=== PATIENT | male | born 1955 | race Caucasian/White ===

== ENCOUNTER → 2019-07-24 14:52 | Outpatient (BNVA) | payer OTHER, SELFPAY | PROVIDERS: Family Provider Nurse Practitioner; PCP Nurse Practitioner; Visit Provider Nurse Practitioner | DX: I10 Essential (primary) hypertension (principal); K29.60 Other gastritis without bleeding; E78.2 Mixed hyperlipidemia; R39.11 Hesitancy of micturition; E11.9 Type 2 diabetes mellitus without complications; R31.9 Hematuria, unspecified; Z12.5 Encounter for screening for malignant neoplasm of prostate; N48.9 Disorder of penis, unspecified | CPT/HCPCS: 80053; 80061; 81000; 81001; 85025; G0103 ==

== ENCOUNTER → 2019-07-26 13:51 | Outpatient (BNVA) | payer OTHER, SELFPAY | PROVIDERS: Family Provider Nurse Practitioner; PCP Nurse Practitioner; Visit Provider Urology | DX: R39.11 Hesitancy of micturition (principal); N48.9 Disorder of penis, unspecified; N40.1 Benign prostatic hyperplasia with lower urinary tract symptoms; R97.20 Elevated prostate specific antigen [PSA] | CPT/HCPCS: 81001 ==

== ENCOUNTER → 2019-07-31 12:04 | Outpatient (BNVA) | payer OTHER, SELFPAY | PROVIDERS: Family Provider Nurse Practitioner; PCP Nurse Practitioner; Visit Provider Urology | DX: N48.9 Disorder of penis, unspecified (principal) | CPT/HCPCS: 88305 ==

== ENCOUNTER → 2019-08-07 10:10 | Outpatient (BNVA) | payer OTHER, SELFPAY | PROVIDERS: Family Provider Nurse Practitioner; PCP Nurse Practitioner; Visit Provider Urology | DX: N48.9 Disorder of penis, unspecified (principal); C60.9 Malignant neoplasm of penis, unspecified; N40.1 Benign prostatic hyperplasia with lower urinary tract symptoms; R97.20 Elevated prostate specific antigen [PSA] | CPT/HCPCS: 81001 ==

== ENCOUNTER 2019-08-11 14:39 | Observation (INO) | payer OTHER, SELFPAY ==
[2019-08-09 10:34] VITALS: BMI 26.5
--- NOTE | 2019-08-10 13:12 | SUR.PREOP ---
pt insurance hasnt approved surgery yet, will be rescheduled to tomorrow.
[2019-08-11] VITALS (13 sets, daily range): BP systolic 105–148; BP diastolic 48–83; PULSE 66–96; RESP 13–20; TEMP 36.3–37; O2SAT 94–99
[2019-08-11] MEDS: sodium chloride 0.9% 1,000 ML 30 ML IV (11:24)
--- NOTE | 2019-08-11 12:03 | P.ANESASSM_ITS ---
Pre-Anesthetic Assessment Pre-Anesthetic Assessment: Height/Weight: Height 1.83 m Weight 88.677 kg Temp Pulse Resp BP Pulse Ox 98.1 F 79 18 141/83 99 08/11/19 11:02 08/11/19 11:02 08/11/19 11:02 08/11/19 11:02 08/11/19 11:02 Preop Diagnosis: Invasive penile cancer Proposed Procedure: Operation Date: 08/11/19 12:30 Proposed Procedures p PARTIAL VERSUS TOTAL PENECTOMY [id number] C60.9(Not Applicable) - Shaggy Gray MD s poss Cystoscopy(Not Applicable) - Shaggy Gray MD Familial anesthetic complications: None Was Beta Leo taken within 24 hours: N/A Last intake: Intake Last Liquid Date 08/10/19 Last Liquid Time 20:00 Last Solid Date 08/11/19 Last Solid Time 19:30 Social: Social History: No alcohol and No tobacco Exam: Pre-Anes Outpt Exam: alert, oriented x 3, clear to auscultation bilaterally and regular rate & rhythm Airway: Cervical ROM: WNL MP: 3 Dentition: False Pulmonary: Pulmonary: None reported CV/HEM: CV/HEM: HTN GI: GI: GERD Metabolic: Metabolic: DM (Diet controlled) and Hyperlipidemia Neuropsych: Neuropsych: None reported Anesthetic Plan: ASA status: 2 Anesthesia: General Risk of > 500 ml blood loss (7ml/kg in children): No Meds/Allergies Current Medications: Current Medications Generic Name Dose Route Start Last Admin Trade Name Freq PRN Reason Stop Dose Admin Sodium Chloride 1,000 mls @ 30 ml s/hr 08/11/19 11:00 08/11/19 11:24 Sodium Chloride 0.9% IV 08/12/19 10:59 30 mls/hr .Q24H FARTUN Administration PFSH Anesthesia PFSH: Medical History BPH NOS w ur obs/LUTS Controlled diabetes mellitus without complication Elevated PSA HTN, goal below 130/80 Mixed hyperlipidemia Reflux gastritis Squamous cell skin cancer, penis: glans Surgical History History of appendectomy Family History Other Diabetes Hypertension Social History (Reviewed 08/09/19 @ 10:32 by Tayler Marquis Smoking and tobacco status: light tobacco smoker smokeless tobacco Smokeless tobacco user: chewing tobacco Second hand smoke exposure: No Smoking risk assessment/counseling performed?: No Alcohol intake: never Desire information about alcohol rehabilitation?: No Counseling given: No Desire information about substance/drug rehabilitation?: No Counseling given: No Adopted: No Caregiver/support person: No Lives independently: Yes Household members: spouse Housing: House Marital status: Number of children: 2 service: No Current occupational status: retired Pets and animals: No History of recent travel: No Current gender identity: Male Data Anesthesia Cardiac Studies: No Data to Display
--- NOTE | 2019-08-11 12:41 | P.HPUD_ITS ---
Surgery/Procedure H&P Update DATE OF PROCEDURE: August 11, 2019 DATE H&P PERFORMED: 08/07/19 H&P UPDATE INFORMATION: I have reviewed H&P completed within last 30 days, I have examined patient prior to procedure, No changes to prior documentation and H&P is in [facility] EMR on date indicated PREOP DIAGNOSIS: Invasive penile cancer PLANNED PROCEDURE: Operation Date: 08/11/19 12:30 Proposed Procedures p PARTIAL VERSUS TOTAL PENECTOMY [id number] C60.9(Not Applicable) - Shaggy Gray MD s poss Cystoscopy(Not Applicable) - Shaggy Gray MD
[2019-08-11] MEDS: neomycin-poly-bacitracin oint 28 gm 1 APPLIC TOPICAL (14:14)
--- NOTE | 2019-08-11 14:23 | P.OP_ITS ---
Operative Report Date of procedure: August 11, 2019 Pre-op Diagnosis: Invasive penile cancer Post-op diagnosis: same Procedure Done: Partial penectomy Specimens removed/disposition: Distal penis including glans Surgeon: Isaac Anesthesia: General (Nahid NAV) Estimated blood loss: Less than 50 cc Tourniquet time: Less than 30 minutes Urine output: Not measured Complications: None Findings: Clear margins grossly with approximately 2 cm measured between the lockwood and the proximal division point. Good urethral spatulation with neomeatus No significant bleeding. Condition: stable Disposition: PACU Brief History: Aiden is a very pleasant 64-year-old white male who recently presented to the office with a fungating mass on his penis which was biopsied and shown to have squamous cell carcinoma with invasion. There was some mild enlargement of his ilioinguinal lymph nodes he was placed on antibiotics. Originally was scheduled for partial penectomy yesterday but due to delay in pr ior authorization by his insurance company he was postponed until today. Informed consent was obtained after very prolonged multiple conversations regarding the appropriateness of surgical excision, implications of change of lifestyle etc. He and his both consented. Procedure: After routine preoperative evaluation examination and obtaining of i nformed consent he was taken to the operating suite on 08/11/2019 where general anesthesia was administered without difficulty after appropriate timeout was performed, SCDs confirmed to be functioning, preoperative antibiotics administered, beta-marta protocol confirmed. Positioned on the table in supine position pain careful attention to avoiding pressure points. Prior to prepping and draping the foreskin was retracted landmarks ascertained. He had good penile length which would allow for what appeared to be at least a 2 cm margin and 4 cm plus residual shaft. He was then prepped and draped in the usual sterile fashion A skin incision was made circumferentially at the appropriate level based on the above measurements. Incision was taken down to the fasting tissues of the phallus and was bluntly retracted back to the base. With electrocautery the incision was further deepened down to the corpora cavernosa and the 12:00 neurovascular bundles were multiply ligated for hemostatic control. Scoring with electro cautery circumferentially was used to delineate the landmarks for transection. The urethra was easily definable and length to almost 2 cm was marked for transection. A tourniquet with 1/2 inch Javan drain was then placed at the base and double wrapped with tight hemostat applied. The transection of the penis was begun at the marked area at 12 o'clock position taken down through both corpora cavernosa and laterally and posteriorly to the corporal spongiosum which was sharply dissected off of the distal specimen for a length as marked above and then transected at that point. The corporal cavernosal was closed with interrupted 2-0 Vicryl's utilizing the outer corporal sheath, interseptum, and contralateral outer corporal sheath sequentially and then closed down to close to the level of the corporal spongiosum. The urethra was then spatulated dorsally. Stay sutures were placed at the apex and at the distal wings. A 16 Icelandic catheter was passed to confirm the patency of the urethra proximal to the corporal cavernosal sutures. The tourniquet was then removed. A couple small bleeding sites along the corporal spongiosum were carefully cauterized. There was no bleeding from the corporal cavernosus. The skin was then brought to the distal aspect of the narinder-phallus and the previously placed stay sutures of 3-0 chromic were used to secure the skin ventrally to the urethral neomeatus in corresponding positions running the most ventral horizontal surface. This was performed bilaterally from the lateral wings to the apex where the previous stay suture had been placed. Closure of the skin dorsally covering the corporal cavernosum closure was then conducted with a running 4-0 chromic. 16 Icelandic Hernandez catheter was then placed through the narinder-urethral meatus into the bladder without difficulty and the balloon was inflated and urine drained. Sterile fluff dressing was applied over the incisions and maternity briefs were placed for light compression. He tolerated the procedure well without complications and was awakened in the operating room and returned to the recovery in stable condition. PLANS: 1. Monitor overnight to assure no significant bleeding and good catheter function with anticipation of discharge tomorrow
[2019-08-11] MEDS: lactated ringers 1,000 ML 50 ML IV (16:59)
[2019-08-11] MEDS: doxycycline 100 mg Tablet PO (19:36)
[2019-08-12] MEDS: HYDROcodone-acetaminophen 5-325 mg Tablet 1 TAB PO (02:56)
[2019-08-12 04:00] VITALS: BP 126/69; PULSE 75; RESP 18; TEMP 36.8; O2SAT 94
[2019-08-12 07:42] VITALS: BP 126/90
[2019-08-12] MEDS: losartan 50 mg Tablet 100 MG PO (07:42)
[2019-08-12] MEDS: amlodipine 10 mg Tablet PO (07:42)
[2019-08-12] MEDS: tamsulosin 0.4 mg Capsule PO (07:43)
[2019-08-12] MEDS: atorvastatin 40 mg Tablet 20 MG PO (07:43)
[2019-08-12] MEDS: doxycycline 100 mg Tablet PO (07:44)
[2019-08-12] MEDS: FUROsemide 20 mg Tablet PO (07:44)
[2019-08-12] MEDS: lactated ringers 1,000 ML 50 ML IV (07:45)
[2019-08-12 08:00] VITALS: BP 120/66; PULSE 68; RESP 16; TEMP 36.8; O2SAT 96
--- NOTE | 2019-08-12 08:31 | PM.DCS ---
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 Partial penectomy 08/11/2019. (2) BPH NOS w ur obs/LUTS: Status: Acute (3) HTN, goal below 130/80: Status: Chronic Reason for Visit Reason for Visit: partial versus total penectomy Hospital Course Hospital Course: Admitted on the day of the procedure which went well. Thankfully there was enough shaft length to perform a partial penectomy. Shaft length remaining measured at 4 cm. 1.5 to 2 cm margins were obtained. Hernandez catheter was left indwelling at the completion of the procedure. He was observed overnight with no complications related to bleeding or uncontrolled pain. Was deemed a good candidate for further convalescence at home on postoperative day #1 and was discharged in the care of his family. Catheter was remaining in place at discharge and he was trained in bag management between the leg bag and night bag. A StatLock was used to secure the catheter. Was to continue the doxycycline and reassessment of his inguinal lymph node chains after at least a month. Voiding trial on Wednesday week after discharge. Discharged on 08/11/2019 in stable condition. Physical Exam Const: COMMON NORMALS: no acute distress, alert and well nourished GENERAL APPEARANCE: well kempt and well developed ORIENTATION/CONSCIOUSNESS: not confused Resp: COMMON NORMALS: normal respiratory effort EFFORT & INSPECTION: No labored and No Actively coughing : OTHER: No active bleeding. Catheter functioning well. Clear urine draining. Wounds look healthy. Dressings will be changed prior to discharge. Neuro: SENSORIUM/ORIENTATION: Yes alert Psych: COMMON NORMALS: mental status grossly normal APPEARANCE: Yes grossly normal and Yes well kempt ATTITUDE: Yes calm and Yes engaged Urinary Catheter Management^: Hernandez: Cath Placed During This Visit: yes Reason for Continuing Indwelling Catheter: Perioperative Use in Selected Surgeries Urinary Catheter Date of Insertion: 08/11/19 Urinary Catheter Time of Insertion: 14:00 Discharge Data Data Completed and Pending: Pending at discharge Category Date Time Status Pathology: Surgic al [PTH] Routine Pth 08/11/19 14:16 Ordered Vitals: Last Vital Signs Temp 98.3 F 08/12/19 08:00 Pulse 68 08/12/19 08:00 Resp 16 08/12/19 08:00 BP 120/66 08/12/19 08:00 Pulse Ox 96 08/12/19 08:00 Discharge Plan Discharge Patient Disposition: Home, Self-Care Condition: Stable Prescriptions: [place] 5-325 mg tablet 1 tab PO Q8H PRN (Reason: pain) Qty: 10 RF: 0 Continued sucralfate [Carafate] 1 gram tablet 1 gm PO BID Qty: 60 RF: 5 pravastatin 40 mg tablet 40 mg PO DAILY Qty: 30 RF: 5 olmesartan 40 mg tablet 40 mg PO DAILY Qty: 30 RF: 5 amlodipine 10 mg tablet 10 mg PO DAILY Qty: 30 RF: 5 furosemide [Lasix] 20 mg tablet 20 mg PO DAILY Qty: 30 RF: 5 tamsulosin [Flomax] 0.4 mg capsule 0.4 mg PO DAILY Qty: 30 RF: 5 doxycycline hyclate 100 mg capsule 100 mg PO BID Qty: 60 RF: 1 Discharge Orders: Discharge Order (Routine); Ordered 08/12/19 Ordered By: Shaggy Gray Referrals: Shaggy Gray MD [Physician] - 08/15/19 (Voiding trial) Discharge Diet: Usual diet Discharge Activity: Limit activity as instructed Patient Instructions: Hydrocodone/Acetaminophen (By mouth), Hernandez Catheter Placement and Care (GEN), Urinary Leg Bag (GEN) Activity Restrictions/Additional Instructions: 1. No lifting >10 pounds x 3 to 4 weeks. 2. We will remove the catheter on follow-up visit in my office next Wednesday. 3. Can change dressings as needed. 4. Please call for any concerns or questions. Discharge Attestations Time Spent in Discharge Care*: greater than 30 min Quality Metrics Clinical Quality Measures During this hospital stay, did patient experience: None Coding Level of Care Code Acute Wound/Ostomy Nurse for Chg Fwd Diagnoses Squamous cell skin cancer, penis: glans C60.9 BPH NOS w ur obs/LUTS N40.1 HTN, goal below 130/80 I10
[2019-08-12 08:34] VITALS: BP 120/66; PULSE 68; RESP 16; TEMP 36.8; O2SAT 96
== END 2019-08-12 10:24 | disposition home or self-care (01) ==
LOC: MEDSURG 14:39
PROVIDERS: Admitting Provider Urology; PCP Nurse Practitioner; Visit Provider Urology
PROC: (CPT 54125; principal; 2019-08-11 12:30)
DX: C60.9 Malignant neoplasm of penis, unspecified (principal); N40.1 Benign prostatic hyperplasia with lower urinary tract symptoms; N13.8 Other obstructive and reflux uropathy; I10 Essential (primary) hypertension; K21.9 Gastro-esophageal reflux disease without esophagitis; E11.9 Type 2 diabetes mellitus without complications; E78.2 Mixed hyperlipidemia; Z82.49 Family history of ischemic heart disease and other diseases of the circulatory system; Z83.3 Family history of diabetes mellitus; F17.220 Nicotine dependence, chewing tobacco, uncomplicated
CPT/HCPCS: 54120; 12345; 88305; G0378; J0690; J2001; J2370; J2405; J2704; J3010; J3490; J7030

== ENCOUNTER 2019-09-28 06:34 | Outpatient (CLI) | payer OTHER, SELFPAY ==
--- NOTE | 2019-09-28 06:46 | CT_ITS ---
WS: [id number] CT ABDOMEN PELVIS TECHNIQUE: Noncontrast CT of the abdomen and contrast-enhanced CT of the abdomen and pelvis with jean nal and sagittal reformatted images. CLINICAL INFORMATION: Penile Cancer COMPARISON: None. DLP: 1889.[address] scans at [facility] use at least one of these dose optimization techniques: automat ed exposure control; mA and/or kV adjustment per patient size (includes targeted exams where dose is matched to clinical indication); or iterative reconstruction. FINDINGS: Mild diffuse fatty infiltration liver. Portal vein and splenic vein are patent. Normal gallbladder. N ormal spleen. Normal GE junction. Lung bases are well aerated. Adrenal glands are normal. Normal elle l parenchymal enhancement. No hydronephrosis. 10 mm left renal cyst. No obstructing renal or ureteral calculi. Normal caliber abdominal aorta. Mild diffuse bladder wall thickening. Prostate measures 3.2 x 4.2 CM. Correlation PSA. Normal sigmoid colon. Sigmoid diverticulosis. No evidence of acute diverticulitis. Enlarged bilateral inguinal lymph nodes. Right inguinal lymph node measuring 2.7 x 1.4 cm. Left inguinal lymph node adonay suring 1.9 x 1.2 CM. No pelvic sidewall lymphadenopathy. No iliac chain lymphadenopathy. No periaorti c lymphadenopathy. CT/CT abdomen pelvis wo/w [id number] IMPRESSION: 1. Slightly enlarged bilateral inguinal lymph nodes right greater than left no nspecific may be reactive versus less likely metastatic. Largest lymph node on the right 2.7 x 1.4 cm 2. Prostate measures 4.2 x 3.2 CM. Recommend correlation PSA. Mild diffuse jose dder wall thickening likely due to bladder outlet obstruction. 3. Mild diffuse fatty infiltration liver. 4. 10 mm left renal cyst. 5. Sigmoid diverticulosis. No evidence of acute diverticulitis 6. Bilateral hydroceles with diffuse scrotal skin thickening.
[2019-09-28 07:35] LABS: Blood Urea Nitrogen 20 mg/dL (8-23); Glomerular Filtration Rate 55.6 mL/min (90-130)
[2019-09-28] MEDS: iodixanol 320 mg/mL 100mL Btl 95 ML IV (07:57)
== END 2019-09-28 06:35 | disposition home or self-care (01) ==
PROVIDERS: PCP Nurse Practitioner; Visit Provider Urology
DX: C60.9 Malignant neoplasm of penis, unspecified (principal); N40.0 Benign prostatic hyperplasia without lower urinary tract symptoms; K76.0 Fatty (change of) liver, not elsewhere classified; N28.1 Cyst of kidney, acquired; K57.30 Diverticulosis of large intestine without perforation or abscess without bleeding; N43.3 Hydrocele, unspecified
CPT/HCPCS: 74178; 81001; 82565; 84520

== ENCOUNTER 2019-11-10 08:01 | Outpatient (CLI) | payer OTHER, SELFPAY ==
--- NOTE | 2019-11-10 14:56 | ONC CON_ITS ---
Dr. Lemons New Patient Note Patient: Aiden Simon Unit #: [id number]: 1955 Dicatated By: Henry Lemons M.D.Date of Visit: Nov 10, 2019 Onc MED New Patient/Consult Referring Physician: Dr. Shaggy Gray M.D. Chief Complaint: Penile cancer. 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 By clinical evaluation his disease is stage IV (T1b, N2, M1). He has been in good general health. He had presented to Dr. Gray in July 2019 with a 6-month history of worsening skin changes in head of the penis. His exam showed invasive appearing lesions on the glans penis which were grossly suspicious for squamous cell carcinoma. 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 He then underwent partial penectomy on 08/11/2019. 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 It measured 4.0 x 3.0 cm. The tumor was 4 cm from the skin margin. It was noted to invade into the lamina propria for a depth of 10 mm. There was vascular invasion identified. There was no invasion in the corpus cavernosum, corpus spongiosum, or Appiah's fascia. Pathologic staging was T1b. Following the surgery he had complications with scrotal swelling and erythema, requiring prolonged antibiotic therapy. His CT abdomen/pelvis on 09/28/2019 showed slightly enlarged bilateral inguinal lymph nodes, right greater than left, with the largest node measuring 2.7 x 1.4 cm. There was mild diffuse fatty infiltration of the liver. There was evidence of bilateral hydroceles with diffuse scrotal skin thickening. He was then referred to Dr. Tk Yao at the [facility]. His staging PET/CT on 11/01/2019 showed multiple retroperitoneal, bilateral iliac, bilateral inguinal, and right retrocrural FDG avid enlarged lymph nodes with maximum SUV 23. Focal FDG avid soft tissue nodule at the penile root had maximum SUV 23.6. This was all consistent with metastatic involvement. A left level 3 cervical lymph node was FDG avid with maximum SUV 8.4, felt to be nonspecific. Additional findings included mildly enlarged calcified and noncalcified mediastinal and bilateral hilar lymph nodes without associated FDG activity, felt to be likely reactive. Given the PET/CT findings, he is being seen here now for neoadjuvant chemotherapy. He has not been feeling very good generally. He says he is tired all the time and he sleeps a lot, but he is still doing light work. ECOG score is 1. He has good appetite. He has had no weight loss. He does not have fever or night sweats. He is hard of hearing. He does not complain of shortness of breath, cough, or chest pain. He currently has no GI complaints. He typically has nocturia 2 or 3 times, but he otherwise is not having difficulty voiding. He does have pain in the groin area on both sides. He has no significant joint or bone pain. He does not complain of headache or dizziness, and he has no focal neurologic symptoms. Past Medical History: His medical history consists of benign prostatic hypertrophy, gastroesophageal reflux disease, hyperlipidemia, hypertension, and type II diabetes, diet controlled. Past Surgical History: He underwent biopsy of the penis on 07/27/2019 and he underwent partial penectomy on 08/11/2019. His only other surgery was an appendectomy. Medications: amLODIPine Besylate 1 Tablet (of 10 mg) Oral daily, Ciprofloxacin HCl 1 Tablet (of 500 mg) Oral b.i.d., Furosemide 1 Tablet (of 20 mg) Oral daily, Olmesartan Medoxomil 1 Tablet (of 40 mg) Oral daily, Pravastatin Sodium 1 Tablet (of 40 mg) Oral daily, Sucralfate 1 Tablet (of 1 g) Oral b.i.d., Tamsulosin HCl 1 Capsule (of 0.4 mg) Oral daily Allergies: No Known Allergies. Social History: Mr. Simon is . He is retired. 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 He is a non-smoker, but he chews tobacco 3 times a day. He drinks of beer once a week. Family History: Father with heart attack at age 70. Mother at 69 and a sister at age 62 with cancer, type unknown to the patient. Four brothers are in good health. Review Of Symptoms: Constitutional - His energy has not been very good. He feels tired all the time and he sleeps a lot, but he is still doing light work. He has good appetite. He has not lost weight. He does not have fever or night sweats. ECOG score is 1, Eyes - No change in vision, ENMT - He is hard of hearing. No sinus congestion/drainage. No mouth sores. No sore throat or difficulty swallowing, Hematologic/Lymphatic - No abnormal bruising or bleeding, Respiratory - No shortness of breath. No cough. No pleuritic pain or hemoptysis, Cardiovascular - No angina pain. No palpitations, Gastrointestinal - No nausea or vomiting. He has heartburn/acid reflux, but it is managed adequately with medication. No diarrhea or constipation. No blood in the stool or black stools, Genitourinary (M) - No dysuria or hematuria. No urinary frequency, but he has nocturia up to 2 times. No urgency or incontinence. He has been on antibiotic therapy for scrotal swelling/lymphedema. He has having discomfort in the groin area on both sides, Musculoskeletal - No joint or bone pain, Integumentary - He has no other skin problems, Neurologic - No headache or dizziness. No numbness or tingling. No other focal neurologic symptoms, Psychiatric - No anxiety or depression. No insomnia. Vital Signs: Performed on Nov 10, 2019 08:35: 0, 26.34, 2.10 sq.m, 72.00 in, 99 %, 88 /min, 22 /min, 161/85 mm(hg) (HIGH), 98.3 F (LOW), and 194.2 lbs (HIGH). Physical Examination: Constitutional - He appears to be in good general health, Eyes - Sclerae nonicteric. Conjunctivae clear, ENMT - No lesions noted in the oral cavity, Neck - No mass or thyromegaly, Hematologic/Lymphatic - No cervical, clavicular, or axillary adenopathy, Respiratory - Lungs are clear with good air movement bilaterally, Cardiovascular - Heart rhythm is regular. There is no murmur, gallop, or rub noted, Abdomen - Soft and non-tender. Liver and spleen are not enlarged. There is no abdominal mass or ascites noted. There are palpable inguinal lymph nodes bilaterally, in the range of 2 cm, Genitalia/Groin/Buttock (M) - He has had a partial penectomy. There is residual scrotal swelling with mild erythema. There is a small nodule palpable just superior to the origin of the penile shaft and just to the left of the midline, Back/Spine - No spine or CVA tenderness noted, Extremities - No lower extremity edema. Posterior tibial pulses are palpable bilaterally, Integumentary - No rashes. No suspicious skin lesions noted, Neurologic - No focal neurologic deficits noted. Impression: 1. 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 By clinical evaluation his disease is stage IV (T1b, N. 2, M1) with PET/CT evidence of bilateral inguinal, iliac, retroperitoneal, and retrocrural lymphadenopathy as well as a small metastatic nodule at the penile root. There is additional FDG avid left cervical level 3 lymph node felt to be indeterminate. 2. He underwent partial penectomy on 08/11/2019. 3. He has required prolonged antibiotic therapy for postoperative lymphedema/scrotal swelling. His other medical illnesses include: 4. Hypertension. 5. Hyperlipidemia. 6. Type 2 diabetes, diet controlled. 7. GERD. 8. Benign prostatic hypertrophy. Plan: The surgical/pathology results and the PET/CT findings were reviewed with the patient and his . We discussed the clinical implications. He has advanced penile cancer, and he has been recommended to initially undergo neoadjuvant chemotherapy. The standard regimen for this is a combination of paclitaxel, ifosfamide, and cisplatin given daily for 3 days with cycles repeated every 3 to 4 weeks for a total of 4 cycles. I reviewed anticipated side effects with the chemotherapy including the potential for nausea/vomiting, fatigue, alopecia, low blood counts, bladder irritation, and neuropathy, among others. We also discussed the fact that the neuropathy can include hearing loss. The plan will be to restage with PET/CT after 4 cycles. He will need a Port-A-Cath venous access device and I will go ahead and arrange for him to see one of the surgeons here. He will then return to begin his first cycle of chemotherapy. In the meantime, I also am going to request a next generation sequencing on his tumor, as he will almost certainly require transitioning to second line treatment somewhere down the line. Signed By: Henry Lemons M.D. <<Signature on File>>
== END 2019-11-10 08:02 | disposition home or self-care (01) ==
LOC: ONCMED 08:04
PROVIDERS: PCP Nurse Practitioner; Referring Provider Urology; Visit Provider Internal Medicine Medical Oncology
DX: C60.1 Malignant neoplasm of glans penis (principal); C79.89 Secondary malignant neoplasm of other specified sites; I10 Essential (primary) hypertension; E78.5 Hyperlipidemia, unspecified; E11.9 Type 2 diabetes mellitus without complications; K21.9 Gastro-esophageal reflux disease without esophagitis; N40.0 Benign prostatic hyperplasia without lower urinary tract symptoms
CPT/HCPCS: 99205

== ENCOUNTER → 2019-11-21 15:06 | Outpatient (BNVA) | payer OTHER, SELFPAY | PROVIDERS: PCP Nurse Practitioner; Visit Provider Surgery | DX: Z11.59 Encounter for screening for other viral diseases (principal); R59.1 Generalized enlarged lymph nodes | CPT/HCPCS: 87635 ==

== ENCOUNTER 2019-11-24 05:56 | Day surgery (SDC) | payer OTHER, SELFPAY ==
[2019-11-22 09:27] VITALS: BMI 23.6
--- NOTE | 2019-11-24 | SCC_ITS ---
Procedure Done: Placement of PowerPort in the left subclavian vein 30.2 seconds of fluoroscopic guidance, for a cumulative dose of 6.48 mGy, was provided to Dr. Li by the radiology department. C-arm images of the chest were saved for the patient's permanent record. [facility]
[2019-11-24 06:17] VITALS: BP 132/84; PULSE 65; RESP 18; TEMP 36.2; O2SAT 98
--- NOTE | 2019-11-24 06:35 | SC_ITS ---
WS: [id number] C-arm fluoroscopy of the left chest for Port-A-Cath placement, 11/24/2019 Clinical Data: port placement Comparison: None. Findings: The left Port-A-Cath has been inserted. It appears to end in the superior vena cava. SC/C-arm FL for CVA [id number] Impression: Left Port-A-Cath insertion.
[2019-11-24] MEDS: sodium chloride 0.9% 1,000 ML 30 ML IV (06:39)
--- NOTE | 2019-11-24 06:53 | W.PM.OPSUD ---
Surgery/Procedure H&P Update DATE OF PROCEDURE: November 24, 2019 DATE H&P PERFORMED: 11/21/19 H&P UPDATE INFORMATION: I have reviewed H&P completed within last 30 days, I have examined patient prior to procedure and No changes to prior documentation PREOP DIAGNOSIS: penile ca PLANNED PROCEDURE: Operation Date: 11/24/19 07:00 Proposed Procedures p Portacath Placement 44283 R59.1(Not Applicable) - Linwood Li MD
--- NOTE | 2019-11-24 07:01 | ANES.PREANE2 ---
Pre-Anesthetic Assessment Pre-Anesthetic Assessment: Height/Weight: Height 1.78 m Weight 74.843 kg Temp Pulse Resp BP Pulse Ox 97.2 F L 65 18 132/84 98 11/24/19 06:17 11/24/19 06:17 11/24/19 06:17 11/24/19 06:17 11/24/19 06:17 Preop Diagnosis: penile ca Proposed Procedure: Operation Date: 11/24/19 07:00 Proposed Procedures p Portacath Placement 10646 R59.1(Not Applicable) - Linwood Li MD Was Beta Leo taken within 24 hours: N/A Last intake: Intake Last Liquid Date 11/23/19 Last Liquid Time 20:30 Last Solid Date 11/23/19 Last Solid Time 20:30 Social: Social History: No alcohol and No tobacco Exam: Pre-Anes Outpt Exam: alert, oriented x 3, clear to auscultation bilaterally and regular rate & rhythm Airway: Submandibular: WNL Cervical ROM: WNL Dentition: Chipped History/ROS: No significant complaints Pulmonary: Pulmonary: None reported CV/HEM: CV/HEM: HTN : Comments: BPH Hepatic: Hepatic: None reported GI: GI: None reported Metabolic: Metabolic: None reported Musc/skel: Musc/skel: None reported Neuropsych: Neuropsych: None reported Anesthetic Plan: ASA status: 3 Anesthesia: MAC Meds/Allergies Current Medications: Current Medications Generic Name Dose Route Start Last Admin Trade Name Freq PRN Reason Stop Dose Admin Sodium Chloride 1,000 mls @ 30 ml s/hr 11/24/19 06:30 11/24/19 06:39 Sodium Chloride 0.9% IV 30 mls/hr .Q24H FARTUN Administration PFSH Anesthesia PFSH: Medical History BPH NOS w ur obs/LUTS Controlled diabetes mellitus without complication Elevated PSA HTN, goal below 130/80 Mixed hyperlipidemia Reflux gastritis Scrotal swelling Squamous cell skin cancer, 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 Partial penectomy 08/11/2019. Surgical History (Updated 11/24/19 @ 07:03 by Linwood Li MD) History of appendectomy Port-A-Cath in place (11/24/19) Family History Father CAD (coronary artery disease) Sister Cancer Mother Cancer Other Diabetes Hypertension Denies family history of Anesthesia complication Bleeding disorder Social History Smoking and tobacco status: light tobacco smoker smokeless tobacco Smokeless tobacco user: chewing tobacco Second hand smoke exposure: No Smoking risk assessment/counseling performed?: No Alcohol intake: never Desire information about alcohol rehabilitation?: No Counseling given: No Desire information about substance/drug rehabilitation?: No Counseling given: No Adopted: No Caregiver/support person: No Lives independently: Yes Household members: spouse Housing: House Marital status: Number of children: 2 service: No Current occupational status: retired Pets and animals: No History of recent travel: No Current gender identity: Male Data Anesthesia Cardiac Studies: No Data to Display
[2019-11-24] MEDS: lidocaine 1% INJ 20 mL IM (07:21)
[2019-11-24] MEDS: heparin, porcine 1,000 unit/mL INJ 10 mL 10000 UNIT INJECTION (07:22)
[2019-11-24 07:53] VITALS: BP 108/71; PULSE 64; RESP 18; TEMP 36.6; O2SAT 95
[2019-11-24 08:11] VITALS: BP 112/72; PULSE 59; RESP 18; TEMP 36.6; O2SAT 97
--- NOTE | 2019-11-24 08:12 | PM.OP ---
Operative Report Date of procedure: November 24, 2019 Pre-op Diagnosis: penile ca Post-op diagnosis: same Procedure Done: Placement of PowerPort in the left subclavian vein Fluoroscopic guidance and interpretation for placement of catheter Pathology: none sent Surgeon: Linwood Li Anesthesia: MAC Estimated blood loss (mL): 5 Condition: stable Disposition: PACU Procedure: The patient was taken to the Operating Room and the chest and neck bilaterally were prepped and draped in a sterile manner after the antibiotic had been administered and shoulder rolls had been placed. A total of 10 mL of 1% lidocaine with 0.5% Marcaine was infiltrated under the clavicle on the left side at the site of the planned entry into the subclavian vein. An introducer needle was then used to access the subclavian vein under the clavicle and after withdrawing blood syringe was removed and a guidewire passed under fluoroscopy into the superior vena cava. The site of the planned port was then marked on the chest and a 15 blade was used to make a 3 cm skin incision this was extended into the subcutaneous tissue using electrocautery and a subcutaneous pocket over the pectoralis fascia was created 2-0 Vicryl suture was used to suture the port to the pectoral fascia in the pocket on 3 sides. The catheter, after having been flushed with hep saline, was attached to the tunneler and a tunnel created between the port site and the subclavian vein entry site. Under fluoroscopy the dilator sheath was passed over the guidewire into the proximal superior vena cava. The inner dilator was removed and the sheath left behind and~ the catheter was introduced through the peel-away sheath with the tip in the superior vena cava. The peel-away sheath was removed. The proximal end of the catheter was cut to the right size and was attached to the port. Using a Murrell needle the port was accessed, it withdrew blood easily and flushed easily. A final 5cc of heparin was used to flush the PowerPort. The subcutaneous tissue was approximated using interrupted 3-0 Vicryl sutures and the skin at the introducer site and the port site was closed using subcuticular running 4-0 Monocryl sutures. Surgical glue was applied and the patient was stable throughout the procedure. Fluoroscopic guidance and interpretation was performed for introduction of the guidewire in the left subclavian vein, passage of dilator and placement of catheter tip in the distal superior vena cava.
== END 2019-11-24 08:40 | disposition home or self-care (01) ==
PROVIDERS: PCP Nurse Practitioner; Visit Provider Surgery
PROC: (CPT 36561; principal; 2019-11-24 07:00)
DX: C60.9 Malignant neoplasm of penis, unspecified (principal); N40.1 Benign prostatic hyperplasia with lower urinary tract symptoms; N13.8 Other obstructive and reflux uropathy; I10 Essential (primary) hypertension; E78.2 Mixed hyperlipidemia; Z82.49 Family history of ischemic heart disease and other diseases of the circulatory system; Z80.9 Family history of malignant neoplasm, unspecified; Z87.891 Personal history of nicotine dependence
CPT/HCPCS: 36561; 12345; 76000; 77001; C1788; J0690; J1644; J2250; J2704; J2765; J3010; J3490; J7030

== ENCOUNTER 2019-12-15 05:39 | Outpatient (RCR) | payer OTHER, SELFPAY ==
[2019-11-29 08:32] LABS: Basophils % 0.1 %; Hematocrit 36.4 % (42.0-52.0); Hemoglobin 11.3 g/dL (11.7-16.6); Lymphocytes # 0.6 10^3/uL (0.8-4.8); Lymphocytes % 5.6 %; Mean Corpuscular Volume 87.1 fL (80-94); Mean Platelet Volume 9.1 fL (7.4-10.4); Monocytes # 0.1 10^3/uL (0.2-0.9); Monocytes % 1.2 %; Neutrophils # 9.55 10^3/uL (1.8-7.7); Neutrophils % 92.5 %; Nucleated Red Blood Cells % 0 %; Platelet Count 350 10^3/cmm (130-400); Red Blood Count 4.18 10^6/uL (4.1-5.3); Red Cell Distribution Width 13.3 % (12.1-15.1); White Blood Count 10.3 10^3/uL (4.0-10.0)
[2019-11-29 08:57] LABS: Alanine Aminotransferase 22 U/L (0-41); Albumin Level 4.3 g/dL (3.5-5.2); Alkaline Phosphatase 88 IU/L (40-130); Anion Gap 16.9 (5-19); Aspartate Amino Transferase 23 U/L (0-40); Blood Urea Nitrogen 15 mg/dL (8-23); Carbon Dioxide 22 mmol/L (22-29); Chloride 102 mmol/L (98-107); Globulin 2.9 g/dL (1.3-4.6); Glucose 289 mg/dL (65-115); Osmolality Calculated 295 mOsm/kg (285-295); Potassium 3.9 mmol/L (3.5-5.1); Sodium 137 mmol/L (136-145); Total Bilirubin 0.3 mg/dL (0.15-1.2); Total Protein 7.2 g/dL (6.6-8.7)
[2019-11-29] MEDS: sodium chloride 0.9% 250 ML 75 ML IV ×2 (09:41)
[2019-12-04] MEDS: sodium chloride 0.9% 250 ML 75 ML IV (08:43)
[2019-12-04] MEDS: acetaminophen 325 mg Tablet 650 MG PO (10:55)
--- NOTE | 2019-12-04 13:39 | ONC FU_ITS ---
[facility] Patient Note Patient: Aiden Simon Unit #: [id number]: 1955 Dictated By: Kathia SharpDate of Visit: Dec 04, 2019 Onc MED Follow-Up/Prog Note Chief Complaint: Penile cancer. 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 By clinical evaluation his disease is stage IV (T1b, N2, M1). He has been in good general health. He had presented to Dr. Gray in July 2019 with a 6-month history of worsening skin changes in head of the penis. His exam showed invasive appearing lesions on the glans penis which were grossly suspicious for squamous cell carcinoma. 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 He then underwent partial penectomy on 08/11/2019. 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 It measured 4.0 x 3.0 cm. The tumor was 4 cm from the skin margin. It was noted to invade into the lamina propria for a depth of 10 mm. There was vascular invasion identified. There was no invasion in the corpus cavernosum, corpus spongiosum, or Appiah's fascia. Pathologic staging was T1b. Following the surgery he had complications with scrotal swelling and erythema, requiring prolonged antibiotic therapy. His CT abdomen/pelvis on 09/28/2019 showed slightly enlarged bilateral inguinal lymph nodes, right greater than left, with the largest node measuring 2.7 x 1.4 cm. There was mild diffuse fatty infiltration of the liver. There was evidence of bilateral hydroceles with diffuse scrotal skin thickening. He was then referred to Dr. Tk Yao at the [facility]. His staging PET/CT on 11/01/2019 showed multiple retroperitoneal, bilateral iliac, bilateral inguinal, and right retrocrural FDG avid enlarged lymph nodes with maximum SUV 23. Focal FDG avid soft tissue nodule at the penile root had maximum SUV 23.6. This was all consistent with metastatic involvement. A left level 3 cervical lymph node was FDG avid with maximum SUV 8.4, felt to be nonspecific. Additional findings included mildly enlarged calcified and noncalcified mediastinal and bilateral hilar lymph nodes without associated FDG activity, felt to be likely reactive. Given the PET/CT findings, he is being seen here now for neoadjuvant chemotherapy. He had left subclavian PowerPort placed by Dr. Li on 11/24/2019 Mr. Simon is here today to start his first cycle of Taxol/ifosfamide/cisplatin. He actually presented last week but only took 1 tablet of his steroids. Steroid compliance was confirmed today. He states he took 5 at 11:00 last night and again 5 tablets again at 4 AM. He has no new concerns. He denies any fever or chills. He has had no known Covid exposure or symptoms. He has had no Covid testing recently. He denies any pain. He states his breathing is good. He is very active working in his shop. 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 He states he does not watch TV and he does not sit still very long. He states his appetite is good. He has no neuropathy symptoms. He denies any bowel or bladder concerns. His ECOG is 0. Past Medical History: Benign prostatic hypertrophy Gastroesophageal reflux disease Hyperlipidemia Hypertension Type II diabetes Past Surgical History: Appendectomy Left subclavian PowerPort by Dr. Li???[facility] in 2019 Partial penectomy in 2020 Allergies: No Known Allergies. Medications: amLODIPine Besylate 1 Tablet (of 10 mg) Oral daily Furosemide 1 Tablet (of 20 mg) Oral daily Olmesartan Medoxomil 1 Tablet (of 40 mg) Oral daily Pravastatin Sodium 1 Tablet (of 40 mg) Oral daily Sucralfate 1 Tablet (of 1 g) Oral b.i.d. Tamsulosin HCl 1 Capsule (of 0.4 mg) Oral daily Family History: Mr. Simon's mother at age 62. Mr. Simon's father at age 70: heart attack. Mr. Simon has 1 sister who is . Father with heart attack at age 70. Mother at 69 and a sister at age 62 with cancer, type unknown to the patient. Four brothers are in good health. Social History: Mr. Simon is . He is a light tobacco smoker. He has no history of drinking. He has indicated exposure to the following products: cigarettes and chewing tobacco. He is retired. He restores [employer] for a hobby. He is a non-smoker, but he chews tobacco 3 times a day. He drinks of beer once a week. Review Of Symptoms: Constitutional Denies fevers, chills, night sweats, excessive fatigue or weight loss. Allergic/Immunologic No reactions. Eyes Denies significant visual changes. No diplopia. No amaurosis. ENMT Denies changes in hearing, sore throat, mouth sores, difficulty or changes in swallowing ability, and/or sinus drainage. Endocrine No diabetes, thyroid disease or hormone replacement. Denies hot flashes or night sweats. Hematologic/Lymphatic Denies easy bruising or bleeding. The patient denies any tender or palpable lymph nodes. Respiratory Denies dyspnea on exertion, chest pain, cough or hemoptysis. Denies orthopnea. Cardiovascular Denies anginal chest pain, palpitations or orthopnea. Gastrointestinal Denies nausea, vomiting, diarrhea, GI bleeding, or constipation. Denies change in bowel habits and/or stool color, no heartburn or early satiety. Genitourinary (M) Denies hematuria, dysuria, increased frequency, urgency, hesitancy or incontinence. Musculoskeletal Denies joint pain, swelling or redness. No decreased range of motion. Integumentary Denies chronic rashes, inflammation, ulcerations or skin changes. Neurologic Denies headache, blurred vision, and no areas of focal weakness or numbness. Normal gait. No sensory problems. Psychiatric Denies insomnia, depression, shanelle or mood swings. Vital Signs: Performed on Dec 04, 2019 08:33 Height - 72.00 in Weight - 195.2 lbs (HIGH) BSA - 2.11 sq.m BMI - 26.47 Temperature - 98.7 F Pulse - 98 /min Respiration - 18 /min BP - 146/84 mm(hg) (HIGH) O2 Sat - 98 % Pain - 0,0 - Fully active, able to carry on all predisease activities without restrictions. (ECOG) Physical Examination: Constitutional Alert, oriented, no acute distress. Skin pink, warm and dry. Head Normocephalic; atraumatic. Eyes Conjunctivae and sclerae are clear and without icterus. Pupils are reactive and equal. ENMT No oral exudates, ulcers, masses, thrush or mucositis. Oropharynx clear. Tongue normal. Neck Supple without masses or thyromegaly. No jugular venous distension. Hematologic/Lymphatic No petechiae or purpura. No tender or palpable lymph nodes in the cervical or supraclavicular areas. Respiratory Lungs are clear to auscultation without rhonchi or wheezing. Cardiovascular Regular rate and rhythm of heart without murmurs,clicks, gallops or rubs. Chest Chest is symmetric without chest wall deformities. Left chest wall Port-A-Cath site is healing well. It is unremarkable. Abdomen Non-tender, non-distended, no masses or ascites. Good bowel sounds noted in all quads. No guarding or rebound tenderness. No pulsatile masses. Back/Spine Non-tender to palpation. Extremities No visible deformities, no cyanosis, clubbing or edema. Musculoskeletal No tenderness or swelling, normal range of motion without obvious weakness. Integumentary No rashes or lesions. Neurologic No sensory or motor deficits, normal cerebellar function, normal gait. Psychiatric Alert and oriented times three. Coherent speech. Verbalizes understanding of our discussions today. Laboratory: Impression: 1. 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 By clinical evaluation his disease is stage IV (T1b, N2, M1) with PET/CT evidence of bilateral inguinal, iliac, retroperitoneal, and retrocrural lymphadenopathy as well as a small metastatic nodule at the penile root. There is additional FDG avid left cervical level 3 lymph node felt to be indeterminate. 2. He underwent partial penectomy on 08/11/2019. 3. He has required prolonged antibiotic therapy for postoperative lymphedema/scrotal swelling. His other medical illnesses include: 4. Hypertension. 5. Hyperlipidemia. 6. GERD. 7. Benign prostatic hypertrophy. The surgical/pathology results and the PET/CT findings were reviewed with the patient and his per Dr Lemons. He discussed the clinical implications. He has advanced penile cancer, and he has been recommended to initially undergo neoadjuvant chemotherapy. The standard regimen for this is a combination of paclitaxel, ifosfamide, and cisplatin given daily for 3 days with cycles repeated every 3 to 4 weeks for a total of 4 cycles. The plan will be to restage with PET/CT after [address] Lemons has requested a next generation sequencing on his tumor, as he will almost certainly require transitioning to second line treatment somewhere down the line. Mr Simon had Power port placement by Dr. Li on 11/24/2019. He tolerated that well. Mr. Ham presented last week to start his first cycle of Taxol/ifosfamide/cisplatin but had not taking his premed steroids correctly and was rescheduled for today. I did verify that he did take 20 mg of dexamethasone 6 and 12 hours prior to his appointment today. Plan: 1. Proceed with cycle 1 Taxol/ifosfamide/cisplatin. 2. Aggressive antiemetics due to high risk regimen. He will have Compazine and lorazepam as needed at home. We did discuss that he could use lorazepam to help him sleep with the steroids keep him awake. 3. Labs from 11/29/2019 were reviewed in detail and discussed with Mr. Simon and a copy was given to him. WBC 10.3, hemoglobin 11.3, platelets 250,000 ANC was 9550. Potassium 3.9 creatinine 0.9 LFTs were normal. It was noted that his glucose at that time was 289. 4. He will have weekly interim counts via his port with port flushes. 5. We will plan to see him back in 3 weeks with CBC CMP and plan for cycle 2 chemotherapy. I have asked for a day 8 follow-up as well. 6. The patient was informed of chemotherapy plan and specific drugs were discussed. We also discussed how chemotherapy works and identified common side effects including alopecia; myelosuppression-including neutropenia, anemia, thrombocytopenia; peripheral neuropathy; fatigue; nausea; diarrhea; constipation; bleeding or bruising; skin changes; mouth sores; drug hypersensitivity/allergic reactions or anaphylaxis and extravasation. They have also been informed how to contact the clinic with side effects or symptoms, including but not limited to fever greater than 100.4???, chills, sore throat, bleeding or bruising that is not explained or mouth sores, cough, nasal discharge, diarrhea, constipation, nausea and/or vomiting not relieved with medications on hand at home, as well as any other concern or question they may have. Our hours are 8:00 a.m. to 4:30 p.m. on Wednesday through and 8-12:00 on Wednesday. However, someone is computer system validation specialist 24 hours per day and they have been advised to contact the [facility] at if it is after hours. We have also discussed potential long-term side effects of chemotherapy including secondary cancers, infertility, pulmonary complications, cardiac complications, and again peripheral neuropathy. We have discussed that they certainly need to let us know before taking any antioxidants or herbal or further dietary supplements, as we are unsure of how these agents react with chemotherapy and we request that they avoid these products for now. They were informed that it is okay to take multivitamins at normal doses. They verbally state that they understand to take all medications as directed by their healthcare provider unless otherwise indicated. They also verbalized understanding to leave the pressure dressing on the intravenous administration site for at least two hours after treatment. Instructions for oral care with baking soda and salt water rinses as well as a guide for use of [id number] medication were provided with the treatment plan. They have been given a written patient treatment plan, of which a copy is in the chart, as well as specific drug information. They have no questions and verbalized understanding and are willing to proceed with chemotherapy at this time. The majority of this visit (greater than 30 minutes) was spent in face to face communication with this patient in regards to the plan of care, side effect identification and management. Signed By: Kathia Sharp-, [facility] Henry Lemons MD <<Signature on File>>
[2019-12-04] MEDS: FUROsemide 10 mg/mL SDV 2mL 20 MG IV (16:00)
[2019-12-04] MEDS: sodium chlor 0.9% + KCl 20 mEq 20 MEQ/1,000 ML BAG 500 MEQ IV (16:00)
[2019-12-05] MEDS: acetaminophen 325 mg Tablet 650 MG PO (10:05)
[2019-12-05] MEDS: loperamide 2 mg Capsule 4 MG PO (13:20)
[2019-12-05] MEDS: FUROsemide 10 mg/mL SDV 2mL 20 MG IV (13:35)
[2019-12-05] MEDS: sodium chlor 0.9% + KCl 20 mEq 20 MEQ/1,000 ML BAG 500 MEQ IV (13:37)
[2019-12-06] MEDS: acetaminophen 325 mg Tablet 650 MG PO (09:30)
[2019-12-06] MEDS: FUROsemide 10 mg/mL SDV 2mL 20 MG IV (13:05)
[2019-12-06] MEDS: sodium chlor 0.9% + KCl 20 mEq 20 MEQ/1,000 ML BAG 500 MEQ IV (13:07)
[2019-12-13 12:38] LABS: Eosinophils % 3.1 %; Hematocrit 32.9 % (42.0-52.0); Hemoglobin 10.3 g/dL (11.7-16.6); Lymphocytes # 0.6 10^3/uL (0.8-4.8); Lymphocytes % 60.4 %; Mean Corpuscular HGB Conc 31.3 g/dL (30.0-36.0); Mean Corpuscular Hemoglobin 26.6 pg (28.0-34.0); Mean Platelet Volume 9.1 fL (7.4-10.4); Monocytes # 0.1 10^3/uL (0.2-0.9); Monocytes % 13.5 %; Nucleated Red Blood Cells % 0 %; Platelet Count 209 10^3/cmm (130-400); Red Blood Count 3.87 10^6/uL (4.1-5.3); Red Cell Distribution Width 13.4 % (12.1-15.1)
[2019-12-13 12:50] LABS: Alanine Aminotransferase 25 U/L (0-41); Albumin Level 3.9 g/dL (3.5-5.2); Alkaline Phosphatase 90 IU/L (40-130); Anion Gap 12.7 (5-19); Aspartate Amino Transferase 27 U/L (0-40); Blood Urea Nitrogen 11 mg/dL (8-23); Calcium 8.2 mg/dL (8.5-10.5); Carbon Dioxide 25 mmol/L (22-29); Chloride 99 mmol/L (98-107); Globulin 2.8 g/dL (1.3-4.6); Glucose 193 mg/dL (65-115); Osmolality Calculated 283 mOsm/kg (285-295); Sodium 134 mmol/L (136-145); Total Bilirubin 0.2 mg/dL (0.15-1.2); Total Protein 6.7 g/dL (6.6-8.7)
[2019-12-13 12:54] LABS: Potassium 2.7 mmol/L (3.5-5.1)
[2019-12-13] MEDS: potassium chloride 20 MEQ in sodium chloride 0.9% 500 ML 250 MEQ IV (14:08)
--- NOTE | 2019-12-13 23:54 | ONC FU_ITS ---
[facility] Patient Note Patient: Aiden Simon Unit #: [id number]: 1955 Dictated By: Kathia SharpDate of Visit: Dec 13, 2019 Onc MED Follow-Up/Prog Note Chief Complaint: Penile cancer. 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 By clinical evaluation his disease is stage IV (T1b, N2, M1). He has been in good general health. He had presented to Dr. Gray in July 2019 with a 6-month history of worsening skin changes in head of the penis. His exam showed invasive appearing lesions on the glans penis which were grossly suspicious for squamous cell carcinoma. 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 He then underwent partial penectomy on 08/11/2019. 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 It measured 4.0 x 3.0 cm. The tumor was 4 cm from the skin margin. It was noted to invade into the lamina propria for a depth of 10 mm. There was vascular invasion identified. There was no invasion in the corpus cavernosum, corpus spongiosum, or Appiah's fascia. Pathologic staging was T1b. Following the surgery he had complications with scrotal swelling and erythema, requiring prolonged antibiotic therapy. His CT abdomen/pelvis on 09/28/2019 showed slightly enlarged bilateral inguinal lymph nodes, right greater than left, with the largest node measuring 2.7 x 1.4 cm. There was mild diffuse fatty infiltration of the liver. There was evidence of bilateral hydroceles with diffuse scrotal skin thickening. He was then referred to Dr. Tk Yao at the [facility]. His staging PET/CT on 11/01/2019 showed multiple retroperitoneal, bilateral iliac, bilateral inguinal, and right retrocrural FDG avid enlarged lymph nodes with maximum SUV 23. Focal FDG avid soft tissue nodule at the penile root had maximum SUV 23.6. This was all consistent with metastatic involvement. A left level 3 cervical lymph node was FDG avid with maximum SUV 8.4, felt to be nonspecific. Additional findings included mildly enlarged calcified and noncalcified mediastinal and bilateral hilar lymph nodes without associated FDG activity, felt to be likely reactive. Given the PET/CT findings, he is being seen here now for neoadjuvant chemotherapy. He had left subclavian PowerPort placed by Dr. Li on 11/24/2019 Mr. Simon is here today for followup after starting his first cycle of Taxol/ifosfamide/cisplatin on 12/04/2019. He states overall he feels really good. He states that he tolerated the first round well. He states only taken 2 nausea pills and that was for mild to moderate nausea. He denies any emesis. He states that he tires pretty easily but if he rests and takes a nap in the afternoon he recovers well. He is able to do all of his chores without assistance although it does take him a little bit longer than his normal. But he is able to do things that he wants to be doing within reason. He states that he has had diarrhea that started after the chemotherapy that was persistent for 5 to 6 days. He states it is of brown liquid. He states he stopped for couple days and then a high now has resumed. He has had up to 3 loose stools already today. He has not been taking any Imodium or antidiarrheal [id number]. It is noted that he has been on antibiotics for scrotal swelling which is responding to the antibiotics. He will have C. difficile testing today if he can produce a stool sample. He denies any neuropathy. He has had no mouth sores sore throat or difficulty swallowing. He denies any palpitations. He denies any chest pain. He states that his urinary patterns are normal for him. He denies any lower extremity edema at this point. He states the scrotal swelling is much better. He states he is eating good. He has been try to drink fluids but has had a lot of diarrhea as well. His ECOG is 1. Past Medical History: Benign prostatic hypertrophy Gastroesophageal reflux disease Hyperlipidemia Hypertension Type II diabetes Past Surgical History: Appendectomy [place] subclavian [place]. [place] [place] in 2020 Allergies: No Known Allergies. Medications: amLODIPine Besylate 1 Tablet (of 10 mg) Oral daily Furosemide 1 Tablet (of 20 mg) Oral daily Olmesartan Medoxomil 1 Tablet (of 40 mg) Oral daily Pravastatin Sodium 1 Tablet (of 40 mg) Oral daily Sucralfate 1 Tablet (of 1 g) Oral b.i.d. Tamsulosin HCl 1 Capsule (of 0.4 mg) Oral daily Family History: Mr. Simon's mother at age 62. Mr. Simon's father at age 70: heart attack. Mr. Simon has 1 sister who is . Father with heart attack at age 70. Mother at 69 and a sister at age 62 with cancer, type unknown to the patient. Four brothers are in good health. Social History: Mr. Simon is . He is a light tobacco smoker. He has no history of drinking. He has indicated exposure to the following products: cigarettes and chewing tobacco. He is retired. He restores [employer] for a hobby. He is a non-smoker, but he chews tobacco 3 times a day. He drinks of beer once a week. Review Of Symptoms: Constitutional Denies fevers, chills, night sweats, excessive fatigue or weight loss. Has fatigue but recovers well with rest. Allergic/Immunologic No reactions. Eyes Denies significant visual changes. No diplopia. No amaurosis. ENMT Denies changes in hearing, sore throat, mouth sores, difficulty or changes in swallowing ability, and/or sinus drainage. Hematologic/Lymphatic Denies easy bruising or bleeding. The patient denies any tender or palpable lymph nodes. Respiratory Denies dyspnea on exertion, chest pain, cough or hemoptysis. Denies orthopnea. Cardiovascular Denies anginal chest pain, palpitations or orthopnea. Gastrointestinal Denies persistent or uncontrolled nausea, vomiting, GI bleeding, or constipation. Denies change in bowel habits and/or stool color, no heartburn or early satiety. Having diarrhea-see above. Genitourinary (M) Denies hematuria, dysuria, increased frequency, urgency, hesitancy or incontinence. Musculoskeletal Denies joint pain, swelling or redness. No decreased range of motion. Integumentary Denies chronic rashes, inflammation, ulcerations or skin changes. Neurologic Denies headache, blurred vision, and no areas of focal weakness or numbness. Normal gait. No sensory problems. Psychiatric Denies insomnia, depression, shanelle or mood swings. Vital Signs: Performed on Dec 13, 2019 13:20 Height - 72.00 in Weight - 196.1 lbs (HIGH) BSA - 2.11 sq.m BMI - 26.60 Temperature - 98.4 F Pulse - 81 /min Respiration - 18 /min BP - 111/61 mm(hg) O2 Sat - 95 % (LOW) Pain - 0,1 - No physically strenuous activity, but ambulatory and able to carry out light or sedentary work (e.g. office work, light house work). (ECOG) Physical Examination: Constitutional Alert, oriented, no acute distress. Skin pink, warm and dry. Head Normocephalic; atraumatic. Eyes Conjunctivae and sclerae are clear and without icterus. Pupils are reactive and equal. Neck Supple without masses or thyromegaly. No jugular venous distension. Hematologic/Lymphatic No petechiae or purpura. No tender or palpable lymph nodes in the cervical or supraclavicular areas. Respiratory Lungs are clear to auscultation without rhonchi or wheezing. Cardiovascular Regular rate and rhythm of heart without murmurs,clicks, gallops or rubs. Chest Chest is symmetric without chest wall deformities. Left chest wall Port-A-Cath site is healing well. It is unremarkable. Abdomen Non-tender, non-distended, no masses or ascites. Good bowel sounds noted in all quads. No guarding or rebound tenderness. No pulsatile masses. Back/Spine Non-tender to palpation. Extremities No visible deformities, no cyanosis, clubbing or edema. Musculoskeletal No tenderness or swelling, normal range of motion without obvious weakness. Integumentary No rashes or lesions. Neurologic No sensory or motor deficits, normal cerebellar function, normal gait. Psychiatric Alert and oriented times three. Coherent speech. Verbalizes understanding of our discussions today. Laboratory:Test performed on Dec 13, 2019 12:21 Magnesium 2.0 mg/dL Sodium 134 mmol/L Potassium 2.7 mmol/L Chloride 99 mmol/L CO2 25 mmol/L Anion Gap 12.7 BUN 11 mg/dL Creatinine 0.9 mg/dL Cr Clearance (Est) 103.3100 mL/min eGFR 85.0 mL/min Glucose 193 mg/dL Osmolality - Calculated 283 mOsm/kg Calcium 8.2 mg/dL Protein, Total 6.7 g/dL Albumin 3.9 g/dL Globulin 2.8 g/dL Bilirubin, Total 0.2 mg/dL ALT (SGPT) 25 U/L AST (SGOT) 27 U/L Alkaline Phosphatase 90 IU/L WBC 1.0 10 3/uL RBC 3.87 10 6/uL HGB 10.3 g/dL HCT 32.9 % MCV 85.0 fL MCH 26.6 pg MCHC 31.3 g/dL RDW 13.4 % Platelet Count 209 10 3/cmm MPV 9.1 fL Neutrophils 0.20 10 3/uL Lymphocytes 0.6 10 3/uL Monocytes 0.1 10 3/uL Eosinophils 0.0 10 3/uL Basophils 0.0 10 3/uL Neutrophil % 21.0 % Lymphocyte % 60.4 % Monocyte % 13.5 % Eosinophil % 3.1 % Basophils % 1.0 % NRBC % 0 % Impression: 1. 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 By clinical evaluation his disease is stage IV (T1b, N2, M1) with PET/CT evidence of bilateral inguinal, iliac, retroperitoneal, and retrocrural lymphadenopathy as well as a small metastatic nodule at the penile root. There is additional FDG avid left cervical level 3 lymph node felt to be indeterminate. 2. He underwent partial penectomy on 08/11/2019. 3. He has required prolonged antibiotic therapy for postoperative lymphedema/scrotal swelling. His other medical illnesses include: 4. Hypertension. 5. Hyperlipidemia. 6. GERD. 7. Benign prostatic hypertrophy. The surgical/pathology results and the PET/CT findings were reviewed with the patient and his per Dr Lemons. He discussed the clinical implications. He has advanced penile cancer, and he has been recommended to initially undergo neoadjuvant chemotherapy. The standard regimen for this is a combination of paclitaxel, ifosfamide, and cisplatin given daily for 3 days with cycles repeated every 3 to 4 weeks for a total of 4 cycles. The plan will be to restage with PET/CT after [address] Lemons has requested a next generation sequencing on his tumor, as he will almost certainly require transitioning to second line treatment somewhere down the line. Mr Simon had Power port placement by Dr. Li on 11/24/2019. He tolerated that well. Mr. Ham started his first cycle of Taxol/ifosfamide/cisplatin on 12/04/2019. He has tolerated it well overall. However he is having persistent diarrhea which could be related to the chemotherapy or antibiotic use as he is having to use antibiotics often for scrotal swelling. He has been tested for C. difficile today as well. He has also hypokalemic due to the diarrhea and that will be placed today as well. Plan: 1. Proceed with cycle 1 Taxol/ifosfamide/cisplatin-this is day 10. 2. Aggressive antiemetics due to high risk regimen. He will have Compazine and lorazepam as needed at home. We did discuss that he could use lorazepam to help him sleep with the steroids keep him awake. 3. Labs from 12/13/2019 were reviewed in detail and discussed with Mr. Simon and a copy was given to him. WBC 1.0, hemoglobin 10.3, platelets 209,000 ANC is 200. He did not receive growth factors. Potassium 2.7 magnesium is pending BUN is 11 creatinine 0.9 albumin 3.9 his LFTs are normal. 4. He may have Lomotil here in the clinic today for continuous diarrhea. 5. He will have potassium replacement with 20 mEq IV today and then start on oral 20 mEq daily until we tell him to stop. 6. We will request C. difficile on stool sample if he is able to produce that while he is here today otherwise he can bring it in. 7. He will be supported with Neupogen 480 mcg daily for 3 days for an ANC of 200. We will recheck his blood counts and potassium on Wednesday to determine if he needs further interventions. I have requested a prior authorization for Neulasta with cycle 2. His day 1 ANC was 9550 and on day 10 it is 200. He has extensive disease and is on a high risk regimen. 8. He will need to continue his antibiotic as he is neutropenic with an ANC of 200. Thus far he is afebrile and asymptomatic. We discussed that this could be making his diarrhea worse the diarrhea could also be caused from his chemotherapy as well of C. difficile if he is positive. 9. He will return in 1 week for CBC, CMP with port maintenance. 10. We will plan to see him back in 2 weeks with CBC CMP, port maintenance and consideration for cycle 2 cisplatin ifosfamide paclitaxel. We do plan to request Neulasta support with that cycle given his severe drop in his neutrophil count. His day 1 ANC was 9550 and today it was 200. He has extensive disease and is on a high risk regimen. 11. Mr. Ham was instructed to contact us in the interim should questions or problems arise. 12. His magnesium was reported after his visit and was normal at 2.0. Signed By: Kathia Sharp-, [facility] Henry Lemons MD <<Signature on File>>
[2019-12-15 09:04] LABS: Basophils % 1.2 %; Eosinophils # 0.1 10^3/uL (0.0-0.8); Eosinophils % 3.5 %; Hematocrit 32.6 % (42.0-52.0); Hemoglobin 10.2 g/dL (11.7-16.6); Lymphocytes # 0.8 10^3/uL (0.8-4.8); Lymphocytes % 47.4 %; Mean Corpuscular HGB Conc 31.3 g/dL (30.0-36.0); Mean Corpuscular Hemoglobin 26.8 pg (28.0-34.0); Mean Corpuscular Volume 85.8 fL (80-94); Mean Platelet Volume 8.7 fL (7.4-10.4); Monocytes # 0.6 10^3/uL (0.2-0.9); Monocytes % 33.5 %; Neutrophils % 13.8 %; Nucleated Red Blood Cells % 0 %; Platelet Count 208 10^3/cmm (130-400); Red Cell Distribution Width 13.6 % (12.1-15.1); White Blood Count 1.7 10^3/uL (4.0-10.0)
[2019-12-15 09:32] LABS: Anion Gap 12.2 (5-19); Blood Urea Nitrogen 5 mg/dL (8-23); Calcium 8.4 mg/dL (8.5-10.5); Carbon Dioxide 26 mmol/L (22-29); Chloride 104 mmol/L (98-107); Glomerular Filtration Rate 75.2 mL/min (90-130); Glucose 137 mg/dL (65-115); Osmolality Calculated 287 mOsm/kg (285-295); Potassium 3.2 mmol/L (3.5-5.1); Sodium 139 mmol/L (136-145)
[2019-12-15 10:15] LABS: Neutrophils # 0.24 10^3/uL (1.8-7.7)
[2019-12-15 10:16] LABS: Slide Review Slide Review Perform
== END 2019-12-16 23:59 | disposition home or self-care (01) ==
LOC: ONCMED 05:39
PROVIDERS: Nurse Practitioner; PCP Nurse Practitioner; Visit Provider Internal Medicine Medical Oncology
DX: Z51.11 Encounter for antineoplastic chemotherapy (principal); C60.1 Malignant neoplasm of glans penis; C77.8 Secondary and unspecified malignant neoplasm of lymph nodes of multiple regions; D70.1 Agranulocytosis secondary to cancer chemotherapy; T45.1X5A Adverse effect of antineoplastic and immunosuppressive drugs, initial encounter; K76.0 Fatty (change of) liver, not elsewhere classified; R19.7 Diarrhea, unspecified; N50.89 Other specified disorders of the male genital organs; N40.0 Benign prostatic hyperplasia without lower urinary tract symptoms; K21.9 Gastro-esophageal reflux disease without esophagitis; E78.5 Hyperlipidemia, unspecified; I10 Essential (primary) hypertension; E11.9 Type 2 diabetes mellitus without complications; F17.220 Nicotine dependence, chewing tobacco, uncomplicated; Z95.828 Presence of other vascular implants and grafts; Z86.19 Personal history of other infectious and parasitic diseases; Z90.79 Acquired absence of other genital organ(s)
CPT/HCPCS: 36591; 80048; 80053; 83735; 85025; 87493; 96365; 96366; 96367; 96372; 96375; 96413; 96415; 96417; 99214; J1100; J1200; J1442; J1453; J1940; J2405; J2469; J3475; J3480; J3490; J7030; J7040; J7050; J9060; J9208; J9209; J9267

== ENCOUNTER 2019-12-16 09:04 | Outpatient (CLI) | payer OTHER, SELFPAY ==
[2019-12-16 09:41] VITALS: BP 153/81; PULSE 82; RESP 18; TEMP 36.9; O2SAT 98
== END 2019-12-16 09:05 | disposition home or self-care (01) ==
LOC: OPS 09:06
PROVIDERS: PCP Nurse Practitioner; Visit Provider Internal Medicine Medical Oncology
DX: C60.1 Malignant neoplasm of glans penis (principal)
CPT/HCPCS: 96372; J1442

== ENCOUNTER 2020-01-15 05:12 | Outpatient (RCR) | payer OTHER, SELFPAY ==
[2019-12-17 09:28] VITALS: BMI 27.8
[2019-12-18 10:21] LABS: Hematocrit 33.2 % (42.0-52.0); Hemoglobin 10.3 g/dL (11.7-16.6); Mean Corpuscular Hemoglobin 26.5 pg (28.0-34.0); Mean Corpuscular Volume 85.6 fL (80-94); Mean Platelet Volume 8.5 fL (7.4-10.4); Platelet Count 255 10^3/cmm (130-400); Red Blood Count 3.88 10^6/uL (4.1-5.3); Red Cell Distribution Width 14.6 % (12.1-15.1)
[2019-12-18 10:41] LABS: Alanine Aminotransferase 18 U/L (0-41); Albumin Level 3.7 g/dL (3.5-5.2); Alkaline Phosphatase 172 IU/L (40-130); Anion Gap 12.5 (5-19); Aspartate Amino Transferase 28 U/L (0-40); Blood Urea Nitrogen 8 mg/dL (8-23); Calcium 8.4 mg/dL (8.5-10.5); Carbon Dioxide 27 mmol/L (22-29); Chloride 102 mmol/L (98-107); Globulin 2.8 g/dL (1.3-4.6); Glomerular Filtration Rate 67.4 mL/min (90-130); Glucose 189 mg/dL (65-115); Osmolality Calculated 289 mOsm/kg (285-295); Potassium 3.5 mmol/L (3.5-5.1); Sodium 138 mmol/L (136-145); Total Bilirubin 0.2 mg/dL (0.15-1.2); Total Protein 6.5 g/dL (6.6-8.7)
[2019-12-18 11:04] LABS: Slide Review Slide Review Perform
[2019-12-18 11:07] LABS: Total Cells Counted 100 (0-100); White Blood Count 30.6 10^3/uL (4.0-10.0)
[2019-12-18 11:08] LABS: Band Neutrophils Absolute 1.8 10^3/cmm (0.0-1.2); Eosinophils 0 %; Lymphocytes 9 %; Monocytes Absolute 1.2 10^3/cmm (0.1-0.6); Segmented Neutrophils 75 %
[2019-12-18 11:09] LABS: Absolute Neutrophil 24.8 10^3/cmm (1.4-6.5); Platelet Estimate Normal (Normal)
[2019-12-18 11:10] LABS: Smudge Cells Trace
[2019-12-25] MEDS: sodium chloride 0.9% 250 ML 75 ML IV (08:26)
[2019-12-25 08:39] LABS: Basophils % 0.3 %; Eosinophils % 0.3 %; Hematocrit 35.1 % (42.0-52.0); Hemoglobin 10.6 g/dL (11.7-16.6); Lymphocytes # 1.2 10^3/uL (0.8-4.8); Lymphocytes % 16.4 %; Mean Corpuscular HGB Conc 30.2 g/dL (30.0-36.0); Mean Corpuscular Hemoglobin 26.7 pg (28.0-34.0); Mean Corpuscular Volume 88.4 fL (80-94); Mean Platelet Volume 8.7 fL (7.4-10.4); Monocytes # 0.6 10^3/uL (0.2-0.9); Monocytes % 8.5 %; Neutrophils # 5.26 10^3/uL (1.8-7.7); Neutrophils % 73.7 %; Nucleated Red Blood Cells % 0 %; Platelet Count 399 10^3/cmm (130-400); Red Blood Count 3.97 10^6/uL (4.1-5.3); Red Cell Distribution Width 15.9 % (12.1-15.1); White Blood Count 7.1 10^3/uL (4.0-10.0)
[2019-12-25 09:12] LABS: Alanine Aminotransferase 20 U/L (0-41); Albumin Level 3.8 g/dL (3.5-5.2); Alkaline Phosphatase 90 IU/L (40-130); Anion Gap 11.4 (5-19); Aspartate Amino Transferase 22 U/L (0-40); Blood Urea Nitrogen 12 mg/dL (8-23); Calcium 8.9 mg/dL (8.5-10.5); Carbon Dioxide 25 mmol/L (22-29); Chloride 104 mmol/L (98-107); Creatinine Clr Calc Pharmacy 83.3876; Globulin 3.1 g/dL (1.3-4.6); Glomerular Filtration Rate 75.2 mL/min (90-130); Potassium 4.4 mmol/L (3.5-5.1); Sodium 136 mmol/L (136-145); Total Bilirubin 0.2 mg/dL (0.15-1.2); Total Protein 6.9 g/dL (6.6-8.7)
[2019-12-25 09:32] LABS: Glucose 150 mg/dL (65-115); Osmolality Calculated 285 mOsm/kg (285-295)
[2019-12-25] MEDS: acetaminophen 325 mg Tablet 650 MG PO (10:23)
--- NOTE | 2019-12-25 10:35 | ONC FU_ITS ---
Dr. Lemons Patient Follow-Up Note Patient: Aiden Simon Unit #: [id number]: 1955 Dicatated By: Henry Lemons M.D.Date of Visit:Dec 25, 2019 Onc Med Follow-up/Prog Note Chief Complaint: Penile cancer. 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 By clinical evaluation his disease is stage IV (T1b, N2, M1). He has been in good general health. He had presented to Dr. Gray in July 2019 with a 6-month history of worsening skin changes in head of the penis. His exam showed invasive appearing lesions on the glans penis which were grossly suspicious for squamous cell carcinoma. 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 He then underwent partial penectomy on 08/11/2019. 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 It measured 4.0 x 3.0 cm. The tumor was 4 cm from the skin margin. It was noted to invade into the lamina propria for a depth of 10 mm. There was vascular invasion identified. There was no invasion in the corpus cavernosum, corpus spongiosum, or Appiah's fascia. Pathologic staging was T1b. Following the surgery he had complications with scrotal swelling and erythema, requiring prolonged antibiotic therapy. His CT abdomen/pelvis on 09/28/2019 showed slightly enlarged bilateral inguinal lymph nodes, right greater than left, with the largest node measuring 2.7 x 1.4 cm. There was mild diffuse fatty infiltration of the liver. There was evidence of bilateral hydroceles with diffuse scrotal skin thickening. He was then referred to Dr. Tk Yao at the [facility]. His staging PET/CT on 11/01/2019 showed multiple retroperitoneal, bilateral iliac, bilateral inguinal, and right retrocrural FDG avid enlarged lymph nodes with maximum SUV 23. Focal FDG avid soft tissue nodule at the penile root had maximum SUV 23.6. This was all consistent with metastatic involvement. A left level 3 cervical lymph node was FDG avid with maximum SUV 8.4, felt to be nonspecific. Additional findings included mildly enlarged calcified and noncalcified mediastinal and bilateral hilar lymph nodes without associated FDG activity, felt to be likely reactive. Given the PET/CT findings, he was recommended to undergo neoadjuvant chemotherapy. His other medical illnesses include hypertension, hyperlipidemia, GERD, and benign prostatic hypertrophy. He has type 2 diabetes, but it has been diet controlled. He is a non-smoker, but he does chew tobacco. INTERIM HISTORY: On 12/04/2019 he began cycle 1 of neoadjuvant chemotherapy with cisplatin, ifosfamide, and paclitaxel. It was administered over 3 days. He tolerated it without acute toxicity. He is seen now for a scheduled visit. He has been feeling good generally. His energy was down for a few days after treatment, but it is since then been good. He says he has been real active. His ECOG score is 0. He also had some nausea at first, but no vomiting. He had bad diarrhea for 4 days, but that resolved. He was neutropenic at day 8, but that resolved after 3 days of Neupogen. He has good appetite. He has not had fever or night sweats. He had no mouth sores. He has no shortness of breath, cough, or chest pain. He reports no difficulty with bladder function. He has no significant joint or bone pain. He does not complain of headache or dizziness. He developed tingling in his fingers after the treatment. It has since then improved, but not completely resolved. Medications: amLODIPine Besylate 1 Tablet (of 10 mg) Oral daily, Furosemide 1 Tablet (of 20 mg) Oral daily, Olmesartan Medoxomil 1 Tablet (of 40 mg) Oral daily, Pravastatin Sodium 1 Tablet (of 40 mg) Oral daily, Sucralfate 1 Tablet (of 1 g) Oral b.i.d., Tamsulosin HCl 1 Capsule (of 0.4 mg) Oral daily Allergies: No Known Allergies. Review of Systems: Constitutional - His energy was down for a few days after treatment, but otherwise has been good. He has been very active. Appetite is good. He has not had fever or night sweats. ECOG score is 0, ENMT - No sinus congestion/drainage. No mouth sores. No sore throat or difficulty swallowing, Hematologic/Lymphatic - No abnormal bruising or bleeding, Respiratory - No shortness of breath. No cough. No pleuritic pain or hemoptysis, Cardiovascular - No angina pain. No palpitations, Gastrointestinal - He had some nausea at first, but no vomiting. He sometimes has acid reflux. He had bad diarrhea which lasted about 4 days, Genitourinary (M) - Bladder function has been okay, Musculoskeletal - No joint or bone pain, Integumentary - He has had hair loss, but no skin eruption, Neurologic - No headache or dizziness. He developed tingling in his fingers after the treatment. It has improved, not completely resolved. No other focal neurologic symptoms, Psychiatric - No anxiety or depression. No insomnia. Vital Signs: Performed on Dec 25, 2019 09:31 Height - 72.00 in Weight - 191.8 lbs (LOW) BSA - 2.09 sq.m BMI - 26.01 Temperature - 97.8 F (LOW) Pulse - 67 /min Respiration - 18 /min BP - 134/78 mm(hg) O2 Sat - 98 % Pain - 0 Physical Examination: Constitutional - He looks good generally, Eyes - Sclerae nonicteric. Conjunctivae clear, ENMT - No lesions noted in the oral cavity, Hematologic/Lymphatic - No cervical, clavicular, or axillary adenopathy, Respiratory - Lungs are clear with good air movement bilaterally, Cardiovascular - Heart rhythm is regular. There is no murmur, gallop, or rub noted, Abdomen - Soft. Liver and spleen are not enlarged. There is no abdominal mass or ascites noted. There are still palpable inguinal lymph nodes bilaterally, Genitalia/Groin/Buttock (M) - There is persistent scrotal swelling with mild erythema. The nodule palpable superior to the origin of the penile shaft appears to have resolved, Extremities - No edema, Integumentary - There is an irregular skin lesion on the upper chest wall which is appears consistent with basal cell carcinoma, Neurologic - No focal neurologic deficits noted. Lab/Imaging: Test performed on Dec 25, 2019 08:08 Sodium 136 mmol/L Potassium 4.4 mmol/L Chloride 104 mmol/L CO2 25 mmol/L Anion Gap 11.4 BUN 12 mg/dL Creatinine 1.0 mg/dL Cr Clearance (Est) 92.9800 mL/min eGFR 75.2 mL/min Glucose 150 mg/dL Osmolality - Calculated 285 mOsm/kg Calcium 8.9 mg/dL Protein, Total 6.9 g/dL Albumin 3.8 g/dL Globulin 3.1 g/dL Bilirubin, Total 0.2 mg/dL ALT (SGPT) 20 U/L AST (SGOT) 22 U/L Alkaline Phosphatase 90 IU/L WBC 7.1 10 3/uL RBC 3.97 10 6/uL HGB 10.6 g/dL HCT 35.1 % MCV 88.4 fL MCH 26.7 pg MCHC 30.2 g/dL RDW 15.9 % Platelet Count 399 10 3/cmm MPV 8.7 fL Neutrophils 5.26 10 3/uL Lymphocytes 1.2 10 3/uL Monocytes 0.6 10 3/uL Eosinophils 0.0 10 3/uL Basophils 0.0 10 3/uL Neutrophil % 73.7 % Lymphocyte % 16.4 % Monocyte % 8.5 % Eosinophil % 0.3 % Basophils % 0.3 % NRBC % 0 % Impression: 1. 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 By clinical evaluation his disease is stage IV (T1b, N2, M1) with PET/CT evidence of bilateral inguinal, iliac, retroperitoneal, and retrocrural lymphadenopathy as well as a small metastatic nodule at the penile root. There is additional FDG avid left cervical level 3 lymph node felt to be indeterminate. 2. He underwent partial penectomy on 08/11/2019. 3. He has required prolonged antibiotic therapy for postoperative lymphedema/scrotal swelling. His other medical illnesses include: 4. Hypertension. 5. Hyperlipidemia. 6. GERD. 7. Benign prostatic hypertrophy. 8. Type II diabetes, diet controlled. He began cycle 1 of neoadjuvant chemotherapy with cisplatin, ifosfamide, and paclitaxel on 12/04/2019. He was severely neutropenic at day 8, but he recovered uneventfully with Neupogen. Other side effects included mild nausea, diarrhea for 4 days, and mild neuropathy. Overall, he tolerated treatment well. He does have additional finding of a suspicious skin lesion in his upper chest wall. Plan: He will proceed with cycle 2 of cisplatin, ifosfamide, and paclitaxel. I will reduce the paclitaxel dosage by 20% because of the neuropathy. I will add Neulasta prophylactically. Blood counts will be monitored weekly. He returns in 3 weeks. In the meantime, I will talk to Dr. Li about removing the chest wall lesion. Signed By: Henry Lemons M.D. <<Signature on File>>
[2019-12-25] MEDS: FUROsemide 10 mg/mL SDV 2mL 20 MG IV (16:50)
[2019-12-25] MEDS: sodium chlor 0.9% + KCl 20 mEq 20 MEQ/1,000 ML BAG 500 MEQ IV (16:52)
[2019-12-26] MEDS: acetaminophen 325 mg Tablet 650 MG PO (10:29)
[2019-12-26] MEDS: FUROsemide 10 mg/mL SDV 2mL 20 MG IV (13:23)
[2019-12-26] MEDS: sodium chlor 0.9% + KCl 20 mEq 20 MEQ/1,000 ML BAG 500 MEQ IV (13:25)
[2019-12-27] MEDS: acetaminophen 325 mg Tablet 650 MG PO (09:50)
[2019-12-27] MEDS: sodium chlor 0.9% + KCl 20 mEq 20 MEQ/1,000 ML BAG 500 MEQ IV (12:58)
[2019-12-27] MEDS: FUROsemide 10 mg/mL SDV 2mL 20 MG IV (13:57)
[2019-12-27] MEDS: pegfilgrastim 6 mg/0.6 mL Kit (onpro) SUBCUT (14:00)
[2020-01-01 13:11] LABS: Basophils # 0.1 10^3/uL (0.0-0.1); Eosinophils % 0.2 %; Hematocrit 31.2 % (42.0-52.0); Lymphocytes # 0.8 10^3/uL (0.8-4.8); Lymphocytes % 13.2 %; Mean Corpuscular HGB Conc 32.1 g/dL (30.0-36.0); Mean Corpuscular Volume 84.1 fL (80-94); Mean Platelet Volume 8.9 fL (7.4-10.4); Monocytes # 0.6 10^3/uL (0.2-0.9); Neutrophils # 3.98 10^3/uL (1.8-7.7); Neutrophils % 67.5 %; Nucleated Red Blood Cells % 0 %; Platelet Count 246 10^3/cmm (130-400); Red Blood Count 3.71 10^6/uL (4.1-5.3); Red Cell Distribution Width 15.6 % (12.1-15.1); White Blood Count 5.9 10^3/uL (4.0-10.0)
[2020-01-01 13:40] LABS: Slide Review Slide Review Perform
[2020-01-08 13:04] LABS: Basophils % 0.3 %; Eosinophils # 0.1 10^3/uL (0.0-0.8); Eosinophils % 0.4 %; Hematocrit 34.7 % (42.0-52.0); Hemoglobin 10.9 g/dL (11.7-16.6); Lymphocytes # 1.5 10^3/uL (0.8-4.8); Lymphocytes % 12.5 %; Mean Corpuscular HGB Conc 31.4 g/dL (30.0-36.0); Mean Corpuscular Hemoglobin 27.4 pg (28.0-34.0); Mean Corpuscular Volume 87.2 fL (80-94); Monocytes # 0.8 10^3/uL (0.2-0.9); Monocytes % 6.5 %; Neutrophils # 9.41 10^3/uL (1.8-7.7); Neutrophils % 78.7 %; Nucleated Red Blood Cells % 0 %; Platelet Count 69 10^3/cmm (130-400); Red Blood Count 3.98 10^6/uL (4.1-5.3); Red Cell Distribution Width 17.8 % (12.1-15.1)
[2020-01-15] MEDS: sodium chloride 0.9% 250 ML 75 ML IV ×2 (08:37)
[2020-01-15 08:42] LABS: Basophils % 0.1 %; Hematocrit 36.9 % (42.0-52.0); Hemoglobin 11.7 g/dL (11.7-16.6); Lymphocytes # 0.3 10^3/uL (0.8-4.8); Lymphocytes % 2.2 %; Mean Corpuscular HGB Conc 31.7 g/dL (30.0-36.0); Mean Corpuscular Hemoglobin 27.2 pg (28.0-34.0); Mean Corpuscular Volume 85.8 fL (80-94); Mean Platelet Volume 8.6 fL (7.4-10.4); Monocytes % 0.2 %; Neutrophils # 14.16 10^3/uL (1.8-7.7); Neutrophils % 96.8 %; Nucleated Red Blood Cells % 0 %; Platelet Count 363 10^3/cmm (130-400); Red Cell Distribution Width 18.5 % (12.1-15.1); White Blood Count 14.6 10^3/uL (4.0-10.0)
[2020-01-15 09:01] LABS: Alanine Aminotransferase 20 U/L (0-41); Albumin Level 4.6 g/dL (3.5-5.2); Alkaline Phosphatase 115 IU/L (40-130); Aspartate Amino Transferase 15 U/L (0-40); Blood Urea Nitrogen 18 mg/dL (8-23); Carbon Dioxide 21 mmol/L (22-29); Chloride 99 mmol/L (98-107); Creatinine Clr Calc Pharmacy 83.3876; Globulin 2.8 g/dL (1.3-4.6); Glomerular Filtration Rate 75.2 mL/min (90-130); Glucose 326 mg/dL (65-115); Osmolality Calculated 293 mOsm/kg (285-295); Sodium 134 mmol/L (136-145); Total Bilirubin 0.3 mg/dL (0.15-1.2); Total Protein 7.4 g/dL (6.6-8.7)
[2020-01-15] MEDS: acetaminophen 325 mg Tablet 650 MG PO (10:20)
[2020-01-15] MEDS: ondansetron 2 mg/ML SDV 2 mL 8 MG IV (10:24)
[2020-01-15] MEDS: famotidine 20 mg/2 mL INJ IVP (10:27)
[2020-01-15] MEDS: diphenhydrAMINE 50 mg/mL SDV 1mL 25 MG IV (10:28)
[2020-01-15] MEDS: FUROsemide 10 mg/mL SDV 2mL 20 MG IV (16:20)
[2020-01-15] MEDS: sodium chlor 0.9% + KCl 20 mEq 20 MEQ/1,000 ML BAG 500 MEQ IV (16:22)
--- NOTE | 2020-01-19 10:17 | ONC FU_ITS ---
Dr. Lemons Patient Follow-Up Note Patient: Aiden Simon Unit #: [id number]: 1955 Dicatated By: Henry Lemons M.D.Date of Visit:Jan 15, 2020 Onc Med Follow-up/Prog Note Chief Complaint: Penile cancer. 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 By clinical evaluation his disease is stage IV (T1b, N2, M1). He has been in good general health. He had presented to Dr. Gray in July 2019 with a 6-month history of worsening skin changes in head of the penis. His exam showed invasive appearing lesions on the glans penis which were grossly suspicious for squamous cell carcinoma. 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 He then underwent partial penectomy on 08/11/2019. 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 It measured 4.0 x 3.0 cm. The tumor was 4 cm from the skin margin. It was noted to invade into the lamina propria for a depth of 10 mm. There was vascular invasion identified. There was no invasion in the corpus cavernosum, corpus spongiosum, or Appiah's fascia. Pathologic staging was T1b. Following the surgery he had complications with scrotal swelling and erythema, requiring prolonged antibiotic therapy. His CT abdomen/pelvis on 09/28/2019 showed slightly enlarged bilateral inguinal lymph nodes, right greater than left, with the largest node measuring 2.7 x 1.4 cm. There was mild diffuse fatty infiltration of the liver. There was evidence of bilateral hydroceles with diffuse scrotal skin thickening. He was then referred to Dr. Tk Yao at the [facility]. His staging PET/CT on 11/01/2019 showed multiple retroperitoneal, bilateral iliac, bilateral inguinal, and right retrocrural FDG avid enlarged lymph nodes with maximum SUV 23. Focal FDG avid soft tissue nodule at the penile root had maximum SUV 23.6. This was all consistent with metastatic involvement. A left level 3 cervical lymph node was FDG avid with maximum SUV 8.4, felt to be nonspecific. Additional findings included mildly enlarged calcified and noncalcified mediastinal and bilateral hilar lymph nodes without associated FDG activity, felt to be likely reactive. Given the PET/CT findings, he was recommended to undergo neoadjuvant chemotherapy. His other medical illnesses include hypertension, hyperlipidemia, GERD, and benign prostatic hypertrophy. He has type 2 diabetes, but it has been diet controlled. He is a non-smoker, but he does chew tobacco. INTERIM HISTORY: On 12/04/2019 he began cycle 1 of neoadjuvant chemotherapy with cisplatin, ifosfamide, and paclitaxel. It was administered over 3 days. He tolerated it without acute toxicity. He had subsequently experienced some fatigue for several days after the treatment and reported having bad diarrhea for 4 days. At age 80 he was neutropenic, but it resolved with Neupogen. He also had some mild neuropathy symptoms. Overall, he tolerated the treatment reasonably well and by clinical evaluation he did appear to be showing some response. He continued with cycle 2 on 12/25/2019 with a dose reduction in the paclitaxel and with addition of Neulasta. He is seen for a scheduled visit. He said he felt rough for 3 days after his 2nd cycle, mainly just weakness/fatigue. He is still working, though. ECOG score is 1. Appetite has been down a little due to altered taste. He has not had fever. He has a little bit of sweating. He has had no mouth sores. He has no shortness of breath, cough, or chest pain. He has not been having nausea, but he sometimes has heartburn. Bowels have been okay. He has had no further diarrhea. Bladder function has been okay. He has no significant joint or bone pain. He has a little tingling in his fingers, but not bad. Medications: amLODIPine Besylate 1 Tablet (of 10 mg) Oral daily, Furosemide 1 Tablet (of 20 mg) Oral daily, Olmesartan Medoxomil 1 Tablet (of 40 mg) Oral daily, Pravastatin Sodium 1 Tablet (of 40 mg) Oral daily, Sucralfate 1 Tablet (of 1 g) Oral b.i.d., Tamsulosin HCl 1 Capsule (of 0.4 mg) Oral daily Allergies: No Known Allergies. Review of Systems: Constitutional - He felt very rough for 3 days after his last treatment, mainly due to weakness/fatigue. His energy since then has been better, and he is working. Appetite has been down a little, mainly due to altered taste sensation. His weight is stable. No fever. He has a little bit of sweating at night. ECOG score is 1, ENMT - No sinus congestion/drainage. No mouth sores. No sore throat or difficulty swallowing, Hematologic/Lymphatic - No abnormal bruising or bleeding, Respiratory - No shortness of breath. No cough. No pleuritic pain or hemoptysis, Cardiovascular - No angina pain. No palpitations, Gastrointestinal - No nausea or vomiting. He sometimes has heartburn. No diarrhea or constipation. No blood in the stool or black stools, Genitourinary (M) - No dysuria or hematuria. He has frequent urination. No urgency or incontinence, Musculoskeletal - No joint or bone pain, Integumentary - No skin rash, Neurologic - No headache. He sometimes has dizziness. He has a little tingling in his fingers, but not bad. No other focal neurologic symptoms, Psychiatric - No anxiety or depression. No insomnia. Vital Signs: Performed on Jan 15, 2020 09:29 Height - 72.00 in Weight - 190.2 lbs (LOW) BSA - 2.09 sq.m BMI - 25.80 Temperature - 97.6 F (LOW) Pulse - 98 /min Respiration - 16 /min BP - 153/78 mm(hg) (HIGH) O2 Sat - 97 % Pain - 0 Physical Examination: Constitutional - He looks good generally, Eyes - Sclerae nonicteric. Conjunctivae clear, ENMT - No lesions noted in the oral cavity, Hematologic/Lymphatic - No cervical, clavicular, or axillary adenopathy, Respiratory - Lungs are clear with good air movement bilaterally, Cardiovascular - Heart rhythm is regular. There is no murmur, gallop, or rub noted, Abdomen - Soft. Liver and spleen are not enlarged. There is no abdominal mass or ascites noted. I do not feel any inguinal adenopathy, Genitalia/Groin/Buttock (M) - There is mild residual scrotal swelling and erythema. The subcutaneous nodule in the area of the base of the penile shaft is no longer palpable, Extremities - No edema, Neurologic - No focal neurologic deficits noted. Lab/Imaging: Test performed on Jan 15, 2020 08:26 Sodium 134 mmol/L Potassium 4.0 mmol/L Chloride 99 mmol/L CO2 21 mmol/L Anion Gap 18.0 BUN 18 mg/dL Creatinine 1.0 mg/dL Cr Clearance (Est) 92.9800 mL/min eGFR 75.2 mL/min Glucose 326 mg/dL Osmolality - Calculated 293 mOsm/kg Calcium 9.0 mg/dL Protein, Total 7.4 g/dL Albumin 4.6 g/dL Globulin 2.8 g/dL Bilirubin, Total 0.3 mg/dL ALT (SGPT) 20 U/L AST (SGOT) 15 U/L Alkaline Phosphatase 115 IU/L WBC 14.6 10 3/uL RBC 4.30 10 6/uL HGB 11.7 g/dL HCT 36.9 % MCV 85.8 fL MCH 27.2 pg MCHC 31.7 g/dL RDW 18.5 % Platelet Count 363 10 3/cmm MPV 8.6 fL Neutrophils 14.16 10 3/uL Lymphocytes 0.3 10 3/uL Monocytes 0.0 10 3/uL Eosinophils 0.0 10 3/uL Basophils 0.0 10 3/uL Neutrophil % 96.8 % Lymphocyte % 2.2 % Monocyte % 0.2 % Eosinophil % 0.0 % Basophils % 0.1 % NRBC % 0 % Impression: 1. 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 By clinical evaluation his disease is stage IV (T1b, N2, M1) with PET/CT evidence of bilateral inguinal, iliac, retroperitoneal, and retrocrural lymphadenopathy as well as a small metastatic nodule at the penile root. There is additional FDG avid left cervical level 3 lymph node felt to be indeterminate. 2. He underwent partial penectomy on 08/11/2019. 3. He has required prolonged antibiotic therapy for postoperative lymphedema/scrotal swelling. His other medical illnesses include: 4. Hypertension. 5. Hyperlipidemia. 6. GERD. 7. Benign prostatic hypertrophy. 8. Type II diabetes, diet controlled. He began cycle 1 of neoadjuvant chemotherapy with cisplatin, ifosfamide, and paclitaxel on 12/04/2019. He was severely neutropenic at day 8, but he recovered uneventfully with Neupogen. Other side effects included mild nausea, diarrhea for 4 days, and mild neuropathy. Overall, he tolerated treatment well. He continued with cycle 2 on 12/25/2019 with a dose reduction in the paclitaxel and with addition of Neulasta. He had significant weakness/fatigue lasting about 3 days after the treatment, but he otherwise tolerated it well. Plan: He will proceed with cycle 3 of cisplatin, ifosfamide, and paclitaxel. The dosages remain the same. He will be given Neulasta prophylactically. He returns in 3 weeks for his 4th and cycle of treatment, following which he will undergo restaging at the [facility]. Signed By: Henry Lemons M.D. <<Signature on File>>
== END 2020-01-15 23:59 | disposition home or self-care (01) ==
LOC: ONCMED 05:12
PROVIDERS: Nurse Practitioner; PCP Nurse Practitioner; Visit Provider Internal Medicine Medical Oncology
DX: Z51.11 Encounter for antineoplastic chemotherapy (principal); C60.1 Malignant neoplasm of glans penis; I10 Essential (primary) hypertension; E78.5 Hyperlipidemia, unspecified; K21.9 Gastro-esophageal reflux disease without esophagitis; N40.0 Benign prostatic hyperplasia without lower urinary tract symptoms; E11.9 Type 2 diabetes mellitus without complications; Z79.899 Other long term (current) drug therapy
CPT/HCPCS: 36591; 80053; 85007; 85025; 96366; 96367; 96372; 96375; 96413; 96415; 96417; 99214; J1100; J1200; J1442; J1453; J1940; J2405; J2469; J2505; J3475; J3480; J3490; J7030; J7040; J7050; J9060; J9208; J9209; J9267

== ENCOUNTER 2020-02-12 05:20 | Outpatient (RCR) | payer OTHER, SELFPAY ==
[2020-01-16] MEDS: sodium chloride 0.9% 250 ML 75 ML IV (08:33)
[2020-01-16] MEDS: acetaminophen 325 mg Tablet 650 MG PO (09:40)
[2020-01-16] MEDS: famotidine 20 mg/2 mL INJ IVP (09:45)
[2020-01-16] MEDS: FUROsemide 10 mg/mL SDV 2mL 20 MG IV (13:16)
[2020-01-16] MEDS: sodium chlor 0.9% + KCl 20 mEq 20 MEQ/1,000 ML BAG 500 MEQ IV (13:18)
[2020-01-17] MEDS: famotidine 20 mg/2 mL INJ IVP (09:52)
[2020-01-17] MEDS: acetaminophen 325 mg Tablet 650 MG PO (09:55)
[2020-01-17] MEDS: palonosetron 0.25 mg/5 mL SDV IV (09:55)
[2020-01-17] MEDS: FUROsemide 10 mg/mL SDV 2mL 20 MG IV (13:08)
[2020-01-17] MEDS: sodium chlor 0.9% + KCl 20 mEq 20 MEQ/1,000 ML BAG 500 MEQ IV (13:10)
[2020-01-17] MEDS: pegfilgrastim 6 mg/0.6 mL Kit (onpro) SUBCUT (14:27)
[2020-01-22 08:32] LABS: Basophils # 0.1 10^3/uL (0.0-0.1); Basophils % 0.9 %; Eosinophils % 0.3 %; Hematocrit 31.8 % (42.0-52.0); Hemoglobin 10.2 g/dL (11.7-16.6); Lymphocytes # 0.9 10^3/uL (0.8-4.8); Lymphocytes % 9.8 %; Mean Corpuscular HGB Conc 32.1 g/dL (30.0-36.0); Mean Corpuscular Hemoglobin 27.1 pg (28.0-34.0); Mean Corpuscular Volume 84.4 fL (80-94); Mean Platelet Volume 9.1 fL (7.4-10.4); Monocytes # 0.8 10^3/uL (0.2-0.9); Monocytes % 9.1 %; Neutrophils # 6.19 10^3/uL (1.8-7.7); Nucleated Red Blood Cells % 0 %; Platelet Count 237 10^3/cmm (130-400); Red Blood Count 3.77 10^6/uL (4.1-5.3); Red Cell Distribution Width 18.7 % (12.1-15.1); White Blood Count 8.9 10^3/uL (4.0-10.0)
[2020-01-22 08:58] LABS: Slide Review Slide Review Perform
[2020-01-29 10:00] LABS: Basophils % 0.3 %; Eosinophils % 0.2 %; Hematocrit 33.4 % (42.0-52.0); Hemoglobin 10.1 g/dL (11.7-16.6); Lymphocytes # 1.2 10^3/uL (0.8-4.8); Lymphocytes % 12.6 %; Mean Corpuscular HGB Conc 30.2 g/dL (30.0-36.0); Mean Corpuscular Hemoglobin 27.2 pg (28.0-34.0); Mean Corpuscular Volume 89.8 fL (80-94); Mean Platelet Volume 8.7 fL (7.4-10.4); Monocytes # 0.6 10^3/uL (0.2-0.9); Monocytes % 6.9 %; Nucleated Red Blood Cells % 0 %; Platelet Count 119 10^3/cmm (130-400); Red Blood Count 3.72 10^6/uL (4.1-5.3); Red Cell Distribution Width 20.8 % (12.1-15.1); White Blood Count 9.1 10^3/uL (4.0-10.0)
[2020-02-05] MEDS: sodium chloride 0.9% 250 ML IV (08:45)
[2020-02-05 09:00] LABS: Basophils % 0.2 %; Hematocrit 35.2 % (42.0-52.0); Hemoglobin 11.3 g/dL (11.7-16.6); Lymphocytes # 0.2 10^3/uL (0.8-4.8); Lymphocytes % 1.7 %; Mean Corpuscular HGB Conc 32.1 g/dL (30.0-36.0); Mean Corpuscular Hemoglobin 27.7 pg (28.0-34.0); Mean Corpuscular Volume 86.3 fL (80-94); Mean Platelet Volume 8.7 fL (7.4-10.4); Monocytes % 0.3 %; Neutrophils # 12.63 10^3/uL (1.8-7.7); Neutrophils % 97.2 %; Nucleated Red Blood Cells % 0 %; Platelet Count 331 10^3/cmm (130-400); Red Blood Count 4.08 10^6/uL (4.1-5.3)
[2020-02-05 09:21] LABS: Alanine Aminotransferase 18 U/L (0-41); Albumin Level 4.5 g/dL (3.5-5.2); Alkaline Phosphatase 98 IU/L (40-130); Anion Gap 16.9 (5-19); Aspartate Amino Transferase 14 U/L (0-40); Blood Urea Nitrogen 17 mg/dL (8-23); Calcium 9.3 mg/dL (8.5-10.5); Carbon Dioxide 22 mmol/L (22-29); Chloride 100 mmol/L (98-107); Globulin 2.4 g/dL (1.3-4.6); Glucose 264 mg/dL (65-115); Osmolality Calculated 291 mOsm/kg (285-295); Potassium 3.9 mmol/L (3.5-5.1); Sodium 135 mmol/L (136-145); Total Bilirubin 0.4 mg/dL (0.15-1.2); Total Protein 6.9 g/dL (6.6-8.7)
[2020-02-05] MEDS: acetaminophen 325 mg Tablet 650 MG PO (10:53)
[2020-02-05] MEDS: famotidine 20 mg/2 mL INJ IVP (10:54)
[2020-02-05] MEDS: ondansetron 2 mg/ML SDV 2 mL 8 MG IV (10:56)
[2020-02-05] MEDS: diphenhydrAMINE 50 mg/mL SDV 1mL 25 MG IV (11:20)
[2020-02-05] MEDS: sodium chloride 0.9% (100 ml) 100 ML 400 ML (11:20)
[2020-02-05] MEDS: sodium chlor 0.9% + KCl 20 mEq 20 MEQ/1,000 ML BAG 500 MEQ IV (16:26)
[2020-02-05] MEDS: FUROsemide 10 mg/mL SDV 2mL 20 MG IV (16:27)
--- NOTE | 2020-02-05 22:10 | ONC FU_ITS ---
[facility]ll[facility] Patient Note Patient: Aiden Simon Unit #: [id number]: 1955 Dictated By: Kathia SharpDate of Visit: Feb 05, 2020 Onc MED Follow-Up/Prog Note Chief Complaint: Penile cancer. 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 By clinical evaluation his disease is stage IV (T1b, N2, M1). He has been in good general health. He had presented to Dr. Gray in July 2019 with a 6-month history of worsening skin changes in head of the penis. His exam showed invasive appearing lesions on the glans penis which were grossly suspicious for squamous cell carcinoma. 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 He then underwent partial penectomy on 08/11/2019. 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 It measured 4.0 x 3.0 cm. The tumor was 4 cm from the skin margin. It was noted to invade into the lamina propria for a depth of 10 mm. There was vascular invasion identified. There was no invasion in the corpus cavernosum, corpus spongiosum, or Appiah's fascia. Pathologic staging was T1b. Following the surgery he had complications with scrotal swelling and erythema, requiring prolonged antibiotic therapy. His CT abdomen/pelvis on 09/28/2019 showed slightly enlarged bilateral inguinal lymph nodes, right greater than left, with the largest node measuring 2.7 x 1.4 cm. There was mild diffuse fatty infiltration of the liver. There was evidence of bilateral hydroceles with diffuse scrotal skin thickening. He was then referred to Dr. Tk Yao at the [facility]. His staging PET/CT on 11/01/2019 showed multiple retroperitoneal, bilateral iliac, bilateral inguinal, and right retrocrural FDG avid enlarged lymph nodes with maximum SUV 23. Focal FDG avid soft tissue nodule at the penile root had maximum SUV 23.6. This was all consistent with metastatic involvement. A left level 3 cervical lymph node was FDG avid with maximum SUV 8.4, felt to be nonspecific. Additional findings included mildly enlarged calcified and noncalcified mediastinal and bilateral hilar lymph nodes without associated FDG activity, felt to be likely reactive. Given the PET/CT findings, he was recommended to undergo neoadjuvant chemotherapy. His other medical illnesses include hypertension, hyperlipidemia, GERD, and benign prostatic hypertrophy. He has type 2 diabetes, but it has been diet controlled. He is a non-smoker, but he does chew tobacco. INTERIM HISTORY: On 12/04/2019 he began cycle 1 of neoadjuvant chemotherapy with cisplatin, ifosfamide, and paclitaxel. It was administered over 3 days. He tolerated it without acute toxicity. He had subsequently experienced some fatigue for several days after the treatment and reported having bad diarrhea for 4 days. At day 8 he was neutropenic, but it resolved with Neupogen. He also had some mild neuropathy symptoms. Overall, he tolerated the treatment reasonably well and by clinical evaluation he did appear to be showing some response. He continued with cycle 2 on 12/25/2019 with a dose reduction in the paclitaxel and with addition of Neulasta. He completed cycle 3 on January 17, 2020. He is tolerating it well overall. He states that he does have about 4 days after chemo he is disconnected blah and washed out. He really does not have nausea or diarrhea he states he just cannot washed out. He states after 4 days now he feels fine and is able to do all of his ADLs without any assistance. He states in general he feels great . He states his been out cutting wood. He states that he had a tractor for a neighbor. 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 He denies any fever or chills. He has had no known Covid exposure or symptoms. He denies any pending test. He states he does have some knee pain with the Neulasta but states IcyHot relieves it without any problem. He denies any other pain. He states that he has not had any persistent diarrhea. He states he has occasional but it resolves well with Imodium if even needs to take that. He does have occasional nausea but states it is relieved with antiemetics and is not a problem . He states overall he feels he has done well. He has had slight neuropathy in his fingers but states that that is not bothersome either. He denies any new concerns. His ECOG is 0. Past Medical History: Benign prostatic hypertrophy Gastroesophageal reflux disease Hyperlipidemia Hypertension Type II diabetes Past Surgical History: Appendectomy Left subclavian PowerPort by Dr. [facility] in 2019 Partial penectomy in 2020 Allergies: No Known Allergies. Medications: amLODIPine Besylate 1 Tablet (of 10 mg) Oral daily Furosemide 1 Tablet (of 20 mg) Oral daily Olmesartan Medoxomil 1 Tablet (of 40 mg) Oral daily Pravastatin Sodium 1 Tablet (of 40 mg) Oral daily Sucralfate 1 Tablet (of 1 g) Oral b.i.d. Tamsulosin HCl 1 Capsule (of 0.4 mg) Oral daily Family History: Mr. Simon's mother at age 62. Mr. Simon's father at age 70: heart attack. Mr. Simon has 1 sister who is . Father with heart attack at age 70. Mother at 69 and a sister at age 62 with cancer, type unknown to the patient. Four brothers are in good health. Social History: Mr. Simon is . He is a light tobacco smoker. He has no history of drinking. He has indicated exposure to the following products: cigarettes and chewing tobacco. He is retired. He restores [employer] for a hobby. He is a non-smoker, but he chews tobacco 3 times a day. He drinks of beer once a week. Review Of Symptoms: Constitutional Denies fevers, chills, night sweats, excessive fatigue or weight loss. Has fatigue but recovers well with rest. Allergic/Immunologic No reactions. Eyes Denies significant visual changes. No diplopia. No amaurosis. ENMT Denies changes in hearing, sore throat, mouth sores, difficulty or changes in swallowing ability, and/or sinus drainage. Endocrine No diabetes, thyroid disease or hormone replacement. Denies hot flashes or night sweats. Hematologic/Lymphatic Denies easy bruising or bleeding. The patient denies any tender or palpable lymph nodes. Respiratory Denies dyspnea on exertion, chest pain, cough or hemoptysis. Denies orthopnea. Cardiovascular Denies anginal chest pain, palpitations or orthopnea. Gastrointestinal Denies persistent or uncontrolled nausea, vomiting, GI bleeding, or constipation. Denies change in bowel habits and/or stool color, no heartburn or early satiety. Genitourinary (M) Denies hematuria, dysuria, increased frequency, urgency, hesitancy or incontinence. Musculoskeletal Denies joint pain, swelling or redness. No decreased range of motion. Integumentary Denies chronic rashes, inflammation, ulcerations or skin changes. Neurologic Denies headache, blurred vision, and no areas of focal weakness or numbness. Normal gait. No sensory problems. Psychiatric Denies insomnia, depression, shanelle or mood swings. Vital Signs: Performed on Feb 05, 2020 09:47 Height - 72.00 in Weight - 180.8 lbs (LOW) BSA - 2.04 sq.m BMI - 24.52 Temperature - 98.1 F (LOW) Pulse - 109 /min (HIGH) Respiration - 16 /min BP - 168/82 mm(hg) (HIGH) O2 Sat - 94 % (LOW) Pain - 0,0 - Fully active, able to carry on all predisease activities without restrictions. (ECOG) Physical Examination: Constitutional Alert, oriented, no acute distress. Skin pink, warm and dry. Head Normocephalic; atraumatic. Eyes Conjunctivae and sclerae are clear and without icterus. Pupils are reactive and equal. ENMT No oral exudates, ulcers, masses, thrush or mucositis. Oropharynx clear. Tongue normal. Neck Supple without masses or thyromegaly. No jugular venous distension. Hematologic/Lymphatic No petechiae or purpura. No tender or palpable lymph nodes in the cervical or supraclavicular areas. Respiratory Lungs are clear to auscultation without rhonchi or wheezing. Cardiovascular Regular rate and rhythm of heart without murmurs,clicks, gallops or rubs. Chest Chest is symmetric without chest wall deformities. Left chest wall Port-A-Cath site is unremarkable. Abdomen Non-tender, non-distended, no masses or ascites. Good bowel sounds noted in all quads. No guarding or rebound tenderness. No pulsatile masses. Back/Spine Non-tender to palpation. Extremities No visible deformities, no cyanosis, clubbing or edema. Musculoskeletal No tenderness or swelling, normal range of motion without obvious weakness. Integumentary No rashes or lesions. Neurologic No sensory or motor deficits, normal cerebellar function, normal gait. Psychiatric Alert and oriented times three. Coherent speech. Verbalizes understanding of our discussions today. Laboratory:Test performed on Feb 05, 2020 08:45 Sodium 135 mmol/L Potassium 3.9 mmol/L Chloride 100 mmol/L CO2 22 mmol/L Anion Gap 16.9 BUN 17 mg/dL Creatinine 1.0 mg/dL Cr Clearance (Est) 91.7600 mL/min eGFR 75.0 mL/min Glucose 264 mg/dL Osmolality - Calculated 291 mOsm/kg Calcium 9.3 mg/dL Protein, Total 6.9 g/dL Albumin 4.5 g/dL Globulin 2.4 g/dL Bilirubin, Total 0.4 mg/dL ALT (SGPT) 18 U/L AST (SGOT) 14 U/L Alkaline Phosphatase 98 IU/L WBC 13.0 10 3/uL RBC 4.08 10 6/uL HGB 11.3 g/dL HCT 35.2 % MCV 86.3 fL MCH 27.7 pg MCHC 32.1 g/dL RDW 21.0 % Platelet Count 331 10 3/cmm MPV 8.7 fL Neutrophils 12.63 10 3/uL Lymphocytes 0.2 10 3/uL Monocytes 0.0 10 3/uL Eosinophils 0.0 10 3/uL Basophils 0.0 10 3/uL Neutrophil % 97.2 % Lymphocyte % 1.7 % Monocyte % 0.3 % Eosinophil % 0.0 % Basophils % 0.2 % NRBC % 0 % Test performed on Jan 22, 2020 08:19 CBC Slide Review Slide Review Perform SLIDE REVIEW AGREES WITH AUTOMATED RESULTS Test performed on Dec 13, 2019 12:21 Magnesium 2.0 mg/dL Impression: 1. 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 By clinical evaluation his disease is stage IV (T1b, N2, M1) with PET/CT evidence of bilateral inguinal, iliac, retroperitoneal, and retrocrural lymphadenopathy as well as a small metastatic nodule at the penile root. There is additional FDG avid left cervical level 3 lymph node felt to be indeterminate. 2. He underwent partial penectomy on 08/11/2019. 3. He has required prolonged antibiotic therapy for postoperative lymphedema/scrotal swelling. His other medical illnesses include: 4. Hypertension. 5. Hyperlipidemia. 6. GERD. 7. Benign prostatic hypertrophy. 8. Type II diabetes, diet controlled. He began cycle 1 of neoadjuvant chemotherapy with cisplatin, ifosfamide, and paclitaxel on 12/04/2019. He was severely neutropenic at day 8, but he recovered uneventfully with Neupogen. Other side effects included mild nausea, diarrhea for 4 days, and mild neuropathy. Overall, he tolerated treatment well. He continued with cycle 2 on 12/25/2019 with a dose reduction in the paclitaxel and with addition of Neulasta. He completed cycle 3 on 01/15/2020 through 01/17/2020. He has had significant weakness/fatigue lasting about 3-4 days after the treatment, but he otherwise tolerated it well. He has recovered from cycle 3 and states he feels great and is anxious to complete cycle 4. Plan: 1. Proceed with cycle 4 cisplatin ifosfamide and paclitaxel. His ifosfamide is a 3 day regimen. 2. Continue with growth factor support for prevention of chemotherapy-induced neutropenia. He has tolerated the Neulasta well with only concerns of knee pain which is relieved with icy hot. 3. Continue aggressive antiemetics for high risk regimen. 4. Today's labs reviewed in detail and discussed with Mr. Simon and a copy was given to him. WBC is 13 hemoglobin 11.3 platelets are 1 31,000 ANC is 12,600. Potassium 3.9 creatinine 1.0 LFTs are normal. His weight is 180.8 today. 5. We will plan to contact Dr. Yao's office and let him know that he will complete his chemotherapy this week so that they can set up for the referral for him. Dr. Yao had wanted to see him back after 4 cycles of the chemotherapy. He will have restaging workup with Dr Yao at the [facility]. 6. I have tentatively made Mr. Simon a 1 month follow-up with CBC CMP. If he has not yet had follow-up with Dr. Yao we can move this appointment. I does did not want him to get lost to follow-up. We will also continue weekly interim counts to monitor for chemotherapy induced anemia, thrombocytopenia or neutropenia. 7. Mr. Simon was instructed to contact us in interim should questions or problems arise. 8. I have agreed to refill his medication generally filled by his PCP. He is advised that we will do this until he is completed with his chemotherapy and follow-up with Dr. Yao and then he will need to refer back to his primary care provider for monitoring of his blood pressure and primary health concerns. Signed By: Kathia Sharp-, AOCNP Henry Lemons MD <<Signature on File>>
[2020-02-06] MEDS: sodium chloride 0.9% 250 ML 75 ML IV (08:30)
[2020-02-06] MEDS: diphenhydrAMINE 50 mg/mL SDV 1mL 25 MG IV (09:32)
[2020-02-06] MEDS: famotidine 20 mg/2 mL INJ IVP (09:32)
[2020-02-06] MEDS: ondansetron 2 mg/ML SDV 2 mL 8 MG IV (09:40)
[2020-02-06] MEDS: acetaminophen 325 mg Tablet 650 MG PO (09:40)
[2020-02-06] MEDS: FUROsemide 10 mg/mL SDV 2mL 20 MG IV (12:56)
[2020-02-06] MEDS: sodium chlor 0.9% + KCl 20 mEq 20 MEQ/1,000 ML BAG 500 MEQ IV (12:58)
[2020-02-07] MEDS: sodium chloride 0.9% 250 ML 75 ML IV (08:40)
[2020-02-07] MEDS: diphenhydrAMINE 50 mg/mL SDV 1mL 25 MG IV (10:02)
[2020-02-07] MEDS: famotidine 20 mg/2 mL INJ IVP (10:04)
[2020-02-07] MEDS: acetaminophen 325 mg Tablet 650 MG PO (10:10)
[2020-02-07] MEDS: palonosetron 0.25 mg/5 mL SDV IV (10:10)
[2020-02-07] MEDS: FUROsemide 10 mg/mL SDV 2mL 20 MG IV (13:08)
[2020-02-07] MEDS: sodium chlor 0.9% + KCl 20 mEq 20 MEQ/1,000 ML BAG 500 MEQ IV (13:10)
[2020-02-07] MEDS: pegfilgrastim 6 mg/0.6 mL Kit (onpro) SUBCUT (14:15)
[2020-02-12 09:09] LABS: Basophils # 0.1 10^3/uL (0.0-0.1); Basophils % 1.1 %; Eosinophils % 0.5 %; Hematocrit 29.5 % (42.0-52.0); Hemoglobin 9.4 g/dL (11.7-16.6); Lymphocytes # 0.7 10^3/uL (0.8-4.8); Lymphocytes % 11.4 %; Mean Corpuscular HGB Conc 31.9 g/dL (30.0-36.0); Mean Corpuscular Hemoglobin 27.9 pg (28.0-34.0); Mean Corpuscular Volume 87.5 fL (80-94); Mean Platelet Volume 9.9 fL (7.4-10.4); Monocytes # 0.5 10^3/uL (0.2-0.9); Monocytes % 7.5 %; Neutrophils # 4.46 10^3/uL (1.8-7.7); Neutrophils % 69.4 %; Nucleated Red Blood Cells % 0 %; Platelet Count 181 10^3/cmm (130-400); Red Blood Count 3.37 10^6/uL (4.1-5.3); Red Cell Distribution Width 20.5 % (12.1-15.1); White Blood Count 6.4 10^3/uL (4.0-10.0)
[2020-02-12 09:42] LABS: Alanine Aminotransferase 17 U/L (0-41); Albumin Level 4.2 g/dL (3.5-5.2); Alkaline Phosphatase 102 IU/L (40-130); Anion Gap 13.4 (5-19); Aspartate Amino Transferase 13 U/L (0-40); Blood Urea Nitrogen 14 mg/dL (8-23); Calcium 8.7 mg/dL (8.5-10.5); Carbon Dioxide 26 mmol/L (22-29); Chloride 101 mmol/L (98-107); Globulin 2.2 g/dL (1.3-4.6); Glucose 130 mg/dL (65-115); Osmolality Calculated 286 mOsm/kg (285-295); Potassium 3.4 mmol/L (3.5-5.1); Sodium 137 mmol/L (136-145); Total Bilirubin 0.4 mg/dL (0.15-1.2); Total Protein 6.4 g/dL (6.6-8.7)
[2020-02-12 10:08] LABS: Slide Review Slide Review Perform
== END 2020-02-15 23:59 | disposition home or self-care (01) ==
LOC: ONCMED 05:20
PROVIDERS: Nurse Practitioner; PCP Nurse Practitioner; Visit Provider Internal Medicine Medical Oncology
DX: Z51.11 Encounter for antineoplastic chemotherapy (principal); C60.1 Malignant neoplasm of glans penis; I10 Essential (primary) hypertension; E78.5 Hyperlipidemia, unspecified; K21.9 Gastro-esophageal reflux disease without esophagitis; N40.0 Benign prostatic hyperplasia without lower urinary tract symptoms; E11.9 Type 2 diabetes mellitus without complications; Z79.899 Other long term (current) drug therapy
CPT/HCPCS: 36591; 80053; 85025; 96366; 96367; 96372; 96375; 96413; 96415; 96417; 99214; J1100; J1200; J1453; J1940; J2405; J2469; J2505; J3475; J3480; J3490; J7030; J7040; J7050; J9060; J9208; J9209; J9267

== ENCOUNTER 2020-02-29 08:46 | Outpatient (CLI) | payer OTHER, SELFPAY ==
[2020-02-29 09:23] LABS: Basophils # 0.1 10^3/uL (0.0-0.1); Basophils % 1.2 %; Eosinophils % 0.6 %; Hematocrit 34.2 % (42.0-52.0); Hemoglobin 10.7 g/dL (11.7-16.6); Lymphocytes % 20.2 %; Mean Corpuscular HGB Conc 31.3 g/dL (30.0-36.0); Mean Corpuscular Hemoglobin 28.8 pg (28.0-34.0); Mean Corpuscular Volume 91.9 fL (80-94); Mean Platelet Volume 8.6 fL (7.4-10.4); Monocytes # 0.7 10^3/uL (0.2-0.9); Monocytes % 14.1 %; Neutrophils # 3.15 10^3/uL (1.8-7.7); Neutrophils % 63.5 %; Nucleated Red Blood Cells % 0 %; Platelet Count 394 10^3/cmm (130-400); Red Blood Count 3.72 10^6/uL (4.1-5.3); Red Cell Distribution Width 20.5 % (12.1-15.1)
[2020-02-29 10:04] LABS: Alanine Aminotransferase 18 U/L (0-41); Albumin Level 4.3 g/dL (3.5-5.2); Alkaline Phosphatase 90 IU/L (40-130); Aspartate Amino Transferase 18 U/L (0-40); Blood Urea Nitrogen 14 mg/dL (8-23); Calcium 8.7 mg/dL (8.5-10.5); Carbon Dioxide 26 mmol/L (22-29); Chloride 99 mmol/L (98-107); Globulin 2.4 g/dL (1.3-4.6); Glucose 124 mg/dL (65-115); Osmolality Calculated 278 mOsm/kg (285-295); Sodium 133 mmol/L (136-145); Total Bilirubin 0.4 mg/dL (0.15-1.2); Total Protein 6.7 g/dL (6.6-8.7)
== END 2020-02-29 08:47 | disposition home or self-care (01) ==
LOC: ONCMED 08:49
PROVIDERS: PCP Nurse Practitioner; Visit Provider Internal Medicine Medical Oncology
DX: C60.1 Malignant neoplasm of glans penis (principal)
CPT/HCPCS: 36591; 80053; 85025

== ENCOUNTER 2020-03-11 12:17 | Outpatient (RCR) | payer OTHER, SELFPAY ==
--- NOTE | 2020-03-15 18:21 | ONC FU_ITS ---
Dr. Lemons Patient Follow-Up Note Patient: Aiden Simon Unit #: [id number]: 1955 Dicatated By: Henry Lemons M.D.Date of Visit:Mar 11, 2020 Onc Med Follow-up/Prog Note Chief Complaint: Penile cancer. 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 By clinical evaluation his disease is stage IV (T1b, N2, M1). He has been in good general health. He had presented to Dr. Gray in July 2019 with a 6-month history of worsening skin changes in head of the penis. His exam showed invasive appearing lesions on the glans penis which were grossly suspicious for squamous cell carcinoma. 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 He then underwent partial penectomy on 08/11/2019. 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 It measured 4.0 x 3.0 cm. The tumor was 4 cm from the skin margin. It was noted to invade into the lamina propria for a depth of 10 mm. There was vascular invasion identified. There was no invasion in the corpus cavernosum, corpus spongiosum, or Appiah's fascia. Pathologic staging was T1b. Following the surgery he had complications with scrotal swelling and erythema, requiring prolonged antibiotic therapy. His CT abdomen/pelvis on 09/28/2019 showed slightly enlarged bilateral inguinal lymph nodes, right greater than left, with the largest node measuring 2.7 x 1.4 cm. There was mild diffuse fatty infiltration of the liver. There was evidence of bilateral hydroceles with diffuse scrotal skin thickening. He was then referred to Dr. Tk Yao at the [facility]. His staging PET/CT on 11/01/2019 showed multiple retroperitoneal, bilateral iliac, bilateral inguinal, and right retrocrural FDG avid enlarged lymph nodes with maximum SUV 23. Focal FDG avid soft tissue nodule at the penile root had maximum SUV 23.6. This was all consistent with metastatic involvement. A left level 3 cervical lymph node was FDG avid with maximum SUV 8.4, felt to be nonspecific. Additional findings included mildly enlarged calcified and noncalcified mediastinal and bilateral hilar lymph nodes without associated FDG activity, felt to be likely reactive. Given the PET/CT findings, he was recommended to undergo neoadjuvant chemotherapy. His other medical illnesses include hypertension, hyperlipidemia, GERD, and benign prostatic hypertrophy. He has type 2 diabetes, but it has been diet controlled. He is a non-smoker, but he does chew tobacco. INTERIM HISTORY: On 12/04/2019 he began cycle 1 of neoadjuvant chemotherapy with cisplatin, ifosfamide, and paclitaxel. It was administered over 3 days. He tolerated it without acute toxicity. He had subsequently experienced some fatigue for several days after the treatment and reported having bad diarrhea for 4 days. At age 80 he was neutropenic, but it resolved with Neupogen. He also had some mild neuropathy symptoms. Overall, he tolerated the treatment reasonably well and by clinical evaluation he did appear to be showing some response. He continued with cycle 2 on 12/25/2019 with a dose reduction in the paclitaxel and with addition of Neulasta. He tolerated it well. He continued with cycle 3 on 01/15/2020 and with cycle 4 on 02/05/2020. He then had follow-up with Dr. Yao at the [facility], and his restaging PET/CT reportedly showed no areas of abnormal FDG uptake, consistent with a complete response to treatment. With that finding, he was recommended to continue on close observation. He is seen for a follow-up visit. He has been feeling pretty good generally. He says his energy is getting better. He is pretty much back to normal activity. ECOG score is 0. He has good appetite. He does not have fever or night sweats. He says the ringing in his ears has stopped. He does not complain of shortness of breath, cough, or chest pain. He has no GI/ complaints other than occasional heartburn. He has no significant joint or bone pain. He has a little residual tingling in his fingertips. His neuropathy symptoms have otherwise resolved. Medications: amLODIPine Besylate 1 Tablet (of 10 mg) Oral daily, Furosemide 1 Tablet (of 20 mg) Oral daily, Olmesartan Medoxomil 1 Tablet (of 40 mg) Oral daily, Pravastatin Sodium 1 Tablet (of 40 mg) Oral daily, Sucralfate 1 Tablet (of 1 g) Oral b.i.d., Tamsulosin HCl 1 Capsule (of 0.4 mg) Oral daily Allergies: No Known Allergies. Vital Signs: Performed on Mar 11, 2020 12:25 Height - 72.00 in Weight - 188 lbs (HIGH) BSA - 2.08 sq.m BMI - 25.50 Temperature - 97.5 F (LOW) Pulse - 84 /min Respiration - 18 /min BP - 148/80 mm(hg) (HIGH) O2 Sat - 98 % Pain - 0 Fatigue - 0 Physical Examination: Constitutional - He looks good generally, Eyes - Sclerae nonicteric. Conjunctivae clear, ENMT - No lesions noted in the oral cavity, Hematologic/Lymphatic - No cervical, clavicular, or axillary adenopathy, Respiratory - Lungs are clear with good air movement bilaterally, Cardiovascular - Heart rhythm is regular. There is no murmur, gallop, or rub noted, Abdomen - Soft. Liver and spleen are not enlarged. There is no abdominal mass or ascites noted. There is no inguinal adenopathy noted, Genitalia/Groin/Buttock (M) - There has been complete resolution of the swelling and erythema. The previously noted subcutaneous nodule at the base of the penile shaft is no longer palpable, Extremities - No edema, Neurologic - No focal neurologic deficits noted. Lab/Imaging: Test performed on Feb 29, 2020 09:04 Sodium 133 mmol/L Potassium 4.0 mmol/L Chloride 99 mmol/L CO2 26 mmol/L Anion Gap 12.0 BUN 14 mg/dL Creatinine 0.8 mg/dL Cr Clearance (Est) 114.7000 mL/min eGFR 97.0 mL/min Glucose 124 mg/dL Osmolality - Calculated 278 mOsm/kg Calcium 8.7 mg/dL Protein, Total 6.7 g/dL Albumin 4.3 g/dL Globulin 2.4 g/dL Bilirubin, Total 0.4 mg/dL ALT (SGPT) 18 U/L AST (SGOT) 18 U/L Alkaline Phosphatase 90 IU/L WBC 5.0 10 3/uL RBC 3.72 10 6/uL HGB 10.7 g/dL HCT 34.2 % MCV 91.9 fL MCH 28.8 pg MCHC 31.3 g/dL RDW 20.5 % Platelet Count 394 10 3/cmm MPV 8.6 fL Neutrophils 3.15 10 3/uL Lymphocytes 1.0 10 3/uL Monocytes 0.7 10 3/uL Eosinophils 0.0 10 3/uL Basophils 0.1 10 3/uL Neutrophil % 63.5 % Lymphocyte % 20.2 % Monocyte % 14.1 % Eosinophil % 0.6 % Basophils % 1.2 % NRBC % 0 % Problem List: 1. Poorly differentiated squamous cell carcinoma involving the glans penis, P 16+. By clinical evaluation his disease was stage IV (T1b, N2, M1) with PET/CT evidence of bilateral inguinal, iliac, retroperitoneal, and retrocrural lymphadenopathy as well as a small metastatic nodule at the penile root. There was additional FDG avid left cervical level 3 lymph node felt to be indeterminate. 2. He underwent partial penectomy on 08/11/2019. 3. He has required prolonged antibiotic therapy for postoperative lymphedema/scrotal swelling. 4. Hypertension. 5. Hyperlipidemia. 6. GERD. 7. Benign prostatic hypertrophy. 8. Type II diabetes, diet controlled. Problems Addressed with this Encounter and Plan: Poorly differentiated squamous cell carcinoma involving the glans penis, P 16+. By clinical evaluation his disease was stage IV (T1b, N2, M1) with PET/CT evidence of bilateral inguinal, iliac, retroperitoneal, and retrocrural lymphadenopathy as well as a small metastatic nodule at the penile root. There was additional FDG avid left cervical level 3 lymph node felt to be indeterminate. He underwent partial penectomy on 08/11/2019. From November through January 2020 he completed 4 cycles of neoadjuvant chemotherapy with cisplatin, ifosfamide, and paclitaxel. He required a dose reduction after cycle 1, but thereafter he tolerated the treatment well. He has had a complete response by restaging PET/CT. With that finding, he has been advised to continue on close observation. At this point he is doing well clinically. He has had almost complete recovery from chemotherapy related toxicities. He will come in for port flush monthly. He is scheduled to have follow-up with Dr. Yao at [facility] on 05/30/2020. In the meantime, I will see him here again as needed. Signed By: Henry Lemons M.D. <<Signature on File>>
== END 2020-03-17 23:59 | disposition home or self-care (01) ==
LOC: ONCMED 12:17
PROVIDERS: PCP Nurse Practitioner; Visit Provider Internal Medicine Medical Oncology
DX: Z08 Encounter for follow-up examination after completed treatment for malignant neoplasm (principal); Z85.49 Personal history of malignant neoplasm of other male genital organs; Z92.21 Personal history of antineoplastic chemotherapy; Z90.79 Acquired absence of other genital organ(s)
CPT/HCPCS: G0463

== ENCOUNTER 2020-04-12 08:20 | Outpatient (CLI) | payer OTHER, SELFPAY | END 2020-04-12 08:21 | disposition home or self-care (01) | LOC: ONCMED 08:24 | PROVIDERS: PCP Nurse Practitioner; Visit Provider Internal Medicine Medical Oncology | DX: Z45.2 Encounter for adjustment and management of vascular access device (principal) | CPT/HCPCS: 96523 ==

== ENCOUNTER 2020-05-10 09:26 | Outpatient (CLI) | payer OTHER, SELFPAY | END 2020-05-10 09:27 | disposition home or self-care (01) | LOC: ONCMED 09:27 | PROVIDERS: PCP Nurse Practitioner; Visit Provider Internal Medicine Medical Oncology | DX: Z45.2 Encounter for adjustment and management of vascular access device (principal) | CPT/HCPCS: 96523 ==

== ENCOUNTER 2020-08-31 09:11 | Emergency (ER) | payer OTHER, SELFPAY ==
[2020-08-31 09:15] VITALS: BP 213/107; PULSE 82; RESP 18; TEMP 37; O2SAT 98; BMI 25.0
--- NOTE | 2020-08-31 09:40 | W.ED.EXTPRO ---
HPI - Extremity Problem General: Chief complaint: Extremity Injury, Upper Stated complaint: Pain in R shoulder/neck&arm Time Seen by Provider: 08/31/20 09:24 History of Present Illness: HPI Narrative: Patient is a 65 y/o male comes to the ED with left shoulder and left neck pain. Patient has a past medical history of cancer and has a port placed and finished up his last round of chemo in January 2020. Patient has to get PET scans every 3 months and has been cancer free for the past couple months. About 10 days ago patient started having pain in his left shoulder and arm along with the left side of his neck. 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 He is seen the chiropractor 5 times in the last 10 days and he feels like it is gotten worse after he visits chiropractor. He reports some relief of left shoulder pain when he holds his arm at 90 degrees and close to his body. He has some tender nodules on the left side of his neck as well. Patient thinks the pain is coming from his port. Denies any pain, redness or drainage from port site. He denies any fever, chills, chest pain, shortness of breath, abdominal pain, nausea/vomiting, bladder or bowel symptoms. Associated symptoms: Deny chest pain, fever(s) or rash Review of Systems Const: Denies: fever(s), chills or fatigue Eyes: Denies: change in vision or eye discomfort ENMT: Denies: throat pain, odynophagia, nasal discharge or nasal congestion Card: Denies: chest pain, palpitations, edema, swelling of feet/ankles, dyspnea on exertion or orthopnea Resp: Denies: dyspnea, productive cough or non-productive cough GI: Denies: abdominal pain, nausea, vomiting, diarrhea, constipation or hematochezia : Denies: flank pain, difficulty urinating, dysuria or hematuria Musc: Reports: neck pain (left side of neck) and extremity pain (left shoulder and then it radiates down arm in some positions); Denies: back pain or extremity swelling Skin/Breast: Denies: rash or new lesions Neuro: Denies: headache(s), numbness in extremities or weakness in extremities [facility] ED PFSH: Medical History BPH NOS w ur obs/LUTS Controlled diabetes mellitus without complication Elevated PSA HTN, goal below 130/80 Mixed hyperlipidemia Reflux gastritis Scrotal swelling Squamous cell skin cancer, 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 Partial penectomy 08/11/2019. Surgical History History of appendectomy Port-A-Cath in place (11/24/19) Family History Father CAD (coronary artery disease) Sister Cancer Mother Cancer Other Diabetes Hypertension Denies family history of Anesthesia complication Bleeding disorder Social History Smoking and tobacco status: light tobacco smoker smokeless tobacco Smokeless tobacco user: chewing tobacco Second hand smoke exposure: No Smoking risk assessment/counseling performed?: No Alcohol intake: never Desire information about alcohol rehabilitation?: No Counseling given: No Desire information about substance/drug rehabilitation?: No Counseling given: No Adopted: No Caregiver/support person: No Lives independently: Yes Household members: spouse Housing: House Marital status: Number of children: 2 service: No Current occupational status: retired Pets and animals: No History of recent travel: No Current gender identity: Male Physical Exam Const: COMMON NORMALS: no acute distress, patient oriented x3 and alert GENERAL APPEARANCE: cooperative and comfortable HENMT: COMMON NORMALS: normocephalic HEAD & SCALP: normocephalic MOUTH: Normal oral and palatal mucosa present THROAT: posterior oropharynx normal and uvula midline Neck/C-Spine: COMMON NORMALS: supple GENERAL: Yes normal visual inspection and Yes lymphadenopathy Lymphadenopathy location: anterior cervical (left) hard and tender 0.5 cm CERVICAL SPINE: Yes Paracervical muscle tenderness left and Yes Trapezius muscle tenderness left Chest: OTHER: Patient's port on the left side of upper chest shows no erythema, warmth and is nontender to palpation. Exam of port is unremarkable. Resp: COMMON NORMALS: normal respiratory effort, No retractions, No use of accessory muscles and clear to auscultation bilaterally AUSCULTATION: clear to auscultation bilaterally Cardio: COMMON NORMALS: regular rate, regular rhythm, S1 normal heart sound present, S2 normal heart sound present, No gallops present (Cardio), No clicks present (Cardio), No murmurs present (Cardio) and Peripheral pulses 2+ throughout RATE: regular rate RHYTHM: regular rhythm HEART SOUNDS: S1 normal heart sound present and S2 normal heart sound present PERIPHERAL PULSES: Peripheral pulses 2+ throughout GI: COMMON NORMALS: Normal to inspection, nondistended, normoactive bowel sounds present, Soft to palpation, non-tender and no masses PALPATION: Yes Soft to palpation : COMMON NORMALS: Yes no CVA tenderness BLADDER/KIDNEY EXAM: Yes no CVA tenderness Back/Pelvis: COMMON NORMALS: no CVA tenderness Extremity: COMMON NORMALS: normal to inspection LEFT UPPER EXTREMITY: Yes shoulder joint Left shoulder joint: Yes inspection (No visible deformity or swelling seen.), Yes palpation (Mild tenderness around the AC joint.), Yes ROM (Limited abduction of left arm due to pain.) and Yes neurovascular exam Neuro: COMMON NORMALS: patient oriented x3 and moves all extremities SENSORIUM/ORIENTATION: Yes alert Skin: GENERAL SKIN EXAM: dry skin Course Vital Signs: Vital signs: Vital Signs Temperature 98.6 F 08/31/20 09:15 Pulse Rate 64 08/31/20 12:23 Respiratory Rate 16 08/31/20 12:23 Blood Pressure 187/110 08/31/20 12:23 Pulse Oximetry 98 08/31/20 12:23 MDM - Extremity (Nontraumatic) MDM Narrative: Medical decision making narrative: Patient is a 65-year-old male comes to the ED with left shoulder pain. Patient noticed the pain started after he was working in his shop and sweeping the floor. Patient has a chest port on the left side and is concerned that that might be why he is having this left shoulder pain. Exam shows a healthy patient in no acute distress. Patient's port has no erythema, warmth or tenderness. He has some left para cervical muscle tenderness along with left trapezius tenderness. Shoulder exam shows some AC joint tenderness as well. Neurovascular tact distally. Range of motion limited especially for abduction. Exam findings suggestive of some musculoskeletal shoulder pain. Chest x-ray showed no acute findings. Left shoulder x-ray showed no acute fractures, but noted some mild chronic degenerative joint disease. Ultrasound venous duplex of left upper extremity showed no blood clots or DVTs. Patient was diagnosed with left shoulder pain and neck pain on left side. Patient was discharged home with a prescription for hydrocodone for pain and methocarbamol. He was told to follow-up with his PCP in 7 to 10 days for reevaluation. Return to ED precautions given. Patient understood agree with plan. Imaging Data^: Xray Ortho: Attestation: I personally reviewed and interpreted this imaging study as follows: Radiologist's impression: [address] [id number] ReportSigned Patient: Aiden Simon #: [id number]: 5Acct#:[id number]/Sex: 65 / MADM Date: 08/31/20Loc: ERRoom/Bed:Attending Dr: Ordering Provider/Ordering MD: Pedro Méndez Date of Service: 08/31/20 Procedure(s): XR shoulder LT min 2V* [id number] Accession Number(s): [id number] Report Number: [id number] PROCEDURE INFORMATION: Exam: XR Left Shoulder Exam date and time: 08/31/2020 9:41 AM Age: 65 years old Clinical indication: Patient HX: C/O pain left shoulder and neck after sweeping floor. HX of cancer-finished treatment 02/03. ; Additional info: Left shoulder pain TECHNIQUE: Imaging protocol: XR Left shoulder. Views: 2 or more views. COMPARISON: OT C-arm [place] CV[place] [id number] 11/24/2019 7:14 AM FINDINGS: Bones/joints: Mild degenerative changes are present with sclerosis in the glenoid. No fracture or other acute abnormalities are seen. Incidentally noted is a presence of a MediPort catheter overlying the left upper chest. Soft tissues: Normal. XR/XR shoulder LT min 2V* [id number] IMPRESSION: There is sclerosis in the glenoid consistent with chronic degenerative joint disease. No acute abnormality. Dictated By:Toney Hudson By:Toney Hudson Date/Time:09/01/20 0957DD/ 0955 Vascular: Attestation: I personally reviewed and interpreted this imaging study as follows: Radiologist's impression: Ultrasound venous duplex of left upper extremity?prelim report?no DVTs or blood clots seen. CXR: Attestation: I personally reviewed and interpreted this imaging study as follows: Radiologist's impression: [place] [id number] [facility] [place], [place] [address]DEei ReportSigned Patient: Aiden Simon #: [id number]: [id number]#:[id number]/Sex: 65 / MADM Date: 08/31/20Loc: ERRoom/Bed:Attending Dr: Ordering Provider/Ordering MD: Pedro Méndez Date of Service: 08/31/20 Procedure(s): XR chest 1V portable [id number] Accession Number(s): [id number] Report Number: [id number] PROCEDURE INFORMATION: Exam: XR Chest Exam date and time: 08/31/2020 10:00 AM Age: 65 years old Clinical indication: Other: Left side shoulder and neck; Prior surgery; Surgery date: 6+ months; Surgery type: Port; Patient HX: C/O pain left shoulder and neck after sweeping. HX ofcancer. Finished treatment 02/03; Additional info: Chest port complaint TECHNIQUE: Imaging protocol: XR of the chest. Views: 1 view. COMPARISON: CT abdomen pelvis wo/w [id number] 09/28/2019 7:47 AM FINDINGS: Tubes, catheters and devices: A MediPort catheter projects in satisfactory position with the tip projecting in the SVC. Lungs: Unremarkable. No consolidation. Pleural spaces: Unremarkable. No pleural effusion. No pneumothorax. Heart/Mediastinum: Unremarkable. No cardiomegaly. Bones/joints: Unremarkable. XR/XR chest 1V portable [id number] IMPRESSION: No significant cardiopulmonary abnormality. Dictated By:Toney Hudson By:Toney Hudson Date/Time:09/01/20 0957DD/ 0956 Discharge Plan Discharge Patient Disposition: Home Clinical Impression: Neck pain on left side Left shoulder pain Qualifiers: Chronicity: acute Qualified Code(s): M25.512 - Pain in left shoulder Condition: Stable Prescriptions: New methocarbamol 750 mg tablet 750 mg PO Q8H Qty: 15 RF: 0 No Action ciprofloxacin HCl 500 mg tablet 500 mg PO BID Qty: 60 RF: 1 sucralfate [Carafate] 1 gram tablet 1 gm PO BID Qty: 60 RF: 5 pravastatin 40 mg tablet 40 mg PO DAILY Qty: 30 RF: 5 olmesartan 40 mg tablet 40 mg PO DAILY Qty: 30 RF: 5 amlodipine 10 mg tablet 10 mg PO DAILY Qty: 30 RF: 5 furosemide [Lasix] 20 mg tablet 20 mg PO DAILY Qty: 30 RF: 5 tamsulosin [Flomax] 0.4 mg capsule 0.4 mg PO DAILY Qty: 30 RF: 5 Discharge Orders: Discharge ED (Routine); Ordered 08/31/20 Ordered By: Pedro Méndez Referrals: Carmen Guerrier, TAPING MACHINE OPERATOR-C [Primary Care Provider] - Discharge Diet: Regular Discharge Activity: Increase activity as tolerated Patient Instructions: Opioid Safety Activity Restrictions/Additional Instructions: Follow-up with medical provider as directed in 5-7 daysfor reevaluation. Take medications as prescribed. Return to the ER or your medical provider if condition worsens. Please read and understand discharge instructions. Thank you for choosing [facility] for your healthcare needs today. Please realize this is an emergency room and that we are providing you with a medical screening exam and this may not be complete and all inclusive of all the testing and or work up that you may need to determine your ailment or severity of your illness. It is very important that you follow up as instructed or that you return to the Emergency Department should you have concerns or if your condition changes or worsens in any way. Coding Level of Care Code ED Minilab Operator for Maida Lema Exam Comprehensive
--- NOTE | 2020-08-31 10:00 | XRR_ITS ---
PROCEDURE INFORMATION: Exam: XR Chest Exam date and time: 08/31/2020 10:00 AM Age: 65 years old Clinical indication: Other: Left side shoulder and neck; Prior surgery; Surgery date: 6+ months; Surgery type: Port; Patient HX: C/O pain left shoulder and neck after sweeping. HX ofcancer. Finished treatment 02/03; Additional info: Chest port complaint TECHNIQUE: Imaging protocol: XR of the chest. Views: 1 view. COMPARISON: CT abdomen pelvis wo/w [id number] 09/28/2019 7:47 AM FINDINGS: Tubes, catheters and devices: A MediPort catheter projects in satisfactory position with the tip projecting in the SVC. Lungs: Unremarkable. No consolidation. Pleural spaces: Unremarkable. No pleural effusion. No pneumothorax. Heart/Mediastinum: Unremarkable. No cardiomegaly. Bones/joints: Unremarkable. XR/XR chest 1V portable [id number] IMPRESSION: No significant cardiopulmonary abnormality.
--- NOTE | 2020-08-31 10:11 | USR_ITS ---
PROCEDURE INFORMATION: Exam: US Duplex Left Upper Extremity Veins, Limited Exam date and time: 08/31/2020 10:11 AM Age: 65 years old Clinical indication: Pain; Arm, upper; Left; Additional info: Left arm pain-non traumatic, PT has a central venous port and history of cancer TECHNIQUE: Imaging protocol: Real-time Duplex ultrasound of the Left Upper Extremity with 2-D melvin scale, color Doppler flow and spectral waveform analysis with image documentation. Limited exam focused on the left upper extremity veins. COMPARISON: OT C-arm [place] for CVA [id number] 11/24/2019 7:14 AM FINDINGS: Left deep veins: No deep venous thrombosis in the visualized left internal jugular, subclavian, axillary, brachial, radial, or ulnar veins. Left superficial veins: Visualized cephalic and basilic veins are patent without thrombus. Soft tissues: Unremarkable. [place] [id number] IMPRESSION: No deep venous thrombosis in the visualized left upper extremity.
[2020-08-31 11:41] VITALS: BP 182/92; PULSE 64; RESP 16; O2SAT 97
[2020-08-31] MEDS: HYDROcodone-acetaminophen 5-325 mg Tablet 1 TAB PO (11:47)
[2020-08-31 12:23] VITALS: BP 187/110; PULSE 64; RESP 16; O2SAT 98
== END 2020-08-31 12:23 | disposition home or self-care (01) ==
PROVIDERS: Emergency Provider Physician Assistant; PCP Nurse Practitioner
DX: M25.512 Pain in left shoulder (principal); M54.2 Cervicalgia; E11.9 Type 2 diabetes mellitus without complications; I10 Essential (primary) hypertension; E78.2 Mixed hyperlipidemia; F17.220 Nicotine dependence, chewing tobacco, uncomplicated
CPT/HCPCS: 71045; 73030; 93971; 99283

== ENCOUNTER 2020-09-05 13:52 | Outpatient (CLI) | payer OTHER, SELFPAY | END 2020-09-05 13:53 | disposition home or self-care (01) | PROVIDERS: PCP Nurse Practitioner; Visit Provider Internal Medicine Medical Oncology | DX: Z45.2 Encounter for adjustment and management of vascular access device (principal) | CPT/HCPCS: 96523 ==

== ENCOUNTER 2020-12-03 10:14 | Outpatient (CLI) | payer OTHER, SELFPAY ==
[2020-12-03] MEDS: alteplase 1 mg/mL SDV 2 mL 2 MG IV (10:40)
== END 2020-12-03 10:15 | disposition home or self-care (01) ==
LOC: ONCMED 10:19
PROVIDERS: PCP Nurse Practitioner; Visit Provider Internal Medicine Medical Oncology
DX: C60.1 Malignant neoplasm of glans penis (principal); C77.8 Secondary and unspecified malignant neoplasm of lymph nodes of multiple regions; Z79.899 Other long term (current) drug therapy
CPT/HCPCS: 36593; 96374; J2997

== ENCOUNTER 2021-01-01 08:09 | Outpatient (CLI) | payer OTHER, SELFPAY | END 2021-01-01 08:10 | disposition home or self-care (01) | LOC: ONCMED 08:11 | PROVIDERS: PCP Nurse Practitioner; Visit Provider Internal Medicine Medical Oncology | DX: Z45.2 Encounter for adjustment and management of vascular access device (principal) | CPT/HCPCS: 96523 ==

== ENCOUNTER 2021-01-30 10:26 | Outpatient (CLI) | payer OTHER, SELFPAY | END 2021-01-30 10:27 | disposition home or self-care (01) | PROVIDERS: PCP Nurse Practitioner; Visit Provider Nurse Practitioner | DX: Z45.2 Encounter for adjustment and management of vascular access device (principal) | CPT/HCPCS: 96523 ==

== ENCOUNTER 2021-03-03 13:09 | Outpatient (CLI) | payer OTHER, SELFPAY | END 2021-03-03 13:10 | disposition home or self-care (01) | PROVIDERS: PCP Nurse Practitioner; Visit Provider Internal Medicine Medical Oncology | DX: Z45.2 Encounter for adjustment and management of vascular access device (principal) | CPT/HCPCS: 96523 ==

== ENCOUNTER 2021-07-01 12:33 | Oncology outpatient (recurring) (ONCR) | payer OTHER, SELFPAY | END 2021-07-15 23:59 | disposition home or self-care (01) | LOC: ONCMED 12:34 | PROVIDERS: PCP Nurse Practitioner; Visit Provider Internal Medicine Medical Oncology | DX: Z45.2 Encounter for adjustment and management of vascular access device (principal) | CPT/HCPCS: 96523 ==

== ENCOUNTER 2021-08-01 10:04 | Oncology outpatient (recurring) (ONCR) | payer OTHER, SELFPAY | END 2021-08-14 23:59 | disposition home or self-care (01) | PROVIDERS: PCP Nurse Practitioner; Visit Provider Internal Medicine Medical Oncology | DX: Z45.2 Encounter for adjustment and management of vascular access device (principal) | CPT/HCPCS: 96523 ==

== ENCOUNTER 2021-10-03 10:26 | Oncology outpatient (recurring) (ONCR) | payer OTHER, SELFPAY | END 2021-10-15 23:59 | disposition home or self-care (01) | PROVIDERS: PCP Nurse Practitioner; Visit Provider Internal Medicine Medical Oncology | DX: Z45.2 Encounter for adjustment and management of vascular access device (principal) | CPT/HCPCS: 96523 ==

== ENCOUNTER → 2021-10-23 09:45 | Outpatient (BNVA) | payer OTHER, SELFPAY | PROVIDERS: PCP Nurse Practitioner; Visit Provider Nurse Practitioner | DX: I10 Essential (primary) hypertension (principal); K29.60 Other gastritis without bleeding; E78.2 Mixed hyperlipidemia; R39.11 Hesitancy of micturition; E11.9 Type 2 diabetes mellitus without complications | CPT/HCPCS: 80053; 80061; 82043; 83036 ==

== ENCOUNTER → 2021-11-19 14:25 | Outpatient (BNVA) | payer MEDICARE, SELFPAY | PROVIDERS: PCP Nurse Practitioner; Visit Provider Surgery | DX: R94.8 Abnormal results of function studies of other organs and systems (principal) | CPT/HCPCS: 99203 ==

== ENCOUNTER 2022-01-19 05:36 | Day surgery (SDC) | payer MEDICARE, SELFPAY ==
[2022-01-15 14:00] VITALS: BMI 29.8
--- NOTE | 2022-01-19 05:54 | W.PM.OPSFHP ---
Same Day Surgery H&P Indication for Procedure/HPI DATE OF PROCEDURE: January 19, 2022 CHIEF COMPLAINT/INDICATIONFOR SURGICAL PROCEDURE: I am here for colonoscopy PREOP DIAGNOSIS: penile ca PLANNED PROCEDURE: Operation Date: 01/19/22 07:00 Proposed Procedures p Colonoscopy 48307,R93.89(Not Applicable) - Moshe Junior MD 11/19/2021 This is a pleasant 66 years old gentleman with well-known history of penile carcinoma as he did undergo recently a PET CT scan and showed activities of the sigmoid colon.? Patient denies bleeding per rectum or history of colon cancer.? As he mentioned that he never had a colonoscopy before. 01/19/2022 Patient comes today for diagnostic colonoscopy. PET CT scan showed postsurgical changes of partial penectomy. Short segment of markedly FDG avid bowel wall thickening of the mid sigmoid colon/mesentery with maximum SUV of 22.6 concerning for neoplastic process. Further evaluation with colonoscopy and/or tissue biopsy recommended. FDG avid bilateral borderline enlarged and prominent nonenlarged superficial inguinal external iliac lymph nodes. Findings could represent metastases. None FDG avid borderline enlarged prostate. Correlation with PSA ROS All systems have been reviewed negative except as for the above or per problem list. 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 Partial penectomy 08/11/2019. Surgical History (Updated 10/23/21 @ 09:42 by ANTHONY Young) History of appendectomy History of colonoscopy July, in [place], [place] Port-A-Cath in place (11/24/19) Family History (Updated 11/21/19 @ 13:58 by Mandy Tinoco LPN) Diabetes CAD (coronary artery disease) Father Cancer Sister Mother Hypertension Denies family history of Anesthesia complication Bleeding disorder Social History Smoking and tobacco status: unknown if ever smoked Second hand smoke exposure: No Smoking risk assessment/counseling performed?: No Alcohol intake: never Desire information about alcohol rehabilitation?: No Counseling given: No Desire information about substance/drug rehabilitation?: No Counseling given: No Adopted: No Caregiver/support person: No Lives independently: Yes Household members: spouse Housing: House Marital status: Number of children: 2 service: No Current occupational status: retired Pets and animals: No History of recent travel: No Current gender identity: Male Pertinent Exam Findings alert, oriented x 3, regular rate & rhythm and procedure specific exam findings (Abdominal exam nontender nondistended soft) Recommendations Surgery/Procedure today (Colonoscopy with possible biopsy) Coding Level of Care Code Acute Historic Site Administrator for Maida Lema
[2022-01-19 06:10] VITALS: BP 135/80; PULSE 72; RESP 18; TEMP 36.1; O2SAT 99
[2022-01-19] MEDS: sodium chloride 0.9% 1,000 ML 30 ML IV (06:13)
--- NOTE | 2022-01-19 06:46 | ANES.PREANE2 ---
Pre-Anesthetic Assessment Height/Weight: Height 1.75 m Weight 91.626 kg Temp Pulse Resp BP Pulse Ox O2 Del Method 96.9 F L 72 18 135/80 99 01/19/22 06:10 01/19/22 06:10 01/19/22 06:10 01/19/22 06:10 01/19/22 06:10 01/19/22 06:10 Preop Diagnosis: Abnormal PET CT of the colon Operation Date: 01/19/22 07:00 Proposed Procedures p Colonoscopy 38281,R93.89(Not Applicable) - Moshe Junior MD Was Beta Leo taken within 24 hours: N/A Was Clonidine taken within 24 hours: N/A Last intake: Intake Last Liquid Date 01/18/22 Last Liquid Time 20:30 Last Solid Date 01/17/22 Last Solid Time 18:00 Social Tobacco Dips Exam alert, oriented x 3, clear to auscultation bilaterally and regular rate & rhythm Airway Submandibular: within normal limits Cervical ROM: within normal limits Mallampati: Class II Dentition: false Comments: Comments: Upper plate History/ROS No significant history except as noted and No significant complaints Pulmonary None reported CV/HEM Hypertension None reported Hepatic None reported GI None reported Musc/skel None reported Neuropsych None reported Anesthetic Plan ASA status: 2 Anesthesia: Anesthesia Evaluation and MAC Risk of > 500 ml blood loss (7ml/kg in children): No Medications/Allergies Home Medications Medication Instructions Recorded Confirmed Last Taken Type amlodipine 10 mg tablet 10 mg PO DAILY #30 tabs 10/23/21 01/19/22 01/18/22 Rx furosemide 20 mg tablet (Lasix) 20 mg PO DAILY #30 tabs 10/23/21 01/19/22 01/18/22 Rx olmesartan 20 mg tablet (Benicar) 20 mg PO DAILY #30 tabs 10/23/21 01/19/22 01/18/22 Rx pravastatin 40 mg tablet 40 mg PO DAILY #30 tabs 10/23/21 01/19/22 01/18/22 Rx sucralfate 1 gram tablet (Carafate) 1 g PO BID #60 tabs 10/23/21 01/19/22 01/18/22 Rx tamsulosin 0.4 mg capsule (Flomax) 0.4 mg PO DAILY #30 caps 09/10/0601/19/22 01/18/22 Rx Allergies Allergy/AdvReac Type Severity Reaction Status Date / Time No Known Allergies Allergy Verified 01/19/22 06:06 Current Medications Generic Name Dose Route Start Last Admin Trade Name Cameron PRN Reason Stop Dose Admin Sodium Chloride 1,000 mls @ 30 mls/hr 01/19/22 06:15 01/19/22 06:13 Sodium Chloride 0.9% IV 01/20/22 06:14 30 mls/hr .Q24H FARTUN Administration PFSH Anesthesia Medical History BPH NOS w ur obs/LUTS Controlled diabetes mellitus without complication Elevated PSA HTN, goal below 130/80 Mixed hyperlipidemia Reflux gastritis Scrotal swelling Squamous cell skin cancer, 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 Partial penectomy 08/11/2019. Surgical History History of appendectomy History of colonoscopy July, in [place], [place] Port-A-Cath in place (11/24/19) Family History Father CAD (coronary artery disease) Sister Cancer Mother Cancer Other Diabetes Hypertension Denies family history of Anesthesia complication Bleeding disorder Social History Smoking and tobacco status: unknown if ever smoked Second hand smoke exposure: No Smoking risk assessment/counseling performed?: No Alcohol intake: never Desire information about alcohol rehabilitation?: No Counseling given: No Desire information about substance/drug rehabilitation?: No Counseling given: No Adopted: No Caregiver/support person: No Lives independently: Yes Household members: spouse Housing: House Marital status: Number of children: 2 service: No Current occupational status: retired Pets and animals: No History of recent travel: No Current gender identity: Male Data Anesthesia Cardiac Studies: No Data to Display
[2022-01-19 07:23] VITALS: BP 100/65; PULSE 57; RESP 18; TEMP 36.2; O2SAT 100
[2022-01-19 07:40] VITALS: BP 112/71; PULSE 61; RESP 18; O2SAT 100
[2022-01-19 07:45] LABS: Basophils # 0.1 10^3/uL (0.0-0.1); Basophils % 1.2 %; Eosinophils # 0.3 10^3/uL (0.0-0.8); Eosinophils % 5.1 %; Hematocrit 30.7 % (42.0-52.0); Hemoglobin 8.9 g/dL (11.7-16.6); Lymphocytes # 1.1 10^3/uL (0.8-4.8); Lymphocytes % 21.9 %; Mean Corpuscular Hemoglobin 20.9 pg (28.0-34.0); Mean Corpuscular Volume 72.2 fl (80-94); Mean Platelet Volume 8.9 fL (7.4-10.4); Monocytes # 0.5 10^3/uL (0.2-0.9); Monocytes % 10.7 %; Neutrophils # 3.08 10^3/uL (1.8-7.7); Neutrophils % 60.9 %; Nucleated Red Blood Cells % 0 %; Platelet Count 359 10^3/cmm (130-400); Red Blood Count 4.25 10^6/uL (4.1-5.3); Red Cell Distribution Width 16.2 % (12.1-15.1); White Blood Count 5.1 10^3/uL (4.0-10.0)
[2022-01-19 08:17] LABS: Carcinoembryonic Antigen 3.9 ng/mL (0.0-4.7)
[2022-01-19 08:28] LABS: Alanine Aminotransferase 23 U/L (0-41); Albumin Level 4.2 g/dL (3.5-5.2); Alkaline Phosphatase 69 U/L (40-130); Anion Gap 14.9 (5-19); Aspartate Amino Transferase 22 U/L (0-40); Blood Urea Nitrogen 10 mg/dL (8-23); Calcium 8.5 mg/dL (8.5-10.5); Carbon Dioxide 24 mmol/L (22-29); Chloride 103 mmol/L (98-107); Globulin 2.9 g/dL (1.3-4.6); Glomerular Filtration Rate 55.1 mL/min (90-130); Glucose 124 mg/dL (65-115); Osmolality Calculated 286 mOsm/kg (285-295); Potassium 3.9 mmol/L (3.5-5.1); Sodium 138 mmol/L (136-145); Total Bilirubin 0.5 mg/dL (0.15-1.2); Total Protein 7.1 g/dL (6.6-8.7)
--- NOTE | 2022-01-19 15:34 | ANE.PACU2 ---
Inpatient post-anesthesia follow up: Airway intact: Yes Vital signs: Temperature 97.1 F Pulse Rate 61 Respiratory Rate 18 Blood Pressure 112/71 Pulse Oximetry 100 Oxygen Delivery Me thod Room Air Oxygen Flow Rate 3 Fraction of Inspir ed Oxygen Hydration adequate: Yes Nausea and vomiting: No Pain level: 1 Mental status: Baseline
[2022-01-22 08:06] LABS: Mismatch Repari Proteins-IHC See Report
== END 2022-01-19 08:10 | disposition home or self-care (01) ==
PROVIDERS: PCP Nurse Practitioner; Visit Provider Surgery
PROC: 0DJD8ZZ Inspection of Lower Intestinal Tract, Via Natural or Artificial Opening Endoscopic (ICD-10-PCS; CPT 45378; principal; 2022-01-19 07:00)
DX: R93.89 Abnormal findings on diagnostic imaging of other specified body structures (principal); K57.30 Diverticulosis of large intestine without perforation or abscess without bleeding; C18.7 Malignant neoplasm of sigmoid colon; I10 Essential (primary) hypertension; N40.1 Benign prostatic hyperplasia with lower urinary tract symptoms; N13.8 Other obstructive and reflux uropathy; E11.9 Type 2 diabetes mellitus without complications; E78.2 Mixed hyperlipidemia
CPT/HCPCS: 36415; 45380; 45381; 80053; 82378; 85025; 88305; 88360; J2704; J7030

== ENCOUNTER → 2022-01-27 13:31 | Outpatient (BNVA) | payer MEDICARE, SELFPAY | PROVIDERS: PCP Nurse Practitioner; Visit Provider Surgery | DX: K57.31 Diverticulosis of large intestine without perforation or abscess with bleeding (principal); C18.9 Malignant neoplasm of colon, unspecified | CPT/HCPCS: 99213 ==

== ENCOUNTER 2022-01-30 10:13 | Oncology outpatient (recurring) (ONCR) | payer MEDICARE, SELFPAY | END 2022-02-14 23:59 | disposition home or self-care (01) | PROVIDERS: PCP Nurse Practitioner; Visit Provider Internal Medicine Medical Oncology | DX: Z45.2 Encounter for adjustment and management of vascular access device (principal); Z95.828 Presence of other vascular implants and grafts | CPT/HCPCS: 96523 ==

== ENCOUNTER 2022-04-08 13:00 | Oncology outpatient (recurring) (ONCR) | payer MEDICARE, SELFPAY ==
[2022-04-08 14:01] LABS: Basophils % 0.4 %; Eosinophils # 0.1 10^3/uL (0.0-0.8); Eosinophils % 1.5 %; Hematocrit 31.5 % (42.0-52.0); Lymphocytes # 1.2 10^3/uL (0.8-4.8); Lymphocytes % 17.5 %; Mean Corpuscular HGB Conc 28.6 g/dL (30.0-36.0); Mean Corpuscular Hemoglobin 19.7 pg (28.0-34.0); Mean Corpuscular Volume 68.8 fl (80-94); Mean Platelet Volume 8.9 fL (7.4-10.4); Monocytes # 0.5 10^3/uL (0.2-0.9); Monocytes % 6.8 %; Neutrophils # 5.04 10^3/uL (1.8-7.7); Neutrophils % 73.4 %; Nucleated Red Blood Cells % 0 %; Platelet Count 363 10^3/cmm (130-400); Red Blood Count 4.58 10^6/uL (4.1-5.3); Red Cell Distribution Width 17.7 % (12.1-15.1); White Blood Count 6.9 10^3/uL (4.0-10.0)
[2022-04-08 14:23] LABS: Alanine Aminotransferase 16 U/L (0-41); Albumin Level 4.2 g/dL (3.5-5.2); Alkaline Phosphatase 86 U/L (40-130); Anion Gap 14.5 (5-19); Aspartate Amino Transferase 16 U/L (0-40); Blood Urea Nitrogen 13 mg/dL (8-23); Calcium 8.9 mg/dL (8.5-10.5); Carbon Dioxide 27 mmol/L (22-29); Chloride 99 mmol/L (98-107); Globulin 3.2 g/dL (1.3-4.6); Glomerular Filtration Rate 60.4 mL/min (90-130); Glucose 194 mg/dL (65-115); Osmolality Calculated 289 mOsm/kg (285-295); Potassium 3.5 mmol/L (3.5-5.1); Sodium 137 mmol/L (136-145); Total Bilirubin 0.3 mg/dL (0.15-1.2); Total Protein 7.4 g/dL (6.6-8.7)
[2022-04-08 15:06] LABS: Ferritin 9 ng/mL (30-400); Iron 14 ug/dL (59-158); Percent Saturation 3.1 % (20-50); Total Iron Binding Capacity 440 mcg/dl; Unsaturated Iron Binding 426 ug/dL (112-347)
== END 2022-04-14 23:59 | disposition home or self-care (01) ==
PROVIDERS: PCP Nurse Practitioner; Visit Provider Internal Medicine Medical Oncology
DX: D64.9 Anemia, unspecified (principal); Z45.2 Encounter for adjustment and management of vascular access device
CPT/HCPCS: 36415; 80053; 82728; 83540; 83550; 85025; 99214; 99215

== ENCOUNTER 2022-06-04 14:33 | Outpatient (CLI) | payer MEDICARE, SELFPAY ==
[2022-06-04] MEDS: iohexol 350 mg/mL 500 mL Btl (per mL) IV (15:29)
[2022-06-04] MEDS: iohexol 350 mg/mL 500 mL Btl (per mL) PO (15:29)
--- NOTE | 2022-06-04 16:00 | CTR_ITS ---
PROCEDURE INFORMATION: Exam: CT Abdomen And Pelvis With Contrast Exam date and time: 06/04/2022 4:42 PM Age: 67 years old Clinical indication: Condition or disease; Cancer; Prior surgery; Surgery type: Appy, colon, penectomy; Additional info: 3 month follow up TECHNIQUE: Imaging protocol: Computed tomography of the abdomen and pelvis with contrast. Radiation optimization: All CT scans at this facility use at least one of these dose optimization techniques: automated exposure control; mA and/or kV adjustment per patient size (includes targeted exams where dose is matched to clinical indication); or iterative reconstruction. Contrast material: OMNI 350; Contrast volume: 100 ml; Contrast route: INTRAVENOUS (IV); REPORTING DATA: Count of CT and Cardiac NM exams in prior 12 months: This patient has received [address] and 0 known cardiac nuclear medicine studies in the 12 months prior to the current study. COMPARISON: CT abdomen pelvis wo/w [id number] 09/28/2019 7:47 AM RADIATION DOSE METRICS: Total DLP (mGy-cm): 406.03 FINDINGS: Liver: A minor arterial phase perfusion defect of the hepatic left lobe medial segment is noted adjacent to the falciform ligament fissure, a normal variant. No hepatic mass. Gallbladder and bile ducts: Normal. No calcified stones. No ductal dilation. Pancreas: Normal. No ductal dilation. Spleen: The spleen demonstrates a few small granulomatous calcifications. Adrenal glands: Normal. No mass. Kidneys and ureters: Normal. No hydronephrosis. Stomach and bowel: Previous sigmoid colonic anastomosis. No anastomotic mass.'. Proximal sigmoid and distal descending colonic diverticula are present without evidence of diverticulitis. Appendix: The vermiform appendix is not identified on this examination. There is, however, no pericecal abnormality to suggest appendicitis. Intraperitoneal space: No free air. No significant fluid collection. Vasculature: Mild aortic atherosclerotic calcification without aneurysm. The iliac arteries show mild bilateral atherosclerotic calcifications without evidence of aneurysm. Lymph nodes: No enlarged lymph nodes. Urinary bladder: Unremarkable as visualized. Reproductive: Unremarkable as visualized. Bones/joints: Lumbar spine vertebral body marginal osteophytes are noted at multiple levels. Left femoral neck benign bone island, stable. No destructive bony process identified. Soft tissues: Anterior midline abdominal incisional scar. CT/CT abdomen pelvis w con* [id number] IMPRESSION: 1. Previous sigmoid colonic anastomosis. 2. No evidence of active abdominal/pelvic neoplasia. 3. Diverticulosis.
== END 2022-06-04 14:34 | disposition home or self-care (01) ==
LOC: RAD 14:36
PROVIDERS: PCP Nurse Practitioner; Visit Provider Internal Medicine Medical Oncology
DX: C18.7 Malignant neoplasm of sigmoid colon (principal); K63.89 Other specified diseases of intestine; K57.30 Diverticulosis of large intestine without perforation or abscess without bleeding
CPT/HCPCS: 74177; Q9967

== ENCOUNTER 2022-06-08 13:00 | Oncology outpatient (recurring) (ONCR) | payer MEDICARE, SELFPAY ==
[2022-06-04 13:05] VITALS: BP 122/78; PULSE 74; RESP 18; TEMP 36.6; O2SAT 98
[2022-06-04] MEDS: alteplase 1 mg/mL SDV 2 mL 2 MG INTRACATH ×2 (13:21→14:26)
[2022-06-04 14:48] LABS: Estmated Average Glucose 128; Hemoglobin A1C 6.1 % (4.0-6.0)
[2022-06-08 13:27] VITALS: BP 136/78; PULSE 70; RESP 16; TEMP 36.6; O2SAT 96
[2022-06-08] MEDS: alteplase 1 mg/mL SDV 2 mL 2 MG INTRACATH (13:47)
[2022-06-08 14:07] LABS: Basophils # 0.1 10^3/uL (0.0-0.1); Basophils % 1.2 %; Eosinophils # 0.2 10^3/uL (0.0-0.8); Eosinophils % 3.5 %; Hematocrit 41.9 % (42.0-52.0); Hemoglobin 12.8 g/dL (11.7-16.6); Lymphocytes # 1.8 10^3/uL (0.8-4.8); Lymphocytes % 29.3 %; Mean Corpuscular HGB Conc 30.5 g/dL (30.0-36.0); Mean Corpuscular Hemoglobin 25.2 pg (28.0-34.0); Mean Corpuscular Volume 82.5 fl (80-94); Mean Platelet Volume 9.1 fL (7.4-10.4); Monocytes # 0.4 10^3/uL (0.2-0.9); Monocytes % 6.5 %; Neutrophils # 3.54 10^3/uL (1.8-7.7); Neutrophils % 59.3 %; Nucleated Red Blood Cells % 0 %; Platelet Count 373 10^3/cmm (130-400); Red Blood Count 5.08 10^6/uL (4.1-5.3)
[2022-06-08 14:21] LABS: Alanine Aminotransferase 30 U/L (0-41); Albumin Level 4.5 g/dL (3.5-5.2); Alkaline Phosphatase 88 U/L (40-130); Anion Gap 11.5 (5-19); Aspartate Amino Transferase 21 U/L (0-40); Blood Urea Nitrogen 12 mg/dL (8-23); Calcium 8.8 mg/dL (8.5-10.5); Carbon Dioxide 26 mmol/L (22-29); Chloride 99 mmol/L (98-107); Ferritin 52 ng/mL (30-400); Glomerular Filtration Rate 66.8 mL/min (90-130); Glucose 188 mg/dL (65-115); Iron 354 ug/dL (59-158); Osmolality Calculated 281 mOsm/kg (285-295); Percent Saturation 85.5 % (20-50); Potassium 3.5 mmol/L (3.5-5.1); Sodium 133 mmol/L (136-145); Total Bilirubin 0.3 mg/dL (0.15-1.2); Total Iron Binding Capacity 414 mcg/dl; Total Protein 7.5 g/dL (6.6-8.7); Unsaturated Iron Binding 60 ug/dL (112-347)
[2022-06-08 15:00] LABS: Carcinoembryonic Antigen 1.5 ng/mL (0.0-4.7)
== END 2022-06-14 23:59 | disposition home or self-care (01) ==
PROVIDERS: PCP Nurse Practitioner; Visit Provider Internal Medicine Medical Oncology
DX: C60.1 Malignant neoplasm of glans penis (principal); C77.8 Secondary and unspecified malignant neoplasm of lymph nodes of multiple regions; Z90.79 Acquired absence of other genital organ(s); C18.7 Malignant neoplasm of sigmoid colon; Z90.49 Acquired absence of other specified parts of digestive tract; D50.9 Iron deficiency anemia, unspecified; E11.9 Type 2 diabetes mellitus without complications; Z79.4 Long term (current) use of insulin; Z79.899 Other long term (current) drug therapy; Z92.21 Personal history of antineoplastic chemotherapy
CPT/HCPCS: 36415; 36593; 74177; 80053; 82378; 82728; 83036; 83540; 83550; 85025; 99214; J2997; Q9967

== ENCOUNTER 2022-07-08 12:22 | Oncology outpatient (recurring) (ONCR) | payer MEDICARE, SELFPAY ==
[2022-07-08 12:54] VITALS: BP 145/83; PULSE 65; RESP 18; TEMP 36.5; O2SAT 97
== END 2022-07-15 23:59 | disposition home or self-care (01) ==
LOC: ONCMED 12:23
PROVIDERS: PCP Nurse Practitioner; Visit Provider Internal Medicine Medical Oncology
DX: Z45.2 Encounter for adjustment and management of vascular access device (principal)
CPT/HCPCS: 96523; J1642

== ENCOUNTER 2022-09-14 13:00 | Oncology outpatient (recurring) (ONCR) | payer MEDICARE, SELFPAY ==
[2022-09-14 13:04] VITALS: BMI 26.6
[2022-09-14 13:05] VITALS: BP 144/79; PULSE 77; RESP 16; TEMP 36.9; O2SAT 95
[2022-09-14 13:24] LABS: Basophils # 0.1 10^3/uL (0.0-0.1); Eosinophils # 0.2 10^3/uL (0.0-0.8); Eosinophils % 3.8 %; Hematocrit 41.8 % (42.0-52.0); Hemoglobin 13.6 g/dL (11.7-16.6); Lymphocytes # 1.4 10^3/uL (0.8-4.8); Lymphocytes % 28.3 %; Mean Corpuscular HGB Conc 32.5 g/dL (30.0-36.0); Mean Corpuscular Hemoglobin 29.8 pg (28.0-34.0); Mean Corpuscular Volume 91.5 fl (80-94); Mean Platelet Volume 8.9 fL (7.4-10.4); Monocytes # 0.4 10^3/uL (0.2-0.9); Monocytes % 8.7 %; Neutrophils # 2.93 10^3/uL (1.8-7.7); Nucleated Red Blood Cells % 0 %; Platelet Count 298 10^3/cmm (130-400); Red Blood Count 4.57 10^6/uL (4.1-5.3); Red Cell Distribution Width 15.1 % (12.1-15.1); White Blood Count 5.1 10^3/uL (4.0-10.0)
[2022-09-14 14:37] LABS: Carcinoembryonic Antigen 1.8 ng/mL (0.0-4.7)
[2022-09-14 14:48] LABS: Alanine Aminotransferase 39 U/L (0-41); Albumin Level 4.4 g/dL (3.5-5.2); Alkaline Phosphatase 81 U/L (40-130); Anion Gap 15.9 (5-19); Aspartate Amino Transferase 36 U/L (0-40); Blood Urea Nitrogen 13 mg/dL (8-23); Calcium 9.1 mg/dL (8.5-10.5); Carbon Dioxide 24 mmol/L (22-29); Chloride 102 mmol/L (98-107); Globulin 2.5 g/dL (1.3-4.6); Glomerular Filtration Rate 60.4 mL/min (90-130); Glucose 129 mg/dL (65-115); Osmolality Calculated 288 mOsm/kg (285-295); Potassium 3.9 mmol/L (3.5-5.1); Sodium 138 mmol/L (136-145); Total Bilirubin 0.4 mg/dL (0.15-1.2); Total Protein 6.9 g/dL (6.6-8.7)
== END 2022-09-14 23:59 | disposition home or self-care (01) ==
PROVIDERS: PCP Nurse Practitioner; Visit Provider Internal Medicine Medical Oncology
DX: Z08 Encounter for follow-up examination after completed treatment for malignant neoplasm (principal); Z85.038 Personal history of other malignant neoplasm of large intestine; Z85.49 Personal history of malignant neoplasm of other male genital organs; Z92.21 Personal history of antineoplastic chemotherapy; C18.7 Malignant neoplasm of sigmoid colon
CPT/HCPCS: 36415; 80053; 82378; 85025; 99213; J1642

== ENCOUNTER → 2022-10-08 09:43 | Outpatient (BNVA) | payer MEDICARE, SELFPAY | PROVIDERS: PCP Nurse Practitioner; Visit Provider Nurse Practitioner | DX: E11.9 Type 2 diabetes mellitus without complications (principal); E61.1 Iron deficiency | CPT/HCPCS: 83036; 83540 ==

== ENCOUNTER 2022-12-08 08:30 | Outpatient (CLI) | payer MEDICARE, SELFPAY ==
[2022-12-08] MEDS: iohexol 350 mg/mL 500 mL Btl (per mL) PO (08:50)
--- NOTE | 2022-12-08 09:30 | CT_ITS ---
WS: [id number] CT ABDOMEN AND PELVIS WITH CONTRAST HISTORY: Surveilance penile and colon colon cancer TECHNIQUE: Imaging performed of the abdomen and pelvis with IV contrast. Single phase imaging of the abdomen. Coronal and sagittal reformats are submitted. All CT scans at [facility] use at [facility] one of these dose optimization techniques: automated exposure control; mA and/or kV adjustment per patient size (includes targeted exams where dose is matched to clinical indication); or iterative re construction. IV CONTRAST: Omnipaque 350; 100 mL IV. Oral contrast: Yes. DLP: 492.55 mGy.cm COMPARISON: 06/04/2022 Lower thorax: There are few areas of mild groundglass attenuation at the lung bases. No mass. Heart i s normal size. Small hiatal hernia. Liver/biliary system: Normal size with no intrahepatic dilatation. Gallbladder: Normal. No gallstones or wall thickening. No pericholecystic fluid. Pancreas: Normal size pancreas and pancreatic duct. No adjacent inflammation. Spleen: Normal size spleen with granulomata. Adrenal glands: Normal. Right kidney: No obstruction or solid mass. Small extrarenal pelvis. Left kidney: No obstruction or solid mass. Extrarenal pelvis. Aorta: Mild atherosclerosis with no aneurysm. Lymphadenopathy: None. Free fluid: None. GI tract: No obstruction. Prior appendectomy. Sigmoid anastomosis is intact. No adjacent mass or nodu le. No obstructive changes. Abdominal wall: Unremarkable abdominal wall. No hernia. Pelvis: No free fluid or adenopathy within the pelvis. Bilateral patent inguinal canals. No adenopath y. Mildly prominent inguinal lymph nodes are similar to the prior study from 06/04/2022. Mild prostate gland enlargement and encroachment into the base of the urinary bladder. Bones: LEFT mild rotary scoliosis. IMPRESSION: 1. No significant adenopathy in the abdomen or pelvis. 2. Sigmoid anastomotic surgical site is intact. No recurrence or obstruction. 3. No metastatic disease to the liver or adrenal glands. 4. Mildly prominent inguinal lymph nodes are stable. 5. Prior appendectomy.
[2022-12-08 09:42] LABS: Blood Urea Nitrogen 13 mg/dL (8-23); Glomerular Filtration Rate 60.4 mL/min (90-130)
[2022-12-08] MEDS: iohexol 350 mg/mL 500 mL Btl (per mL) IV (09:48)
== END 2022-12-08 08:31 | disposition home or self-care (01) ==
LOC: RAD 08:30
PROVIDERS: PCP Nurse Practitioner; Visit Provider Internal Medicine Medical Oncology
DX: C18.7 Malignant neoplasm of sigmoid colon (principal); C60.9 Malignant neoplasm of penis, unspecified; Z98.0 Intestinal bypass and anastomosis status
CPT/HCPCS: 74177; 82565; 84520; Q9967

== ENCOUNTER 2022-12-21 10:52 | Oncology outpatient (recurring) (ONCR) | payer MEDICARE, SELFPAY ==
[2022-12-21 11:28] VITALS: BP 151/78; PULSE 65; RESP 16; TEMP 36.7; O2SAT 95
[2022-12-21 12:06] LABS: Basophils % 0.9 %; Eosinophils # 0.1 10^3/uL (0.0-0.8); Eosinophils % 3.2 %; Hematocrit 44.3 % (37-53); Lymphocytes # 1.3 10^3/uL (0.8-4.8); Lymphocytes % 29.5 %; Mean Corpuscular HGB Conc 32.3 g/dL (30-55); Mean Corpuscular Hemoglobin 30.3 pg (27-33); Mean Corpuscular Volume 93.9 fl (82-101); Monocytes # 0.4 10^3/uL (0.2-0.9); Neutrophils # 2.56 10^3/uL (1.8-7.7); Neutrophils % 58.2 %; Nucleated Red Blood Cells % 0 %; Platelet Count 268 10^3/cmm (157-399); Red Blood Count 4.72 10^6/uL (3.85-5.65); Red Cell Distribution Width 13.4 % (12.1-15.1)
[2022-12-21 12:36] LABS: Alanine Aminotransferase 45 U/L (0-41); Albumin Level 4.2 g/dL (3.5-5.2); Alkaline Phosphatase 79 U/L (40-130); Anion Gap 14.9 (5-19); Aspartate Amino Transferase 34 U/L (0-40); Blood Urea Nitrogen 12 mg/dL (8-23); Calcium 8.8 mg/dL (8.5-10.5); Carbon Dioxide 24 mmol/L (22-29); Chloride 102 mmol/L (98-107); Creatinine Clr Calc Pharmacy 69.9063; Globulin 2.9 g/dL (1.3-4.6); Glomerular Filtration Rate 60.4 mL/min (90-130); Glucose 191 mg/dL (65-115); Osmolality Calculated 289 mOsm/kg (285-295); Potassium 3.9 mmol/L (3.5-5.1); Sodium 137 mmol/L (136-145); Total Bilirubin 0.5 mg/dL (0.15-1.2); Total Protein 7.1 g/dL (6.6-8.7)
== END 2023-01-14 23:59 | disposition home or self-care (01) ==
PROVIDERS: Internal Medicine Medical Oncology; PCP Nurse Practitioner; Visit Provider Internal Medicine Medical Oncology
DX: Z45.2 Encounter for adjustment and management of vascular access device (principal); C18.7 Malignant neoplasm of sigmoid colon; C60.9 Malignant neoplasm of penis, unspecified; C60.1 Malignant neoplasm of glans penis; Z92.21 Personal history of antineoplastic chemotherapy; Z79.899 Other long term (current) drug therapy
CPT/HCPCS: 36415; 80053; 85025; 99213

== ENCOUNTER → 2023-04-01 09:52 | Outpatient (BNVA) | payer MEDICARE, SELFPAY | PROVIDERS: PCP Nurse Practitioner; Visit Provider Nurse Practitioner | DX: E11.9 Type 2 diabetes mellitus without complications (principal); C60.1 Malignant neoplasm of glans penis | CPT/HCPCS: 80053; 80061; 82607; 83036; 85025 ==

== ENCOUNTER → 2023-04-20 10:35 | Outpatient (BNVA) | payer MEDICARE, SELFPAY | PROVIDERS: PCP Nurse Practitioner; Visit Provider Internal Medicine Medical Oncology | DX: C18.7 Malignant neoplasm of sigmoid colon (principal); C60.1 Malignant neoplasm of glans penis; Z95.828 Presence of other vascular implants and grafts; Z92.21 Personal history of antineoplastic chemotherapy; C77.8 Secondary and unspecified malignant neoplasm of lymph nodes of multiple regions | CPT/HCPCS: 99214 ==

== ENCOUNTER → 2023-04-29 08:51 | Outpatient (BNVA) | payer MEDICARE, SELFPAY | PROVIDERS: PCP Nurse Practitioner; Visit Provider Surgery | DX: C18.7 Malignant neoplasm of sigmoid colon (principal); Z98.890 Other specified postprocedural states; Z95.828 Presence of other vascular implants and grafts | CPT/HCPCS: 99214 ==

== ENCOUNTER 2023-05-27 08:16 | Day surgery (SDC) | payer MEDICARE, SELFPAY ==
[2023-05-27 08:43] VITALS: BP 127/70; PULSE 56; RESP 18; TEMP 36.2; O2SAT 94; BMI 27.1
[2023-05-27 08:47] LABS: Glucose Point of Care 136 mg/dL (70-110)
[2023-05-27] MEDS: sodium chloride 0.9% 1,000 ML 30 ML IV (08:47)
--- NOTE | 2023-05-27 09:26 | P.ANESASSM_ITS ---
Pre-Anesthetic Assessment Height/Weight: Height 1.83 m Weight 90.718 kg Temp Pulse Resp BP Pulse Ox O2 Del Method 97.2 F L 56 L 18 127/70 94 Room Air 05/27/23 08:43 05/27/23 08:43 05/27/23 08:43 05/27/23 08:43 05/27/23 08:43 05/27/23 08:43 Operation Date: 05/27/23 09:30 Proposed Procedures p Colonoscopy(Not Applicable) - Giacomo Osorio DO Familial anesthetic complications: none Was Beta Leo taken within 24 hours: N/A Was Clonidine taken within 24 hours: N/A Last intake: Intake Last Liquid Date 05/26/23 Last Liquid Time 21:00 Last Solid Date 05/25/23 Last Solid Time 18:00 Social No alcohol and No tobacco Exam alert and oriented x 3 Airway Submandibular: within normal limits Cervical ROM: within normal limits Mallampati: Class III Dentition: false (uppers) Pulmonary None reported CV/HEM Hypertension None reported Hepatic None reported GI Gastroesophageal Reflux Disease 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 finished chemo 2 years ago. [facility] None reported Neuropsych None reported Anesthetic Plan ASA status: 3 Anesthesia: Anesthesia Evaluation, General and MAC Risk of > 500 ml blood loss (7ml/kg in children): No Medications/Allergies Home Medications Medication Instructions Recorded Confirmed Last Taken Type lidocaine-prilocaine 2.5 %-2.5 % 1 applic topical DIRECTED #30 04/06/22 05/27/23 Unknown Rx topical cream grams mupirocin 2 % topical ointment 1 applic topical BID PRN skin 10/08/22 05/27/23 Unknown Rx irritation #22 grams amlodipine 5 mg tablet 5 mg PO DAILY #90 tabs 04/01/23 05/27/23 05/26/23 Rx finasteride 5 mg tablet (Proscar) 5 mg PO DAILY #90 tabs 04/01/23 05/27/23 05/26/23 Rx furosemide 20 mg tablet (Lasix) 20 mg PO DAILY PRN swelling #90 04/01/23 05/27/23 05/24/23 Rx tabs olmesartan 40 mg tablet (Benicar) 40 mg PO DAILY #90 tabs 02/15/24 04/11/24 04/10/24 Rx pravastatin 40 mg tablet 40 mg PO DAILY #90 tabs 04/01/23 05/27/23 05/26/23 Rx sucralfate 1 gram tablet (Carafate) 1 g PO BID #180 tabs 04/01/23 05/27/23 05/26/23 Rx tamsulosin 0.4 mg capsule (Flomax) 0.4 mg PO DAILY #90 caps 04/01/23 05/27/23 05/26/23 Rx tizanidine 2 mg capsule (Zanaflex) 2 mg PO Q12H PRN muscle spasticity 04/01/23 05/27/23 Unknown Rx #180 caps empagliflozin 25 mg tablet 25 mg PO QAM #90 tabs 04/20/23 05/27/23 05/26/23 Rx (Jardiance) Allergies Allergy/AdvReac Type Severity Reaction Status Date / Time No Known Allergies Allergy Verified 05/27/23 08:42 Current Medications Generic Name Dose Route Start Last Admin Trade Name Freq PRN Reason Stop Dose Admin Sodium Chloride 1,000 mls @ 30 mls/hr 05/27/23 08:45 05/27/23 08:47 Sodium Chloride 0.9% IV 05/28/23 08:44 30 mls/hr .Q24H FARTUN Administration PFSH Anesthesia Medical History (Updated 04/29/23 @ 09:31 by Rona Adorno) Colon cancer Scrotal swelling Squamous cell skin cancer, 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 Partial penectomy 08/11/2019. Elevated PSA BPH NOS w ur obs/LUTS Reflux gastritis Mixed hyperlipidemia Controlled diabetes mellitus without complication HTN, goal below 130/80 Surgical History (Updated 04/29/23 @ 09:12 by Giacomo Osorio DO) History of penectomy (08/11/19) Partial penectomy History of colon surgery (03/09/22) Open sigmoid colectomy in [place], [place] by Dr. Saucedo. History of colonoscopy July, in [place], [place] Port-A-Cath in place (11/24/19) History of appendectomy Family History Father CAD (coronary artery disease) Sister Cancer Mother Cancer Other Diabetes Hypertension Denies family history of Anesthesia complication Bleeding disorder Social History Smoking and tobacco/nicotine status: never used tobacco/nicotine Second hand smoke exposure: No Alcohol intake: never Substance/Drug Use: never Adopted: No Caregiver/support person: No Lives independently: Yes Household members: spouse Housing: House Marital status: Number of children: 2 service: No Current occupational status: retired Pets and animals: No Do you think of yourself as: Straight/Heterosexual Current gender identity: Male Data Anesthesia Cardiac Studies: No Data to Display
--- NOTE | 2023-05-27 10:16 | W.PM.OPSUD ---
Surgery/Procedure H&P Update DATE OF PROCEDURE: May 27, 2023 DATE H&P PERFORMED: 04/29/23 H&P UPDATE INFORMATION: I have reviewed H&P completed within last 30 days, I have examined patient prior to procedure and No changes to prior documentation PLANNED PROCEDURE: Operation Date: 05/27/23 09:30 Proposed Procedures p Colonoscopy(Not Applicable) - Giacomo Osorio DO
[2023-05-27 10:29] VITALS: BP 100/66; PULSE 63; RESP 12; TEMP 36.1; O2SAT 95
[2023-05-27 10:39] VITALS: BP 127/86; PULSE 57; RESP 18; O2SAT 96
--- NOTE | 2023-05-27 14:59 | ANE.PACU2 ---
Inpatient post-anesthesia follow up: Airway intact: Yes Vital signs: Temperature 97.0 F Pulse Rate 57 Respiratory Rate 18 Blood Pressure 127/86 Pulse Oximetry 96 Oxygen Delivery Me thod Room Air Oxygen Flow Rate Fraction of Inspir ed Oxygen Hydration adequate: Yes Nausea and vomiting: No Pain level: 2 Mental status: Baseline
== END 2023-05-27 11:07 | disposition home or self-care (01) ==
PROVIDERS: PCP Nurse Practitioner; Visit Provider Surgery
PROC: 0DJD8ZZ Inspection of Lower Intestinal Tract, Via Natural or Artificial Opening Endoscopic (ICD-10-PCS; CPT 45378; principal; 2023-05-27 09:30)
DX: Z12.11 Encounter for screening for malignant neoplasm of colon (principal); K57.30 Diverticulosis of large intestine without perforation or abscess without bleeding; Z85.038 Personal history of other malignant neoplasm of large intestine; Z95.828 Presence of other vascular implants and grafts; Z98.890 Other specified postprocedural states; N40.1 Benign prostatic hyperplasia with lower urinary tract symptoms; N13.8 Other obstructive and reflux uropathy; E78.2 Mixed hyperlipidemia; E11.9 Type 2 diabetes mellitus without complications; I10 Essential (primary) hypertension
CPT/HCPCS: 36416; 82962; G0121; J2704; J7030

== ENCOUNTER 2023-06-03 11:56 | Outpatient (CLI) | payer MEDICARE, SELFPAY ==
[2023-06-03] MEDS: iohexol 350 mg/mL 500 mL Btl (per mL) PO (12:59)
--- NOTE | 2023-06-03 13:00 | CTR_ITS ---
PROCEDURE INFORMATION: Exam: CT Chest With Contrast; Diagnostic Exam date and time: 06/03/2023 1:21 PM Age: 68 years old Clinical indication: Condition or disease; Cancer; Other: F/u colon CA; Prior surgery; Surgery date: 6+ months; Surgery type: Colon, appy; Additional info: Surveillance TECHNIQUE: Imaging protocol: Diagnostic computed tomography of the chest with contrast. Radiation optimization: All CT scans at this facility use at least one of these dose optimization techniques: automated exposure control; mA and/or kV adjustment per patient size (includes targeted exams where dose is matched to clinical indication); or iterative reconstruction. Contrast material: OMNIPAQUE; Contrast volume: 100 ml; Contrast route: INTRAVENOUS (IV); COMPARISON: CR XR chest 1V portable [id number] 08/31/2020 10:04 AM RADIATION DOSE METRICS: Total DLP (mGy-cm): 973.93 FINDINGS: Thyroid: Grossly unremarkable. Lungs: No focal consolidation. Pleural spaces: No pleural effusion. No pneumothorax. Heart: No cardiomegaly. No pericardial effusion. Mediastinal space: Trachea and central airways are grossly patent. Left-sided MediPort with tip terminating in the proximal SVC. Lymph nodes: No evidence of mediastinal or hilar adenopathy. Calcified mediastinal nodes compatible with sequela of a remote granulomatous process. Vasculature: No aneurysmal dilatation of the thoracic aorta. No evidence of dissection. Though this study is not tailored to evaluate for pulmonary thromboembolism, there is no evidence of PE within limitations of respiratory motion. Bones/joints: No evidence of acute fracture or aggressive osseous lesion. Soft tissues: No fluid collection or hematoma in the superficial soft tissues. PROCEDURE INFORMATION: Exam: CT Abdomen And Pelvis With Contrast Exam date and time: 06/03/2023 1:21 PM Age: 68 years old Clinical indication: Condition or disease; Cancer; Other: F/u colon CA; Prior surgery; Surgery date: 6+ months; Surgery type: Colon, appy; Additional info: Surveillance TECHNIQUE: Imaging protocol: Computed tomography of the abdomen and pelvis with contrast. Radiation optimization: All CT scans at this facility use at least one of these dose optimization techniques: automated exposure control; mA and/or kV adjustment per patient size (includes targeted exams where dose is matched to clinical indication); or iterative reconstruction. Contrast material: OMNIPAQUE; Contrast volume: 100 ml; Contrast route: INTRAVENOUS (IV); COMPARISON: CT abdomen pelvis w con* [id number] 12/08/2022 9:46 AM RADIATION DOSE METRICS: Total DLP (mGy-cm): 973.93 FINDINGS: Liver: Hepatic steatosis. No evidence of focal hepatic lesion. Gallbladder and bile ducts: Unremarkable. No intra-hepatic or extra-hepatic biliary dilatation. Pancreas: Unremarkable. Spleen: Multiple splenic calcifications compatible with sequela of a remote granulomatous process. Otherwise grossly unremarkable. Adrenal glands: Unremarkable. Kidneys and ureters: No renal parenchymal abnormality. No hydronephrosis or ureteral stone. Stomach and bowel: Postsurgical changes of the sigmoid colon. No evidence of bowel obstruction or perienteric inflammatory changes. Appendix: Status post appendectomy. Intraperitoneal space: No evidence of free air or fluid collection. Vasculature: Mild aortobiiliac atherosclerosis without aneurysmal dilatation or dissection. The celiac trunk, SMA and AIDEN are grossly patent. No evidence of IVC thrombus. The portal vein, SMV and splenic veins are grossly patent. Lymph nodes: No adenopathy. Urinary bladder: Grossly unremarkable. Reproductive: Grossly unremarkable. Bones/joints: No evidence of acute fracture or aggressive osseous lesion. Moderate multilevel spondylosis of the lumbar spine with facet arthrosis and osteophytosis. Soft tissues: No evidence of fluid collection or hematoma in the superficial soft tissues. CT/CT chest abdpel w/*[id number] IMPRESSION: 1. No evidence of metastatic disease in the chest. IMPRESSION: 1. No evidence of recurrent or metastatic disease in the abdomen or pelvis.
[2023-06-03 13:20] LABS: Blood Urea Nitrogen 13 mg/dL (8-23); Glomerular Filtration Rate 60.2 mL/min (90-130)
[2023-06-03] MEDS: iohexol 350 mg/mL 500 mL Btl (per mL) IV (13:26)
== END 2023-06-03 11:57 | disposition home or self-care (01) ==
LOC: RAD 11:56
PROVIDERS: PCP Nurse Practitioner; Visit Provider Internal Medicine Medical Oncology
DX: C18.7 Malignant neoplasm of sigmoid colon (principal); C60.1 Malignant neoplasm of glans penis
CPT/HCPCS: 71260; 74177; 82565; 84520; Q9967

== ENCOUNTER → 2023-06-14 13:48 | Outpatient (BNVA) | payer MEDICARE, SELFPAY | PROVIDERS: PCP Nurse Practitioner; Visit Provider Surgery | DX: Z95.828 Presence of other vascular implants and grafts (principal) | CPT/HCPCS: 36590; 99214 ==

== ENCOUNTER 2023-07-13 12:49 | Oncology outpatient (recurring) (ONCR) | payer MEDICARE, SELFPAY ==
[2023-07-13 13:25] LABS: Basophils % 0.8 %; Eosinophils # 0.2 10^3/uL (0.0-0.8); Eosinophils % 3.5 %; Hematocrit 48.7 % (37-53); Lymphocytes # 1.2 10^3/uL (0.8-4.8); Lymphocytes % 25.4 %; Mean Corpuscular HGB Conc 34.1 g/dL (30-55); Mean Corpuscular Hemoglobin 33.1 pg (27-33); Mean Platelet Volume 8.5 fL (7.4-10.4); Monocytes # 0.5 10^3/uL (0.2-0.9); Monocytes % 9.6 %; Neutrophils # 2.95 10^3/uL (1.8-7.7); Neutrophils % 60.3 %; Nucleated Red Blood Cells % 0 %; Platelet Count 267 10^3/cmm (157-399); Red Blood Count 5.02 10^6/uL (3.85-5.65); Red Cell Distribution Width 13.1 % (12.1-15.1); White Blood Count 4.89 10^3/uL (3.29-11.43)
[2023-07-13 13:56] LABS: Carcinoembryonic Antigen 1.6 ng/mL (0.0-4.7)
[2023-07-13 14:08] LABS: Alanine Aminotransferase 110 U/L (0-41); Albumin Level 4.4 g/dL (3.5-5.2); Alkaline Phosphatase 84 U/L (40-130); Aspartate Amino Transferase 72 U/L (0-40); Blood Urea Nitrogen 13 mg/dL (8-23); Calcium 8.8 mg/dL (8.5-10.5); Carbon Dioxide 23 mmol/L (22-29); Chloride 103 mmol/L (98-107); Globulin 3.2 g/dL (1.3-4.6); Glomerular Filtration Rate 66.6 mL/min (90-130); Glucose 127 mg/dL (65-115); Osmolality Calculated 290 mOsm/kg (285-295); Sodium 139 mmol/L (136-145); Total Bilirubin 0.6 mg/dL (0.15-1.2); Total Protein 7.6 g/dL (6.6-8.7)
[2023-07-13 14:29] LABS: Anion Gap 16.8 (5-19); Potassium 3.8 mmol/L (3.5-5.1)
== END 2023-07-16 23:59 | disposition home or self-care (01) ==
LOC: ONCMED 12:49
PROVIDERS: PCP Nurse Practitioner; Visit Provider Internal Medicine Medical Oncology
DX: C18.7 Malignant neoplasm of sigmoid colon (principal); C60.1 Malignant neoplasm of glans penis
CPT/HCPCS: 36415; 80053; 82378; 85025; 99214

== ENCOUNTER → 2023-09-16 08:47 | Outpatient (BNVA) | payer MEDICARE, SELFPAY | PROVIDERS: PCP Nurse Practitioner; Visit Provider Nurse Practitioner | DX: I10 Essential (primary) hypertension (principal); E11.9 Type 2 diabetes mellitus without complications; Z12.5 Encounter for screening for malignant neoplasm of prostate; C18.7 Malignant neoplasm of sigmoid colon | CPT/HCPCS: 80053; 80061; 83036; 84443; G0103 ==

== ENCOUNTER → 2023-12-02 08:25 | Outpatient (BNVA) | payer MEDICARE, SELFPAY | PROVIDERS: PCP Nurse Practitioner; Visit Provider Nurse Practitioner | DX: E11.9 Type 2 diabetes mellitus without complications (principal) | CPT/HCPCS: 80048 ==

== ENCOUNTER 2024-01-11 14:28 | Oncology outpatient (recurring) (ONCR) | payer MEDICARE, SELFPAY | END 2024-01-15 23:59 | disposition home or self-care (01) | PROVIDERS: PCP Nurse Practitioner; Visit Provider Internal Medicine Medical Oncology | DX: C18.7 Malignant neoplasm of sigmoid colon (principal); C60.1 Malignant neoplasm of glans penis | CPT/HCPCS: 99213 ==

== ENCOUNTER → 2024-03-02 08:38 | Outpatient (BNVA) | payer MEDICARE, SELFPAY | PROVIDERS: PCP Nurse Practitioner; Visit Provider Nurse Practitioner | DX: Z12.5 Encounter for screening for malignant neoplasm of prostate (principal); E11.9 Type 2 diabetes mellitus without complications | CPT/HCPCS: 80053; 80061; 83036 ==

== ENCOUNTER 2024-07-11 11:30 | Oncology outpatient (recurring) (ONCR) | payer MEDICARE, SELFPAY ==
[2024-07-07] MEDS: iohexol 350 mg/mL 500 mL Btl (per mL) PO (11:48)
--- NOTE | 2024-07-07 12:00 | CTR_ITS ---
PROCEDURE INFORMATION: Exam: CT Chest With Contrast; Diagnostic Exam date and time: 07/07/2024 12:39 PM Age: 69 years old Clinical indication: Condition or disease; Other: Malignant neoplasm of glans penis; Prior surgery; Surgery date: 6+ months; Surgery type: Port, sice removed; Additional info: Surveillance TECHNIQUE: Imaging protocol: Diagnostic computed tomography of the chest with contrast. Radiation optimization: All CT scans at this facility use at least one of these dose optimization techniques: automated exposure control; mA and/or kV adjustment per patient size (includes targeted exams where dose is matched to clinical indication); or iterative reconstruction. Contrast material: OMNI 320; Contrast volume: 100 ml; Contrast route: INTRAVENOUS (IV); COMPARISON: CT chest abdpel w/*[id number] 06/03/2023 1:21 PM RADIATION DOSE METRICS: Total DLP (mGy-cm): 845.62 FINDINGS: Trachea: Central airways are patent. Lungs: Cystic lung changes along the anterior right lower lobe, unchanged. No focal lung consolidations, no suspicious lung nodules. Pleural spaces: Unremarkable. No pneumothorax. No pleural effusion. Heart: Unremarkable. No cardiomegaly. No pericardial effusion. Coronary arteries: No coronary artery calcifications. Lymph nodes: 1.1 centimeter enlarged right paratracheal cervical lymph node, previously 1.2 centimeters. 1.3 centimeters enlarged right paratracheal lymph node, previously 1.6 centimeters. Partially calcified left perihilar lymph node. Partially calcified subcarinal lymph node. Right lower neck level 5 prominent lymph node measuring 0.6 centimeters. Vasculature: Unremarkable. No aortic aneurysm. Bones/joints: Unremarkable. No acute fracture. Soft tissues: Unremarkable. PROCEDURE INFORMATION: Exam: CT Abdomen And Pelvis With Contrast Exam date and time: 07/07/2024 12:39 PM Age: 69 years old Clinical indication: Condition or disease; Other: Malignant neoplasm of glans penis; Prior surgery; Surgery date: 6+ months; Surgery type: Port, sice removed; Additional info: Surveillance TECHNIQUE: Imaging protocol: Computed tomography of the abdomen and pelvis with contrast. Radiation optimization: All CT scans at this facility use at least one of these dose optimization techniques: automated exposure control; mA and/or kV adjustment per patient size (includes targeted exams where dose is matched to clinical indication); or iterative reconstruction. Contrast material: OMNI 320; Contrast volume: 100 ml; Contrast route: INTRAVENOUS (IV); COMPARISON: CT abdomen pelvis w con* [id number] 12/08/2022 9:46 AM RADIATION DOSE METRICS: Total DLP (mGy-cm): 845.62 FINDINGS: Liver: Normal. No mass. Gallbladder and biliary ducts: Normal. No calcified stones. No ductal dilation. Pancreas: Normal. No ductal dilation. Spleen: Normal. No splenomegaly. Adrenal glands: Normal. No mass. Kidneys and ureters: Normal. No hydronephrosis. Stomach and bowel: Unremarkable. No obstruction. No mucosal thickening. Appendix: No evidence of appendicitis. Intraperitoneal space: Unremarkable. No free air. No significant fluid collection. Vasculature: Unremarkable. No abdominal aortic aneurysm. Lymph nodes: Unremarkable. No enlarged lymph nodes. Urinary bladder: Unremarkable as visualized. Reproductive: Unremarkable as visualized. Bones/joints: Unremarkable. No acute fracture. Soft tissues: Unremarkable. CT/CT chest abdpel w/*[id number] IMPRESSION: 1. Unchanged mediastinal lymphadenopathy as described above. 2. No suspicious lung nodules IMPRESSION: No acute findings.
[2024-07-07 12:35] LABS: Blood Urea Nitrogen 12 mg/dL (8-23); Glomerular Filtration Rate 66.4 mL/min (90-130)
[2024-07-07] MEDS: iohexol 350 mg/mL 500 mL Btl (per mL) IV (12:41)
[2024-07-11 11:51] LABS: Basophils % 0.6 %; Eosinophils # 0.2 10^3/uL (0.0-0.8); Eosinophils % 2.3 %; Hematocrit 50.9 % (37-53); Lymphocytes # 1.8 10^3/uL (0.8-4.8); Mean Corpuscular HGB Conc 33.6 g/dL (30-55); Mean Corpuscular Hemoglobin 32.1 pg (27-33); Mean Corpuscular Volume 95.5 fl (82-101); Mean Platelet Volume 8.5 fL (7.4-10.4); Monocytes # 0.5 10^3/uL (0.2-0.9); Monocytes % 7.9 %; Neutrophils # 3.93 10^3/uL (1.8-7.7); Nucleated Red Blood Cells % 0 %; Platelet Count 326 10^3/cmm (157-399); Red Blood Count 5.33 10^6/uL (3.85-5.65); Red Cell Distribution Width 12.4 % (12.1-15.1); White Blood Count 6.44 10^3/uL (3.29-11.43)
[2024-07-11 12:27] LABS: Carcinoembryonic Antigen 1.5 ng/mL (0.0-4.7)
[2024-07-11 12:38] LABS: Alanine Aminotransferase 35 U/L (0-41); Albumin Level 4.7 g/dL (3.5-5.2); Alkaline Phosphatase 99 U/L (40-130); Anion Gap 15.8 (5-19); Aspartate Amino Transferase 27 U/L (0-40); Blood Urea Nitrogen 13 mg/dL (8-23); Calcium 9.9 mg/dL (8.5-10.5); Carbon Dioxide 25 mmol/L (22-29); Chloride 98 mmol/L (98-107); Creatinine Clr Calc Pharmacy 78.8341; Globulin 3.6 g/dL (1.3-4.6); Glomerular Filtration Rate 74.1 mL/min (90-130); Glucose 190 mg/dL (65-115); Osmolality Calculated 285 mOsm/kg (285-295); Potassium 3.8 mmol/L (3.5-5.1); Sodium 135 mmol/L (136-145); Total Bilirubin 0.5 mg/dL (0.15-1.2); Total Protein 8.3 g/dL (6.6-8.7)
== END 2024-07-15 23:59 | disposition home or self-care (01) ==
PROVIDERS: PCP Nurse Practitioner; Visit Provider Nurse Practitioner Family
DX: Z53.9 Procedure and treatment not carried out, unspecified reason; Z08 Encounter for follow-up examination after completed treatment for malignant neoplasm; Z85.49 Personal history of malignant neoplasm of other male genital organs; Z85.038 Personal history of other malignant neoplasm of large intestine; Z90.89 Acquired absence of other organs; Z92.3 Personal history of irradiation; Z90.49 Acquired absence of other specified parts of digestive tract
CPT/HCPCS: 36415; 71260; 74177; 80053; 82378; 82565; 84520; 85025; 99214

== ENCOUNTER → 2024-09-11 10:54 | Outpatient (BNVA) | payer MEDICARE, SELFPAY | PROVIDERS: PCP Nurse Practitioner; Visit Provider Nurse Practitioner | DX: E11.9 Type 2 diabetes mellitus without complications (principal); Z12.5 Encounter for screening for malignant neoplasm of prostate | CPT/HCPCS: 80053; 80061; 81000; 83036; G0103 ==

== ENCOUNTER 2025-01-08 11:30 | Oncology outpatient (recurring) (ONCR) | payer MEDICARE, SELFPAY ==
--- NOTE | 2025-01-02 11:00 | CTR_ITS ---
PROCEDURE INFORMATION: Exam: CT Chest With Contrast; Diagnostic Exam date and time: 01/02/2025 11:57 AM Age: 69 years old Clinical indication: Condition or disease; Other: Malignant neoplasm of sigmoid colon, prior surgery; Surgery date: 6+ months; Surgery type: Port out TECHNIQUE: Imaging protocol: Diagnostic computed tomography of the chest with contrast. Radiation optimization: All CT scans at this facility use at least one of these dose optimization techniques: automated exposure control; mA and/or kV adjustment per patient size (includes targeted exams where dose is matched to clinical indication); or iterative reconstruction. Contrast material: OMNI 350; Contrast volume: 100 ml; Contrast route: INTRAVENOUS (IV); COMPARISON: CT chest abdpel w/*[id number] 07/07/2024 12:39 PM RADIATION DOSE METRICS: Total DLP (mGy-cm): 792.28 FINDINGS: Lungs: Stable pulmonary cyst in the right middle lobe inferiorly. Small calcified left lower lobe pulmonary nodule again seen. Pleural spaces: Unremarkable. No pneumothorax. No pleural effusion. Heart: Unremarkable. No cardiomegaly. No pericardial effusion. Lymph nodes: Right paratracheal adenopathy is stable. Superiorly lymph node measures 1 cm in short axis and more inferiorly 1.2 cm, both without change. Vasculature: Unremarkable. No aortic aneurysm. Bones/joints: Unremarkable. No acute fracture. Soft tissues: Unremarkable. PROCEDURE INFORMATION: Exam: CT Abdomen And Pelvis With Contrast Exam date and time: 01/02/2025 11:57 AM Age: 69 years old Clinical indication: Condition or disease; Other: Malignant neoplasm of sigmoid colon, prior surgery; Surgery date: 6+ months; Surgery type: Port out TECHNIQUE: Imaging protocol: Computed tomography of the abdomen and pelvis with contrast. Radiation optimization: All CT scans at this facility use at least one of these dose optimization techniques: automated exposure control; mA and/or kV adjustment per patient size (includes targeted exams where dose is matched to clinical indication); or iterative reconstruction. Contrast material: OMNI 350; Contrast volume: 100 ml; Contrast route: INTRAVENOUS (IV); COMPARISON: CT chest abdpel w/*[id number] 07/07/2024 12:39 PM RADIATION DOSE METRICS: Total DLP (mGy-cm): 792.28 FINDINGS: Liver: Normal. No mass. Gallbladder and biliary ducts: Normal. No calcified stones. No ductal dilation. Pancreas: Normal. No ductal dilation. Spleen: There are some scattered punctate splenic calcifications again seen. Adrenal glands: Normal. No mass. Kidneys and ureters: Normal. No hydronephrosis. Stomach and bowel: Status post surgery with staple line seen in the sigmoid colon. No bowel wall thickening or bowel dilatation., Appendix: No evidence of appendicitis. Intraperitoneal space: Unremarkable. No free air. No significant fluid collection. Vasculature: Unremarkable. No abdominal aortic aneurysm. Lymph nodes: Unremarkable. No enlarged lymph nodes. Urinary bladder: Unremarkable as visualized. Reproductive: Unremarkable as visualized. Bones/joints: Unremarkable. No acute fracture. Soft tissues: Unremarkable. CT/CT chest abdpel w/*[id number] IMPRESSION: Stable right paratracheal adenopathy. IMPRESSION: 1. No evidence of metastatic disease in the abdomen or pelvis. 2. Postsurgical changes of the sigmoid colon.
[2025-01-02 12:00] LABS: Blood Urea Nitrogen 15 mg/dL (8-23)
[2025-01-02] MEDS: iohexol 350 mg/mL 500 mL Btl (per mL) PO (12:06)
[2025-01-02] MEDS: iohexol 350 mg/mL 500 mL Btl (per mL) IV (12:06)
[2025-01-08 11:54] LABS: Hematocrit 48.3 % (37-53); Hemoglobin 16.40 g/dL (11.27-16.99); Mean Corpuscular HGB Conc 34.0 g/dL (30-55); Mean Corpuscular Hemoglobin 31.8 pg (27-33); Mean Corpuscular Volume 93.6 fl (82-101); Nucleated Red Blood Cells % 0 %; Platelet Count 284 10^3/cmm (157-399); Red Blood Count 5.16 10^6/uL (3.85-5.65); White Blood Count 5.53 10^3/uL (3.29-11.43)
[2025-01-08 12:14] LABS: Estmated Average Glucose 151; Hemoglobin A1C 6.9 % (4.0-6.0)
[2025-01-08 12:24] LABS: Carcinoembryonic Antigen 1.1 ng/mL (0.0-4.7)
[2025-01-08 12:25] LABS: Prostate Specific Antigen 3.110 ng/mL (0-4)
[2025-01-08 12:36] LABS: Alanine Aminotransferase 17 U/L (0-41); Albumin Level 4.8 g/dL (3.5-5.2); Alkaline Phosphatase 88 U/L (40-130); Anion Gap 12.8 (5-19); Aspartate Amino Transferase 19 U/L (0-40); Blood Urea Nitrogen 15 mg/dL (8-23); Calcium 9.0 mg/dL (8.5-10.5); Carbon Dioxide 26 mmol/L (22-29); Chloride 101 mmol/L (98-107); Globulin 2.7 g/dL (1.3-4.6); Glucose 117 mg/dL (65-115); Osmolality Calculated 284 mOsm/kg (285-295); Potassium 3.8 mmol/L (3.5-5.1); Sodium 136 mmol/L (136-145); Total Protein 7.5 g/dL (6.6-8.7)
== END 2025-01-14 23:59 | disposition home or self-care (01) ==
PROVIDERS: Internal Medicine Medical Oncology; PCP Nurse Practitioner; Visit Provider Nurse Practitioner Family
DX: Z53.9 Procedure and treatment not carried out, unspecified reason; C18.7 Malignant neoplasm of sigmoid colon; Z45.2 Encounter for adjustment and management of vascular access device; C60.9 Malignant neoplasm of penis, unspecified; C60.1 Malignant neoplasm of glans penis; Z92.21 Personal history of antineoplastic chemotherapy; Z79.899 Other long term (current) drug therapy; E11.9 Type 2 diabetes mellitus without complications; N40.1 Benign prostatic hyperplasia with lower urinary tract symptoms
CPT/HCPCS: 36415; 71260; 74177; 80053; 82378; 82565; 83036; 84153; 84520; 85025; 99214